=== PATIENT | male | born 1945 | race Caucasian/White ===

== ENCOUNTER 2019-04-30 12:20 | Emergency (ER) | payer OTHER, SELFPAY ==
[2019-04-30] VITALS (60 sets, daily range): BP systolic 138–177; BP diastolic 77–93; PULSE 64–96; RESP 12–28; TEMP 36.6–36.8; O2SAT 94–98
--- NOTE | 2019-04-30 12:41 | DI.RAD_ITS ---
EXAM: XR CHEST 2V PA LATERAL INDICATION: chest pain, exertional. COMPARISON: No exams were available for comparison TECHNIQUE: 2D digital imaging was performed. FINDINGS: The heart size is normal. The aorta is mildly tortuous but appears normal in diameter. Leads overli e the chest. The lungs appear clear. No pneumothorax, infiltrate or effusion is seen. There is no evidence of thoracic compression fractures. IMPRESSION: No acute abnormality.
--- NOTE | 2019-04-30 12:44 | W.ED.GENAD ---
Discharge Plan Disposition Patient Disposition: [facility] Condition: Serious Discharge Details Chief Complaint: Chest Pain Clinical Impression: Angina pectoris, unstable Primary Care Provider: Jose Alfredo Garcia ED Provider: Jolie Fajardo Home Meds and New Rx's Prescriptions: New amoxicillin 250 mg/5 mL suspension for reconstitution 500 mg PO BID 10 Days Qty: 200 RF: 0 Continued atenolol 25 MG tablet 1 tab PO DAILY RF: 0 aspirin [Aspir-81] 81 MG tablet,delayed release (DR/EC) 1 tab PO DAILY RF: 0 simvastatin 40 MG tablet 1 tab PO DAILY RF: 0 cyclobenzaprine 10 MG tablet 5 mg PO BID Qty: 20 RF: 0 hydrocodone-acetaminophen 1 TAB tablet 1 tab PO Q4H Qty: 15 RF: 0 potassium chloride [Klor-Con M20] 20 MEQ tablet,ER particles/crystals 20 meq PO DAILY Qty: 30 RF: 0 Discharge Instructions Instructions: Chest Pain (ED) Additional Instructions: You are leaving AGAINST MEDICAL ADVICE to go private vehicle to the [facility] in [place] where plan is for you to be admitted for your concerning chest pain. Please go directly there. Do not drive. Referrals: Jose Alfredo Garcia [Primary Care Provider] - Discharge Data Discharge Date/Time-TO BE ENTERED AT DEPARTURE: 04/30/19 18:20 Medical Decision Making <MYRA Hsu - Last Filed: 05/01/19 22:43> Is a 73-year-old patient with a history of a previous CO with a stent in place who has a history of high cholesterol and hypertension, former smoker presenting to the emergency room for exertional chest pain. Patient has had multiple episodes of exertional chest pain. Most recently this morning. Patient was shoveling snow and he had onset of substernal chest pain associated with diaphoresis and lightheadedness. Chest pain relieved with rest. Patient spoke with his CT doctor who recommended he come to the emergency room for further evaluation of his heart. Patient reports he is feeling at his baseline at this time. Patient's EKG reveals a heart rate of 75 with a regular rhythm with no new ST segment changes. Mild flattening noted in aVL. This was reviewed with Elisabeth Torre. This was compared to an EKG 2016. No significant change noted. Patient's initial troponin is negative. Patient does have a notable heart score of 6. Pending second troponin. Patient continues to feel well on reevaluation. Patient signed out pending repeat troponin <MYRA Mullen - Last Filed: 04/30/19 18:13> Care transition to myself from Val Massey PA-C with repeat troponin pending. Please review her note for initial presentation and physical exam findings. Repeat troponin is normal. However, patient's heart score is 6 putting him at moderate risk. His history is highly concerning for unstable angina feel that admission is appropriate. I did discuss this with the patient who is in agreement. Spoke with the [facility] who agrees to accept the patient in admission for continued monitoring and with the stress test tomorrow. Discussed this plan with the patient. He is adamant that he would not go down via EMS and prefers to be transferred private vehicle. He would not be the one driving. Patient is aware that this means he is leaving AGAINST MEDICAL ADVICE. He will go to the emergency department where he will be reevaluated. IV has been removed by nursing staff. He is well aware of the risks associated with this and is cognitively able to make this decision. All of his questions and concerns were addressed. Dr. Sousa accepting physician HPI <MYRA Hsu - Last Filed: 05/01/19 22:43> General Date/Time Provider Initiated Documentation: 04/30/19 12:28. HPI Narrative: This a very pleasant 73-year-old gentleman who presents to the emergency room for evaluation of chest pain he experienced this morning. Patient reports he was shoveling snow and he had onset of substernal chest pain without radiation. Patient did report during the episode of chest pain he did have associated diaphoresis and dizziness. Patient reports after experiencing chest pain he rested and chest pain resolved on its own without any additional treatment. Patient does report a history of CO in the past resulting in a single stent in his heart. Patient reports at this time he does take blood pressure medication as well as high cholesterol medication and a daily aspirin which he did take this morning. Patient reports at this time he feels at his baseline with no persistent chest pain. Patient denies nausea or vomiting. No abdominal pain. Has been eating and drink without difficulty. Patient reports he has had multiple episodes of chest pain which are similar to this previously experience chest pain when changing a tire. He spoke with his CT doctor who recommended he come to the emergency room for a checkup of his heart Related Data Home Medications Medication Instructions Recorded Confirmed aspirin [Aspir-81] 1 tab PO DAILY 12/20/14 04/30/19 atenolol 1 tab PO DAILY 12/20/14 04/30/19 cyclobenzaprine 5 mg PO BID #20 tab 12/20/14 04/30/19 hydrocodone-acetaminophen 1 tab PO Q4H #15 tab 12/20/14 04/30/19 simvastatin 1 tab PO DAILY 12/20/14 04/30/19 potassium chloride [Klor-Con M20] 20 meq PO DAILY #30 tabcr 01/28/16 04/30/19 amoxicillin 500 mg PO BID 10 Days #200 ml 04/30/19 Previous Rx's Medication Instructions Recorded cyclobenzaprine 5 mg PO BID #20 tab 12/20/14 hydrocodone-acetaminophen 1 tab PO Q4H #15 tab 12/20/14 potassium chloride [Klor-Con M20] 20 meq PO DAILY #30 tabcr 01/28/16 amoxicillin 500 mg PO BID 10 Days #200 ml 04/30/19 Allergies Allergy/AdvReac Type Severity Reaction Status Date / Time No Known Allergies Allergy Unverified 04/30/19 12:43 General Stated Complaint: Chest Pain MILAN: 2 Review of Systems <MYRA Hsu - Last Filed: 05/01/19 22:43> All systems reviewed & are unremarkable except as noted in HPI and below Constitutional Constitutional: Denies chills, Reports excessive sweating and Denies fever(s) ENT Ears, Nose, Mouth, and Throat: Denies neck pain Cardiovascular Cardiovascular: Denies chest pain at rest, Reports chest pain with activity, Denies syncope, Reports lightheadedness, Denies radiating jaw, neck or arm pain and Reports dyspnea on exertion Respiratory Respiratory: Denies cough, Reports dyspnea on exertion and Denies wheezing Gastrointestinal Gastrointestinal: Denies abdominal pain, Denies nausea and Denies vomiting Musculoskeletal Musculoskeletal: Denies neck pain Neurologic Neurologic: Denies syncope Endocrine Endocrine: Reports excessive sweating Allergic/Immunologic Allergic/Immunologic: Denies wheezing PFSH <MYRA Hsu - Last Filed: 05/01/19 22:43> Medical History High blood pressure (Chronic) High cholesterol (Chronic) Social History Smoking/Tobacco Use Status: Former Tobacco Use Drug use: Never Exam <MYRA Hsu - Last Filed: 05/01/19 22:43> Narrative Exam Narrative: CONST: Healthy appearing patient, in no acute distress. Well hydrated. Alert and alert. NECK: Normal visual inspection. FROM. No lymphadenopathy. Trachea midline. No Midline tenderness. CHEST: Normal insepection of the chest. RESP: Normal respiratory effort. Speaking full sentences. No cough. No wheezing. No retractions. Clear to auscaltation. Breath sound equal and present bilaterally. CARDIO: No JVD. Normal PMI. Regular Rate. Regular Rhythm. Normal peripheral pulses. GI: Normal inspection of abdomen. No distension. Soft. Nontender. Bowel sounds present in all 4 quadrants. No rebound. No gaurding. MUSCULOSKELETAL: Normal Gait. FROM of all extremities. Distal neurovascularly intact. Sensation intact distally. No distal edema SKIN: Normal. Dry. No rashes. NEURO: Alert and awake. Speech clear. PSYCH: Normal affect. Cooperative. Course <MYRA Hsu - Last Filed: 05/01/19 22:43> Vital Signs Vital signs: Vital Signs Temperature 36.6 C 04/30/19 12:24 Pulse 75 04/30/19 12:24 Respiratory Rate 23 04/30/19 12:24 Blood Pressure 170/90 H 04/30/19 12:24 Pulse Oximetry 97 04/30/19 12:24 Temperature 36.6 C 04/30/19 12:24 Temperature Source Skin 04/30/19 12:24 Pulse 74 04/30/19 12:34 Pulse 73 04/30/19 12:35 Respiratory Rate 18 04/30/19 12:40 Respiratory Effort Non-Labored 04/30/19 12:40 Respiratory Depth Normal 04/30/19 12:40 Respiratory Pattern Normal 04/30/19 12:40 Blood Pressure 162/93 H 04/30/19 12:34 Blood Pressure Mean 110 04/30/19 12:34 Blood Pressure Position Sitting 04/30/19 12:24 Pulse Oximetry 96 04/30/19 12:35 Oxygen Delivery Method Room Air 04/30/19 12:24 Oxygen Flow Rate 0 04/30/19 12:24 Sign Out <MYRA Hsu - Last Filed: 05/01/19 22:43> Sign Out Data: Sign Out Comment: Patient signed out pending repeat troponin and likely admission for stress testing giving his elevated heart score of 6 and very concerning exertional chest pain history. Last updated by eJssi Cannon PA at 04/30/19 16:13
[2019-04-30] MEDS: Aspirin 81 MG CHEW 243 MG CH (12:51)
[2019-04-30 13:03] LABS: Abs Immature Grans 0.01 k/cumm (0.0-0.09); Absolute Basophil Count 0.02 k/cumm (0.0-0.2); Absolute Eosinophil Count 0.14 k/cumm (0.0-0.7); Absolute Lymphocyte Count 1.61 k/cumm (1.2-3.4); Absolute Monocyte Count 0.68 k/cumm (0.11-0.7); Absolute Neutrophil Count 3.89 k/cumm (1.2-6.7); Basophils % 0.3; Eosinophils % 2.2; HCT 43.5 % (40.0-50.0); HGB 14.3 g/dL (13.5-17.5); Immature Grans % 0.2; Lymphocytes % 25.4; Mean Corp. HGB Concentration 32.9 g/dL (32.0-36.0); Mean Corpuscular Volume 94.4 fL (80-95); Mean Platelet Volume 9.1 fL (8.0-11.0); Monocytes % 10.7; Neutrophils % 61.2; Platelet Count 159 x1000/uL (130-400); RBC 4.61 m/cumm (4.50-6.00); RBC Distribution Width 13.4 % (11.8-14.1); White Blood Cell Count 6.35 k/cumm (4.4-10.8)
[2019-04-30 13:40] LABS: ALT 32 U/L (16-63); AST 26 U/L (15-37); Albumin 3.5 g/dL (3.4-5.0); Alkaline Phosphatase 67 U/L (46-116); Anion Gap 7.9 mmol/L (3-11); BUN 10 mg/dL (7-18); Bilirubin, Total 0.5 mg/dL (0.2-1.0); CO2 29.1 mmol/L (21.0-32.0); CREATININE 1.08 mg/dL (0.70-1.30); Calcium 9.5 mg/dL (8.5-10.1); Chloride 103 mmol/L (98-107); Glucose 123 mg/dL (74-106); Magnesium 2.2 mg/dL (1.8-2.4); Potassium 4.2 mmol/L (3.5-5.1); Sodium 140 mmol/L (136-145); Total Protein 7.1 g/dL (6.4-8.2)
[2019-04-30 13:52] LABS: Troponin I < 0.05 ng/Ml (<0.06)
[2019-04-30 16:36] LABS: Troponin I < 0.05 ng/Ml (<0.06)
== END 2019-04-30 18:20 | disposition short-term general hospital (02) ==
PROVIDERS: Physician Assistant; Emergency Provider Physician Assistant; PCP Internal Medicine
DX: I20.0 Unstable angina (principal); I25.2 Old myocardial infarction; Z95.5 Presence of coronary angioplasty implant and graft; Z53.29 Procedure and treatment not carried out because of patient's decision for other reasons
CPT/HCPCS: 36415; 80053; 93005; 99285; 71046; 83735; 84484; 85025; 93010

== ENCOUNTER → 2021-09-28 02:59 | Outpatient (CLI) | payer OTHER, SELFPAY ==
--- NOTE | 2021-09-28 08:30 | DI.DEXA_ITS ---
Exam(s) XR DEXA BONE DENSITY W/WO AVA EXAM: XR DEXA BONE DENSITY W/WO AVA CLINICAL HISTORY: PROSTATE CA,C61,ON HORMONE THERAPY, [id number],? OSTEOPENIA,BASELINE TECHNIQUE: COMPARISON: No exams were available for comparison FINDINGS: Lateral Spine Image: Unremarkable. No compression deformities identified. Left hip: Total T-Score: 0.2 Total Z-Score: 1.0 T- and Z-scores: Within normal limits. Lumbar Spine: Total T-Score: 4.4 Total Z-Score: 5.5 T- and Z-scores: Within normal limits. IMPRESSION: No evidence of osteoporosis.
== END ==
PROVIDERS: PCP Internal Medicine; Visit Provider Radiology Radiation Oncology
DX: C61 Malignant neoplasm of prostate (principal); Z79.899 Other long term (current) drug therapy; Z13.820 Encounter for screening for osteoporosis
CPT/HCPCS: 77080

== ENCOUNTER 2021-12-17 02:22 | Outpatient (CLI) | payer MEDICARE, SELFPAY ==
[2021-12-18 11:32] LABS: PSA, Ultrasensitive 0.02 ng/mL (<= 6.5)
[2021-12-23 21:49] LABS: Testosterone, Total 8.1 ng/dL (240-950)
== END 2021-12-17 02:23 | disposition home or self-care (01) ==
LOC: LBO 02:23
PROVIDERS: PCP Internal Medicine; Visit Provider Radiology Radiation Oncology
DX: C61 Malignant neoplasm of prostate (principal)
CPT/HCPCS: 36415; 84153; 84403

== ENCOUNTER 2021-12-27 18:52 | Emergency (ER) | payer OTHER, SELFPAY ==
--- OUTSIDE RECORDS SUMMARY | 2021-12-27 18:57 | XMS_ITS | Encounter Summary ---
:1945 Author Organization [facility] [place] [address] Care Team Providers Name Role Phone Janusz Reddy MD Primary Care Provider [phone] Encounter Details Date Type Department Care Team Description 09/08/2021 Orders Only Radiation Oncology at [facility] neoplasm of [facility] [employer] prostate (Primary Dx) Counts include [address] [facility] [address] [facility] [place] [address] RADIATION ONCOLOGY [phone] [place] [id number] Social History Tobacco Use Types Packs/Day Years Used Date Former Smoker Cigarettes 15 Quit: 05/01/20 02 Smokeless Tobacco: Never Used Alcohol Use Standard Drinks/Week Comments Yes 21 (1 standard drink = 0.6 oz pure alcoh ol) 3-4 beers a day Alcohol Habits Answer Date Recorded How often do you have a drink containing alcohol? Not asked How many drinks containing alcohol do you have on a Not aske d typical day when you are drinking? How often do you have six or more drinks on one Not asked occasion? Comment: 3-4 beers a day 06/19/2021 Food Insecurity Answer Date Recorded Within the past 12 months, you worried that your food Patien t refused 06/19/2021 would run out before you got money to buy more. Within the past 12 months, the food you bought just Never tr ue 06/19/2021 didn't last and you didn't have money to get more. Transportation Needs Answer Date Recorded In the past 12 months, has lack of transportation kept you f rom No 06/19/2021 medical appointments or from getting medications? In the past 12 months, has lack of transportation kept you f rom No 06/19/2021 meetings, work, or getting things needed for daily living? Housing Stability Answer Date Recorded In the last 12 months, was there a time when you were Patien t refused 06/19/2021 not able to pay the mortgage or rent on time? In the last 12 months, how many places have you lived? Not a sked In the last 12 months, was there a time when you did No 06/19/[address] to sleep or slept in a correction (including now)? Sex Assigned at Date Recorded Not on file documented as of this encounter Plan of Treatment Not on filedocumented as of this encounter Visit Diagnoses Diagnosis Malignant neoplasm of prostate - Primary documented in this encounter Care Teams Entry Examiner Relationship Specialty Start Date End Date Janusz Reddy MD PCP - General General Internal Medicine 04/28/[address] [place] [id number] documented as of this encounter
--- OUTSIDE RECORDS SUMMARY | 2021-12-27 18:57 | XMS_ITS | Clinical Summary ---
:1945 Author Organization [facility] [place] [address] Care Team Providers Name Role Phone Janusz Rdedy MD Primary Care Provider Allergies Active Allergy Reactions Severity Noted Date Comments Lactose Nausea And Vomiting 04/18/2012 Medications Medication Sig Dispensed Refills Start Date End Date Status atorvastatin (LIPITOR) 40 mg Take 40 mg 0 Active Tablet by mouth daily. carboxymethylcellulose Apply 1 drop 0 Active (REFRESH PLUS) 0.5 % to eye 4 Dropperette times daily as needed. metoprolol succinate Take 1 14 tablet 0 05/03/2019 Active (TOPROL-XL) 50 mg Tablet tablet by Sustained Release 24 hr mouth 2 times daily. Additional Information Patient not taking. Reported on 12/25/2021 naltrexone (Depade) 50 daily as needed. To 0 021 Active mg Tablet help to abstain from alcohol lisinopriL (Zestril) 10 0.5 tablets 2 times 0 2021 Active mg Tablet daily. hydrOXYzine (Atarax) 25 nightly as needed. 0 022 Active mg Tablet tamsulosin (Flomax) 0.4 Take 1 capsule by 60 capsule 3 022 05/06/2022 Active mg CapsuleIndications: mouth nightly for Malignant neoplasm of 240 days. prostate calcium-vitamin D 500 Take 1 tablet by 0 Active mg-5 mcg (200 unit) mouth 2 times daily Tablet (with meals). Active Problems Problem Noted Date Malignant neoplasm of prostate 06/17/2021 Cancer Staging: Clinical: Stage IIC (cT2 b, cN0, cM0, PSA: 13.2, Grade Group: 4) - Signed by Edgard Moses MD on 06/17/2021 Unstable angina 05/01/2019 Essential hypertension 05/01/2019 CAD (coronary artery disease) 05/01/2019 Encounters Date Type Specialty Care Team Description 12/25/2021 Infusion Hematology and Malignant adela plasm of Oncology prostate 12/25/2021 Office Visit Radiation Oncology Edgard Moses [place] gn[place] neoplasm of prostate 10/19/2021 Notes Only Radiation Oncology Edgard Moses MD 10/15/2021 Office Visit Radiation Oncology Edgard Moses [place] gn[place] neoplasm of prostate 10/08/2021 Office Visit Radiation Oncology Edgard Moses [place] gn[place] neoplasm of prostate 10/01/2021 Infusion Hematology and Malignant adela plasm of Oncology prostate 10/01/2021 Office Visit Radiation Oncology Edgard Moses [place] gn[place] neoplasm of prostate from Last 3 Months Family History Medical History Relation Comments Breast Cancer Daughter recieved txs at [facility] Prostate Cancer Father Relation Status Comments Daughter Alive Father Social History Tobacco Use Types Packs/Day Years [...] place to sleep or slept in a usp (including now)? Sex Assigned at Date Recorded Not on file Last Filed Vital Signs Vital Sign Reading Time Taken Comments Blood Pressure 139/75 12/25/2021 8:28 AM EDT Pulse 71 12/25/2021 8:28 AM EDT Temperature 36.1 ??C (96.9 ??F) 12/25/2021 8:26 AM EDT Respiratory Rate 16 12/25/2021 8:28 AM EDT Oxygen Saturation 99% 12/25/2021 8:28 AM EDT Inhaled Oxygen Concentration - - Weight 94.1 kg (207 lb 6.4 oz) 12/25/2021 8:26 AM EDT Height 177.8 cm (5' 10) 10/01/2021 9:47 AM EDT Body Mass Index 29.76 10/01/2021 9:47 AM EDT Plan of Treatment Health Maintenance Due Date Last Done Comments Covid-19 Vaccine (#1) 1950 Hepatitis C Screening 1964 Tdap adult 1965 Tetanus vaccine 1965 Colonoscopy 1991 Zoster vaccine (1 of 2) 1996 Advance Directive 2001 AAA Screen 2011 Pneumoccocal Vaccine: 65+ (1 - PCV) 2011 Influenza (Flu) vaccine (1 of 1 - Influenza standard 02/04/2022 series) Procedures Procedure Name Priority Date/Time Associated Comments Diagnosis LAB SCAN 12/23/2021 12:00 AM Results for this EDT procedure are i n the results section. DIAGNOSTIC RADIOLOGY 10/02/2021 12:00 AM Results for this SCAN EDT procedure are i n the results section. from Last 3 Months Results SCAN DOC: LAB (12/23/2021 12:00 AM EDT) Narrative This result has an attachment that is no t available. Unknown MEDIA MGR SCAN EXT ORDR/RSLT SCAN DOC: DIAGNOSTIC RADIOLOGY (10/02/2021 12:00 AM EDT) Narrative This result has an attachment that is no t available. Unknown MEDIA MGR SCAN EXT ORDR/RSLT from Last 3 Months Insurance Payer Benefit Plan / Subscriber ID Effective Dates Phone Addre ss Type Group [employer]AC[employer] OPTUM [place] [employer]UM [id number] 2019-Prese [phone] [address] [facility] [address] [place] [address] MEDICARE MEDICARE PART A [id number] 2019-Pres [phone] [id number] [facility] [place] [id number] Advance Directives Latest Code Status on File Code Status Date Activated Date Inactivated Comments Full Code 05/01/2019 10:21 PM 05/03/2019 1:50 PM Does patient have capacity to make decision: Yes Full Code 05/01/2019 10:21 PM 05/01/2019 10:21 PM Does patient have capacity to make decision: Yes Care Teams General Office Clerk Relationship Specialty Start Date End Date Janusz Reddy MD PCP - General General Internal Medicine 04/28/10 [address] [place] [address]
--- OUTSIDE RECORDS SUMMARY | 2021-12-27 18:57 | XMS_ITS | Encounter Summary ---
:1945 Author Organization [facility] [place] [address] Care Team Providers Name Role Phone Janusz Reddy MD Primary Care Provider [phone] Reason for Visit Reason Comments Injections Lupron Treatment/Therapy Plan Authorization (Routine) - Authorized Specialty Diagnoses / Procedures Referred By Contact Refer red To Contact Hematology and Oncology Diagnoses Malignant neoplasm of prostate Edgard Moses MD [facility] Infusion Procedures TC LEUPROLIDE ACETATE 7.5MG, FOR DEPOST SUSPENSION (LUPRON DEPOT) [id number] LUPRON DEPOT [address] [place] [address] [place] [id number] Referral ID Status Reason Start Date Expiration Date Visits V isits Requested Authorized [id number] Authorized 11/24/2021 05/23/2022 99 99 Encounter Details Date Type Department Care Team Description 12/25/2021 [facility] [address] [place] [phone] Social History Tobacco Use Types Packs/Day Years [...] place to sleep or slept in a senior care (including now)? Sex Assigned at Date Recorded Not on file documented as of this encounter Progress Notes Yadira Barrera RN - 12/25/2021 9:00 AM EDT Infusion Note Diagnosis:Prostate Cancer Treatment: Lupron Injection Lupron 22.5 mg injected in right buttocks Patient saw Dr. Moses in clinic prior to his appt for Lupron injection. He understands the side effects of Lupron, has no questions/concerns and is ready for his treatment. Plan: Mr. Alexandra will return to clinic as scheduled. He was reminded to call in the interim withany questions/concerns. documented in this encounter Plan of Treatment Not on filedocumented as of this encounter Visit Diagnoses Diagnosis Malignant neoplasm of prostate documented in this encounter Administered Medications Inactive Administered Medications - up to 3 most recent administrations Medication Order MAR Action Action Date Dose Rate Site leuprolide (Lupron Depot) Given 12/25/2021 9:04 AM 22.5 mg Right Gluteal injection 22.5 mg EDT 22.5 mg, Intramuscular, ONCE, 1 dose, On Tue12/25/21 at 0915, Routine documented in this encounter Care Teams Commercial Credit Officer Relationship Specialty Start Date End Date Janusz Reddy MD PCP - General General Internal Medicine 04/28/[address] [place] [address] documented as of this encounter
--- OUTSIDE RECORDS SUMMARY | 2021-12-27 18:57 | XMS_ITS | Encounter Summary ---
:1945 Author Organization [facility] [place] [address] Care Team Providers Name Role Phone Janusz Reddy MD Primary Care Provider [phone] Encounter Details Date Type Department Care Team Description 09/24/2021 Office Visit [facility] [address] [address] RADIATION ONCOLOGY [phone] [place], [place] [address] Social History Tobacco Use Types Packs/Day Years [...] place to sleep or slept in a group home (including now)? Sex Assigned at Date Recorded Not on file documented as of this encounter Last Filed Vital Signs Vital Sign Reading Time Taken Comments Blood Pressure 114/62 09/24/2021 10:00 AM EDT Pulse 80 09/24/2021 10:00 AM EDT Temperature 36.7 ??C (98.1 ??F) 09/24/2021 10:00 AM EDT Respiratory Rate 18 09/24/2021 10:00 AM EDT Oxygen Saturation 98% 09/24/2021 10:00 AM EDT Inhaled Oxygen Concentration - - Weight 92.7 kg (204 lb 6.4 oz) 09/24/2021 10:00 AM EDT Height - - Body Mass Index 28.91 08/06/2021 12:08 PM EST documented in this encounter Progress Notes Syed Waggoner MD - 09/24/2021 10:00 AM EDT ON TREATMENT VISIT NOTE Laurent Alexandra is a 75 y.o. 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 First Lupron (7.5 mg) was 07/09/21. Most recent lupron (7.5 mg) was 09/03/21. Current Treatment Dose: 2750cGy Anticipated Total Dose: 7000cGy Current number of RT Tx Received: 11 Anticipated total number of RT Treatments: 28 Concomitant Therapy: ADT (completed 2 weeks of bicalutamide and is currently receiving Lupron monthly) Evaluation of Port Verification Films: approved (See details in ARIA) Changes in Medical Condition: He continues on metoprolol and other antihypertensives. Nocturia about 3x per night. No dysuria, no incontinence. Stools are looser. On low fiber diet. Bowel movements are about 2 a day. One loperamide every other day or so. Mild hot flashes about 5-6 over 24 hour period. They do not typically wake him at night. Denies pain of any sort. Medications 09/18/21 1216 Medication Sig Taking? tamsulosin (Flomax) 0.4 mg Capsule Take 1 capsule by mouth nightly for 240 days. lisinopriL (Zestril) 10 mg Tablet 0.5 tablets 2 times daily. hydrOXYzine (Atarax) 25 mg Tablet nightly as needed. naltrexone (Depade) 50 mg Tablet daily as needed. To help to abstain from alcohol metoprolol succinate (TOPROL-XL) 50 mg Tablet Sustained Release 24 hr Take 1 tablet by mouth 2 timesdaily. carboxymethylcellulose (REFRESH PLUS) 0.5 % Dropperette Apply 1 drop to eye 4 times daily as needed. atorvastatin (LIPITOR) 40 mg Tablet Take 40 mg by mouth daily. Physical Examination: There were no vitals filed for this visit. KPS: 80 Response to Treatment: Early proctitis. Recommendation on Continuing Course of Therapy and Plan: Next Lupron on or after 10/01/21. Reviewed bowel recs, including low3-fiber diet, daily metamucil, and daily probiotic. Has been advised to start calcium 600 mg BID with meals along with Vit D 400-800 IUs daily. Is scheduled for DEXA. Continue XRT. Syed Waggoner M.D. (covering for Dr. Moses) documented in this encounter Plan of Treatment Not on filedocumented as of this encounter Visit Diagnoses Diagnosis Malignant neoplasm of prostate documented in this encounter Care Teams Traveling Crane Operator Relationship Specialty Start Date End Date Janusz Reddy MD PCP - General General Internal Medicine 04/28/10 [address] [place] [address] documented as of this encounter
--- OUTSIDE RECORDS SUMMARY | 2021-12-27 18:57 | XMS_ITS | Encounter Summary ---
:1945 Author Organization [facility] [place] [address] Care Team Providers Name Role Phone Janusz Reddy MD Primary Care Provider [phone] Reason for Visit Reason Comments Chemotherapy Lupron 22.5 Treatment/Therapy Plan Authorization (Routine) - Closed Specialty Diagnoses / Procedures Referred By Contact Refer red To Contact Hematology and Oncology Diagnoses Malignant neoplasm of prostate Edgard Moses MD [facility] Hem Onc Infusion Procedures CHEMO [address] [place] [address] [place] [id number] Referral ID Status Reason Start Date Expiration Date Visits Requ ested Visits Authorized [id number] Closed 04/10/2021 10/07/2021 99 99 Encounter Details Date Type Department Care Team Description 10/01/2021 [facility] prostate [address] [place] [phone] Social History Tobacco Use Types [...] place to sleep or slept in a snf (including now)? Sex Assigned at Date Recorded Not on file documented as of this encounter Progress Notes Sola Vernon RN - 10/01/2021 10:00 AM EDT INFUSION THERAPY ADMINISTRATION NOTES TIME TREATMENT STARTED: 1019 TIME TREATMENT ENDED: 1034 DIAGNOSIS: prostate cancer PROTOCOL:na CYCLE #: every 3 months REASON FOR VISIT: lupron SUBJECTIVE Laurent Alexandra offers no complaints. OBJECTIVE lupron 22.5 mg IM left gluteal REACTIONS (DESCRIPTION, TIME, INTERVENTION AND EFFECTIVENESS) none ASSESSMENT Luarent Alexandra was awake, alert and he tolerated treatment well. PLAN Return to clinic per routine. documented in this encounter Plan of Treatment Not on filedocumented as of this encounter Visit Diagnoses Diagnosis Malignant neoplasm of prostate documented in this encounter Administered Medications Inactive Administered Medications - up to 3 most recent administrations Medication Order MAR Action Action Date Dose Rate Site leuprolide (Lupron Depot) Given 10/01/2021 10:27 AM 22.5 mg Left Gluteal injection 22.5 mg EDT 22.5 mg, Intramuscular, ONCE, 1 dose, On Aiyana 10/01/21 at 1030, Routine documented in this encounter Care Teams Driver Starting Gate Relationship Specialty Start Date End Date Janusz Reddy MD PCP - General General Internal Medicine 04/28/[address] [place] [address] documented as of this encounter
--- OUTSIDE RECORDS SUMMARY | 2021-12-27 18:57 | XMS_ITS | Encounter Summary ---
:1945 Author Organization [facility] [place] [address] Care Team Providers Name Role Phone Janusz Reddy MD Primary Care Provider [phone] Encounter Details Date Type Department Care Team Description 09/11/2021 Office Visit Radiation Oncology at Valentin Gee MD Malignant neoplasm of [address] [place], [place] RADIATION ONCOL OGY [address] [place] [address] [phone] Social History Tobacco Use Types Packs/Day Years [...] place to sleep or slept in a jail (including now)? Sex Assigned at Date Recorded Not on file documented as of this encounter Last Filed Vital Signs Vital Sign Reading Time Taken Comments Blood Pressure 141/72 09/11/2021 8:00 AM EDT Pulse 72 09/11/2021 8:00 AM EDT Temperature 36.7 ??C (98.1 ??F) 09/11/2021 8:00 AM EDT Respiratory Rate 16 09/11/2021 8:00 AM EDT Oxygen Saturation 100% 09/11/2021 8:00 AM EDT Inhaled Oxygen Concentration - - Weight 92.5 kg (204 lb) 09/11/2021 8:00 AM EDT Height - - Body Mass Index 28.86 08/06/2021 12:08 PM EST documented in this encounter Progress Notes Emil Gee MD - 09/11/2021 8:30 AM EDT ON TREATMENT VISIT NOTE Laurent Alexandra is a 75 y.o. 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 Current Treatment Dose: 500cGy Anticipated Total Dose: 7000cGy Current number of RT Tx Received: 2 Anticipated total number of RT Treatments: 28 Concomitant Therapy: ADT (completed 2 weeks of bicalutamide and is currently receiving Lupron monthly) Evaluation of Port Verification Films: approved (See details in ARIA) Changes in Medical Condition: Stable nocturia x3 with no changes as he stopped Flomax. He is awaiting the prescription to be filled at the [facility]. No diarrhea. Hot flashes: Stable not requiring any medications. Medications 09/11/21 0846 Medication Sig Taking? lisinopriL (Zestril) 10 mg Tablet 0.5 tablets 2 times daily. Yes hydrOXYzine (Atarax) 25 mg Tablet nightly as needed. Yes naltrexone (Depade) 50 mg Tablet daily as needed. To help to abstain from alcohol Yes metoprolol succinate (TOPROL-XL) 50 mg Tablet Sustained Release 24 hr Take 1 tablet by mouth 2 timesdaily. Yes carboxymethylcellulose (REFRESH PLUS) 0.5 % Dropperette Apply 1 drop to eye 4 times daily as needed.Yes atorvastatin (LIPITOR) 40 mg Tablet Take 40 mg by mouth daily. Yes tamsulosin (Flomax) 0.4 mg Capsule Take 1 capsule by mouth nightly for 240 days. Patient not taking: Reported on 09/11/2021 Physical Examination: Vitals: 09/11/21 0800 BP: 141/72 Pulse: 72 Resp: 16 Temp: 36.7 ??C (98.1 ??F) SpO2: 100% Weight: 92.5 kg (204 lb) KPS: 80 Response to Treatment: Stable Recommendation on Continuing Course of Therapy and Plan: Continue radiation therapy as planned. Resume Flomax once filled. Lupron as per schedule documented in this encounter Plan of Treatment Not on filedocumented as of this encounter Visit Diagnoses Diagnosis Malignant neoplasm of prostate documented in this encounter Care Teams Help Desk Assistant Relationship Specialty Start Date End Date Janusz Reddy MD PCP - General General Internal Medicine 04/28/[address] [place] [address] documented as of this encounter
--- OUTSIDE RECORDS SUMMARY | 2021-12-27 18:57 | XMS_ITS | Encounter Summary ---
:1945 Author Organization [facility] [place] [address] Care Team Providers Name Role Phone Janusz Reddy MD Primary Care Provider [phone] Encounter Details Date Type Department Care Team Description 10/19/2021 Notes Only Radiation Oncology at [facility] Edgard MD [address] [facility] RADIATION ONCOLOGY [place], [place] [address] [place], [place] [phone] (Wo rk) Social History Tobacco Use Types Packs/Day Years Used Date Former Smoker Cigarettes 15 Quit: 05/01/20 Smokeless Tobacco: Never Used Alcohol Use Standard [...] place to sleep or slept in a custodial (including now)? Sex Assigned at Date Recorded Not on file documented as of this encounter Progress Notes Edgard Moses MD - 10/19/2021 9:30 AM EDT Images from the original note were not included. [facility] Medicine Radiation Oncology Radiation Therapy Completion Note Patient ID ?? Name Laurent Alexandra Date of 1945 ? PCP Janusz Reddy MD Referring MD (if different) Bhargavi Figueroa @ [place] ? Diagnosis High-Risk Prostate Cancer (Gl 8, PSA 13, cT2) ? NEOADJUVANT / CONCURRENT THERAPY: LT ADT (planned 18 mos.) ONCBCN ONCOLOGY (AMB) 07/09/2021 08/06/2021 09/03/2021 10/01/2021 leuprolide (Lupron Depot) IM 7.5 mg 7.5 mg 7.5 mg 22.5 mg ?? INTENT OF THERAPY: Definitive (Curative) ?? Radiotherapy Details ?? Treatment Site Prostate / Proximal SV / Pelvis ?? Prescribed Dose 70Gy in 28 fractions / 58.8Gy / 50.4Gy in 28 fractions ? Start Date End Date Elapsed Days 09/10/21 10/19/21 39d ?? Clinical Course Treatment tolerance: With regard to side effects noted during radiotherapy, the patient tolerated treatment extremely well with no significant acute (Grade 3 or above) toxicity or unplanned breaks. Treatment response: The patient's response to treatment was undetermined, as he was largely asymptomatic at the time of presentation. Future assessment will be determined via serial PSA. Follow up plan: Follow-up visit with Radiation Oncology in [facility] is scheduled for 12/25/21; he has received instructions to call this office or seek the help of the local emergency room if any further problems should arise prior to followup. EDGARD MOSES MD 10/22/2021 ??? National [facility] [place] (NCI) [facility] ??? [employer] Commission on Cancer (ACS [place]) Accredited Cancer Program ??? [employer] ([employer]) Accredited Radiation Oncology Program documented in this encounter Plan of Treatment Not on filedocumented as of this encounter Visit Diagnoses Not on filedocumented in this encounter Care Teams Opthalmic Tech Relationship Specialty Start Date End Date Janusz Reddy MD PCP - General General Internal Medicine 04/28/[address] [place] [id number] documented as of this encounter
--- OUTSIDE RECORDS SUMMARY | 2021-12-27 18:57 | XMS_ITS | Encounter Summary ---
:1945 Author Organization [facility] [place] [address] Care Team Providers Name Role Phone Janusz Reddy MD Primary Care Provider [phone] Encounter Details Date Type Department Care Team Description 10/01/2021 Office Visit Radiation Oncology at Edgard Moses M alignant neoplasm of [facility] prostate [address] [place], [place] RADIATION ONCOL OGY [address] [place], [place] [phone] (Wo rk) Social History Tobacco Use Types [...] to sleep or slept in a senior living (including now)? Sex Assigned at Date Recorded Not on file documented as of this encounter Last Filed Vital Signs Vital Sign Reading Time Taken Comments Blood Pressure 113/60 10/01/2021 9:47 AM EDT Pulse 77 10/01/2021 9:47 AM EDT Temperature 36.9 ??C (98.4 ??F) 10/01/2021 9:47 AM EDT Respiratory Rate 18 10/01/2021 9:47 AM EDT Oxygen Saturation 99% 10/01/2021 9:47 AM EDT Inhaled Oxygen Concentration - - Weight 91.6 kg (202 lb) 10/01/2021 9:47 AM EDT Height 177.8 cm (5' 10) 10/01/2021 9:47 AM EDT Body Mass Index 28.98 10/01/2021 9:47 AM EDT documented in this encounter Progress Notes Edgard Moses MD - 10/01/2021 9:45 AM EDT Images from the original note were not included. RADIATION ONCOLOGY - Weekly On Treatment Visit Note 10/01/21 EDGARD MOSES MD Radiation Oncology [facility] [phone] (paging chemical reclamation equipment operator) Pager #[phone] PATIENT IDENTIFICATION Name Laurent Alexandra Date of 1945 PCP Janusz Reddy MD Referring MD (if different) Bhargavi Figueroa @ [place] Diagnosis High-Risk Prostate Cancer (Gl 8, PSA 13, cT2) NEOADJUVANT / CONCURRENT THERAPY: ONCBCN ONCOLOGY (AMB) 07/09/2021 08/06/2021 09/03/2021 leuprolide (Lupron Depot) IM 7.5 mg 7.5 mg 7.5 mg INTENT OF THERAPY: Definitive (Curative) RADIATION TREATMENT DETAILS: Treatment Site Prostate / Proximal SV / Pelvis Prescribed Dose 70Gy in 28 fractions / 58.8Gy / 50.4Gy in 28 fractions Current Dose: 40 Gy in 16 fractions INTERVAL HISTORY General No changes since last seen. GI Stools are loose this week, taking Imodium with relief. Nocturia 3-4 x/nt at baseline. Much worse lately - more like 7-8x/nt. Taking Flomax 0.4mg qhs. Alsonotes dysuria as of this week. Baseline IPSS history is listed below. Pain: Pain score today is 0/10. Prostate Today's Scores 06/19/2021 08/19/2021 Sexual Health Inventory for Men 2 (Severe ED) - International Prostate Symptom Score 18 (Moderate LUTS) 18 (Moderate LUTS) MEDICATIONS Medications 10/01/21 0952 Medication Sig Taking? calcium-vitamin D 500 mg-5 mcg (200 unit) Tablet Take 1 tablet by mouth 2 times daily (with meals). Yes loperamide (IMODIUM A-D) 2 mg Tablet Take by mouth 4 times daily as needed for Diarrhea. Maximum 16 mg in 24 hours Yes tamsulosin (Flomax) 0.4 mg Capsule Take 1 capsule by mouth nightly for 240 days. Yes lisinopriL (Zestril) 10 mg Tablet 0.5 tablets [...] Take 40 mg by mouth daily. Yes IMAGING I have personally reviewed this patient's interval portal imaging to confirm accurate positioning and alignment which matches the patient's original approved treatment planning images. EXAM: BP 113/60 (Patient Position: Sitting) Pulse 77 Temp 36.9 ??C (98.4 ??F) (Temporal) Resp 18 Ht 177.8 cm (5' 10) Wt 91.6 kg (202 lb) SpO2 99% BMI 28.98 kg/m?? Constitutional: he appears well-developed and well-nourished. No distress. Performance Status: KPS Score ECOG Grade Definition 90-100 0 Fully active, able to carry on all pre-disease performance without restriction XX 70-80 1 Restricted in physically strenuous activity but ambulatory and able to carry out work of a light or sedentary nature, e.g., light house work, office work 50-60 2 Ambulatory and capable of all selfcare but unable to carry out any work activities; up and about more than 50% of waking hours 30-40 3 Capable of only limited selfcare; confined to bed or chair more than 50% of waking hours 10-20 4 Completely disabled; cannot carry on any selfcare; totally confined to bed or chair IMPRESSION/PLAN Tolerance to radiotherapy/ADT: Tolerating as anticipated. Continue as planned. Lupron due today - he wants a 3 month shot LUTS: Rec double flomax to 0.8mg qhs, and take Aleve BID qAC Followup: Return to clinic next week for on treatment check. documented in this encounter Plan of Treatment Not on filedocumented as of this encounter Visit Diagnoses Diagnosis Malignant neoplasm of prostate documented in this encounter Care Teams Roentgenology Teacher Relationship Specialty Start Date End Date Janusz Reddy MD PCP - General General Internal Medicine 04/28/[address] [place] [address] documented as of this encounter
--- OUTSIDE RECORDS SUMMARY | 2021-12-27 18:57 | XMS_ITS | Encounter Summary ---
:1945 Author Organization [facility] [place] [address] Care Team Providers Name Role Phone Janusz Reddy MD Primary Care Provider [phone] Encounter Details Date Type Department Care Team Description 10/15/2021 Office Visit Radiation Oncology at Edgard Moses M alignant neoplasm of [facility] prostate [address] [place], [place] RADIATION ONCOL OGY [address] [place], [place] [phone] (Wo rk) Social History Tobacco Use Types [...] Sign Reading Time Taken Comments Blood Pressure 120/64 10/15/2021 9:00 AM EDT Pulse 76 10/15/2021 9:00 AM EDT Temperature 36.7 ??C (98 ??F) 10/15/2021 9:00 AM EDT Respiratory Rate 16 10/15/2021 9:00 AM EDT Oxygen Saturation 98% 10/15/2021 9:00 AM EDT Inhaled Oxygen Concentration - - Weight 92.6 kg (204 lb 3.2 oz) 10/15/2021 9:00 AM EDT Height - - Body Mass Index 29.3 10/01/2021 9:47 AM EDT documented in this encounter Progress Notes Edgard Moses MD - 10/15/2021 9:30 AM EDT Images from the original note were not included. RADIATION ONCOLOGY - Weekly On Treatment Visit Note 10/15/21 EDGARD MOSES MD Radiation Oncology [facility] [phone] (paging tomahawk weapon system operator) Pager #[phone] PATIENT IDENTIFICATION Name Laurent Alexandra Date of 1945 PCP Janusz Reddy MD Referring MD (if different) Bhargavi Figueroa @ [place] Diagnosis High-Risk Prostate Cancer (Gl 8, PSA 13, cT2) NEOADJUVANT / CONCURRENT THERAPY: LT ADT (planned 18 mos.) ONCBCN ONCOLOGY (AMB) 07/09/2021 08/06/2021 09/03/2021 10/01/2021 leuprolide (Lupron Depot) IM 7.5 mg 7.5 mg 7.5 mg 22.5 mg INTENT OF THERAPY: Definitive (Curative) RADIATION TREATMENT DETAILS: Treatment Site Prostate / Proximal SV / Pelvis Prescribed Dose 70Gy in 28 fractions / 58.8Gy / 50.4Gy in 28 fractions Current Dose: 65 Gy in 26 fractions INTERVAL HISTORY General Overall feels fair. GI Diarrhea has resolved. Nocturia 3-4 x/nt at baseline, now going 5x/nt. Taking Flomax 0.4mg qhs. Also notes stable, mild intermittent dysuria rated 3/10. Not taking Aleve. Baseline IPSS history is listed below. Pain: Pain score today is 0/10. Prostate Today's Scores 06/19/2021 08/19/2021 Sexual Health Inventory for Men 2 (Severe ED) - International Prostate Symptom Score 18 (Moderate LUTS) 18 (Moderate LUTS) MEDICATIONS Medications 10/15/21 0954 Medication Sig Taking? calcium-vitamin D 500 mg-5 mcg (200 unit) Tablet Take 1 tablet by mouth 2 times daily (with meals). Yes tamsulosin (Flomax) 0.4 mg Capsule Take 1 capsule by mouth nightly for 240 days. Yes lisinopriL (Zestril) 10 mg Tablet 0.5 tablets 2 times daily. Yes hydrOXYzine (Atarax) 25 mg Tablet nightly as needed. Yes carboxymethylcellulose (REFRESH PLUS) 0.5 % Dropperette Apply 1 drop to eye 4 times daily as needed.Yes atorvastatin (LIPITOR) 40 mg Tablet Take 40 mg by mouth daily. Yes loperamide (IMODIUM A-D) 2 mg Tablet Take by mouth 4 times daily as needed for Diarrhea. Maximum 16 mg in 24 hours naltrexone (Depade) 50 mg Tablet daily as needed. To help to abstain from alcohol metoprolol succinate (TOPROL-XL) 50 mg Tablet Sustained Release 24 hr Take 1 tablet by mouth 2 timesdaily. Patient not taking: Reported on 10/15/2021 IMAGING I have personally reviewed this patient's interval portal imaging to confirm accurate positioning and alignment which matches the patient's original approved treatment planning images. EXAM: BP 120/64 Pulse 76 Temp 36.7 ??C (98 ??F) Resp 16 Wt 92.6 kg (204 lb 3.2 oz) SpO2 98% BMI 29.30 kg/m?? Constitutional: he appears well-developed and well-nourished. [...] radiotherapy/ADT: Tolerating as anticipated. Continue as planned. Completes next week. Next Lupron due in December. LUTS: Rec cont flomax to 0.4mg qhs - he may increase to 0.8 mg qhs as needed over the next 2 weeks for progressive LUTS Followup: Return to clinic with Alissa in December documented in this encounter Plan of Treatment Scheduled Orders Name Type Priority Associated Diagnoses Order S chedule PSA (Ultrasensitive) Lab Routine Malignant neoplasm o f Expected: 12/15/2021 prostate (Approximate), Expires: 06/16/2022 Testosterone, total Lab Routine Malignant neoplasm of Expected: 12/15/2021 prostate (Approximate), Expires: 06/16/2022 documented as of this encounter Visit Diagnoses Diagnosis Malignant neoplasm of prostate documented in this encounter Care Teams Audit Tech Relationship Specialty Start Date End Date Janusz Reddy MD PCP - General General Internal Medicine 04/28/[address] [place] [address] documented as of this encounter
--- OUTSIDE RECORDS SUMMARY | 2021-12-27 18:57 | XMS_ITS | Encounter Summary ---
:1945 Author Organization [facility] [place] [address] Care Team Providers Name Role Phone Janusz Reddy MD Primary Care Provider [phone] Encounter Details Date Type Department Care Team Description 12/25/2021 Office Visit Radiation Oncology at Edgard Moses M alignant neoplasm of [facility] prostate [address] [place], [place] RADIATION ONCOL OGY [address] [place], [place] [phone] (Wo rk) Social History Tobacco Use Types [...] 6.4 oz) 12/25/2021 8:26 AM EDT Height - - Body Mass Index 29.76 10/01/2021 9:47 AM EDT documented in this encounter Progress Notes Edgard Moses MD - 12/25/2021 8:30 AM EDT Images from the original note were not included. RADIATION ONCOLOGY - End of Treatment Visit Note 12/25/21 EDGARD MOSES MD Radiation Oncology [facility] [phone] (paging eyelet punch operator) Pager #[phone] PATIENT IDENTIFICATION Name Laurent Alexandra Date of 1945 PCP Janusz Reddy MD Referring MD (if different) Bhargavi Figueroa @ [place] Diagnosis High-Risk Prostate Cancer (Gl 8, PSA [...] / 58.8Gy / 50.4Gy in 28 fractions Completion Date 10/19/21 INTERVAL HISTORY General Overall feels fair. Notes a right scrotal bulge but no pain. He has h/o hernia s/p repair. GI Diarrhea has resolved. Nocturia 3-4 x/nt at baseline, was 5x/nt at end of RT, now down to 2x/nt. Taking Flomax 0.4mg qhs. Baseline IPSS history is listed below. Pain: Pain score today is 0/10. Prostate Today's Scores 06/19/2021 08/19/2021 Sexual Health Inventory for Men 2 (Severe ED) - International Prostate Symptom Score 18 (Moderate LUTS) 18 (Moderate LUTS) MEDICATIONS Medications 12/25/21 0834 Medication Sig Taking? calcium-vitamin D 500 mg-5 mcg (200 unit) Tablet Take 1 tablet by mouth 2 times daily (with meals). Yes lisinopriL (Zestril) 10 mg Tablet 0.5 tablets 2 times daily. Yes hydrOXYzine (Atarax) 25 mg Tablet nightly as needed. Yes naltrexone (Depade) 50 mg Tablet daily as needed. To help to abstain from alcohol Yes carboxymethylcellulose (REFRESH PLUS) 0.5 % Dropperette Apply 1 drop to eye 4 times daily as needed.Yes atorvastatin (LIPITOR) 40 mg Tablet Take 40 mg by mouth daily. Yes tamsulosin (Flomax) 0.4 mg Capsule Take 1 capsule by mouth nightly for 240 days. metoprolol succinate (TOPROL-XL) 50 mg Tablet Sustained Release 24 hr Take 1 tablet by mouth 2 timesdaily. Patient not taking: No sig reported IMAGING / LABS 12/17/21 Test 8.1 ng/dl (LLN 240) PSA 0.02 ng/ml EXAM: BP 139/75 (Patient Position: Sitting) Pulse 71 Temp 36.1 ??C (96.9 ??F) (Temporal) Resp 16 Wt 94.1 kg (207 lb 6.4 oz) SpO2 99% BMI 29.76 kg/m?? Constitutional: he appears well-developed and well-nourished. No distress. : right inguinal hernia. Nontender, soft. Performance Status: KPS Score ECOG Grade Definition [...] bed or chair IMPRESSION/PLAN Tolerance to radiotherapy/ADT: Tolerated as anticipated. Excellent biochemical response. Lupron due today. Hernia Reviewed s/s of emergency Rec he contact PCP at [place] (Dr Garcia) to arrange for surgery consultation LUTS: Rec cont flomax to 0.4mg qhs PRN Followup: Return to clinic 3 months for Lupron, will check labs prior documented in this encounter Plan of Treatment Scheduled Orders Name Type Priority Associated Diagnoses Order S chedule PSA (Ultrasensitive) Lab Routine Malignant neoplasm o f Expected: 03/27/2022 prostate (Approximate), Expires: 09/26/2022 Testosterone, total Lab Routine Malignant neoplasm of Expected: 03/27/2022 prostate (Approximate), Expires: 09/26/2022 documented as of this encounter Visit Diagnoses Diagnosis Malignant neoplasm of prostate documented in this encounter Care Teams Respite Worker Relationship Specialty Start Date End Date Janusz Reddy MD PCP - General General Internal Medicine 04/28/[address] [place] [address] documented as of this encounter
--- OUTSIDE RECORDS SUMMARY | 2021-12-27 18:57 | XMS_ITS | Encounter Summary ---
:1945 Author Organization [facility] [place] [address] Care Team Providers Name Role Phone Janusz Reddy MD Primary Care Provider [phone] Encounter Details Date Type Department Care Team Description 09/08/2021 [facility] [address] [phone] Social History Tobacco Use Types [...] documented as of this encounter Progress Notes Krysta Benton RN - 09/08/2021 9:39 AM EDT Radiation Oncology Nurse Note [facility]- [place], [place] Patient recently came to clinic for Lupron injection with empty bottle [facility] Fl[facility] He asked for refill. Our nurse practitioner, Rina Suazo agreed to do this. It was sent electronically today and this clinic note was faxed to the [place] pharmacy. Plan: He will start radiation treatments for prostate ca on 09/10/21. documented in this encounter Plan of Treatment Not on filedocumented as of this encounter Visit Diagnoses Not on filedocumented in this encounter Care Teams Cloth Hand Relationship Specialty Start Date End Date Janusz Reddy MD PCP - General General Internal Medicine 04/28/[address] [place] [address] documented as of this encounter
--- OUTSIDE RECORDS SUMMARY | 2021-12-27 18:57 | XMS_ITS | Encounter Summary ---
:1945 Author Organization [facility] [place] [address] Care Team Providers Name Role Phone Janusz Reddy MD Primary Care Provider [phone] Encounter Details Date Type Department Care Team Description 09/18/2021 Office Visit Radiation Oncology at [place], Reyna Jang alignant neoplasm of [address] [address] RADIATION ONCOLOGY [phone] [place] [id number] Social History Tobacco Use Types Packs/Day Years [...] place to sleep or slept in a [facility] (including now)? Sex Assigned at Date Recorded Not on file documented as of this encounter Last Filed Vital Signs Vital Sign Reading Time Taken Comments Blood Pressure 97/50 09/18/2021 11:52 AM EDT Pulse 77 09/18/2021 11:52 AM EDT Temperature 36.4 ??C (97.5 ??F) 09/18/2021 11:00 AM EDT Respiratory Rate 20 09/18/2021 11:00 AM EDT Oxygen Saturation 96% 09/18/2021 11:00 AM EDT Inhaled Oxygen Concentration - - Weight 92 kg (202 lb 12.8 oz) 09/18/2021 11:00 AM EDT Height - - Body Mass Index 28.69 08/06/2021 12:08 PM EST documented in this encounter Patient Instructions Patient InstructionsHarWyatt garcia MD - 09/18/2021 12:38 PM EDT Regarding your bowel movements, in the weeks ahead there may be a tendency for the bowels to loosen. To help prevent this, we suggest the following: (1) Please begin a daily probiotic. These may be found over the counter. We don't recommend any one in particular, though best to use a product from a reputable dispatcher tow truck. (2) Generally, a lower fiber diet helps slow the stools. Please review attached recommendations. (3) Once you are cutting back on fiber in your diet, please begin daily metamucil, one teaspoon, powdered form, in water or juice at breakfast. For your bone health, please begin calcium 600 mg twice daily with meals. Also, please take Vitamin D 400-800 IUs daily. These may be found as a combination tablet, if you wish. Also, we will set up a DEXA scan shortly, to double-check your bone density. Please call with any questions or concerns at any time. documented in this encounter Progress Notes Wyatt Lee MD - 09/18/2021 11:30 AM EDT ON TREATMENT VISIT NOTE Laurent Alexandra is a 75 y.o. 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 First Lupron (7.5 mg) was 07/09/21. Most recent lupron (7.5 mg) was 09/03/21. Current Treatment Dose: 1750cGy Anticipated Total Dose: 7000cGy Current number of RT Tx Received: 7 Anticipated total number of RT Treatments: 28 Concomitant Therapy: ADT (completed 2 weeks of bicalutamide and is currently receiving Lupron monthly) Evaluation of Port Verification Films: approved (See details in ARIA) Changes in Medical Condition: Resumed Flomax last night. Holland slightly light-headed when rising from the treatment table today, but otherwise no troubles with unsteadiness or lightheadedness. He continues on metoprolol and other antihypertensives. Nocturia is worse than last week, about 4-5x per night. Slight burning with urination, which is new,but no blood with urination. Bowel movements are about 3 a day, with one formed, but two watery and loose. No blood. No constipation. Hot flashes about 5-6 over 24 hour period. [...] Take 40 mg by mouth daily. Yes Physical Examination: Vitals: 09/18/21 1100 09/18/21 1152 BP: 98/48 97/50 Patient Position: Sitting Standing Pulse: 73 77 Resp: 20 Temp: 36.4 ??C (97.5 ??F) SpO2: 96% Weight: 92 kg (202 lb 12.8 oz) KPS: 80 Response to Treatment: Early proctitis. Recommendation on Continuing Course of Therapy and Plan: Next Lupron on or after 10/01/21. Reviewed bowel recs, including low3-fiber diet, daily metamucil, and daily probiotic. Advised to start calcium 600 mg BID with meals along with Vit D 400-800 IUs daily. Will check DEXA. Continue XRT. documented in this encounter Plan of Treatment Scheduled Orders Name Type Priority Associated Diagnoses Order S chedule DXA Central Spine, Imaging Routine Malignant neoplasm of Expected: 09/18/2021, Hip, and/or Whole Body prostate Expir es: 03/20/2022 (Generic) documented as of this encounter Visit Diagnoses Diagnosis Malignant neoplasm of prostate documented in this encounter Care Teams Measurement Superintendent Relationship Specialty Start Date End Date Janusz Reddy MD PCP - General General Internal Medicine 04/28/[address] [place] [id number] documented as of this encounter
--- OUTSIDE RECORDS SUMMARY | 2021-12-27 18:57 | XMS_ITS | Encounter Summary ---
:1945 Author Organization [facility] [place] [address] Care Team Providers Name Role Phone Janusz Reddy MD Primary Care Provider [phone] Encounter Details Date Type Department Care Team Description 10/08/2021 Office Visit Radiation Oncology at [facility] M alignant neoplasm of [facility] prostate [address] [place], [place] RADIATION ONCOL OGY [address] [place], [place] [phone] (Wo rk) Social History Tobacco Use Types [...] place to sleep or slept in a [place] [facility] (including now)? Sex Assigned at Date Recorded Not on file documented as of this encounter Last Filed Vital Signs Vital Sign Reading Time Taken Comments Blood Pressure 133/67 10/08/2021 9:00 AM EDT Pulse 73 10/08/2021 9:00 AM EDT Temperature 36.9 ??C (98.4 ??F) 10/08/2021 9:00 AM EDT Respiratory Rate 18 10/08/2021 9:00 AM EDT Oxygen Saturation 100% 10/08/2021 9:00 AM EDT Inhaled Oxygen Concentration - - Weight 94.3 kg (207 lb 12.8 oz) 10/08/2021 9:00 AM EDT Height - - Body Mass Index 29.82 10/01/2021 9:47 AM EDT documented in this encounter Progress Notes Edgard Msoes MD - 10/08/2021 9:45 AM EDT Images from the original note were not included. RADIATION ONCOLOGY - Weekly On Treatment Visit Note 10/08/21 EDGARD MOSES MD Radiation Oncology [facility] [phone] (paging band aid machine operator) Pager #[phone] PATIENT IDENTIFICATION Name Laurent Alexandra Date of 1945 PCP Janusz Reddy MD Referring MD (if different) Bhargavi Figueroa @ [place] Diagnosis High-Risk Prostate Cancer (Gl 8, PSA [...] / 50.4Gy in 28 fractions Current Dose: 52.5 Gy in 21 fractions INTERVAL HISTORY General Overall feels fair. GI Taking 1 Imodium qod which has resolved his diarrhea. Nocturia 3-4 x/nt per baseline. Taking Flomax 0.4mg qhs. Also notes stable, mild intermittent dysuria rated 3/10. Not taking Aleve. Baseline IPSS history is listed below. Pain: Pain score today is 0/10. Prostate Today's Scores 06/19/2021 08/19/2021 Sexual Health Inventory for Men 2 (Severe ED) - International Prostate Symptom Score 18 (Moderate LUTS) 18 (Moderate LUTS) MEDICATIONS Medications 10/08/21 0974 Medication Sig Taking? calcium-vitamin D 500 mg-5 [...] Diarrhea. Maximum 16 mg in 24 hours IMAGING I have personally reviewed this patient's interval portal imaging to confirm accurate positioning and alignment which matches the patient's original approved treatment planning images. EXAM: BP 133/67 Pulse 73 Temp 36.9 ??C (98.4 ??F) Resp 18 Wt 94.3 kg (207 lb 12.8 oz) SpO2 100% BMI 29.82 kg/m?? Constitutional: he appears well-developed and well-nourished. [...] radiotherapy/ADT: Tolerating as anticipated. Continue as planned. Next Lupron due in December. LUTS: Rec cont flomax to 0.4mg qhs Followup: Return to clinic next week for on treatment check. documented in this encounter Plan of Treatment Not on filedocumented as of this encounter Visit Diagnoses Diagnosis Malignant neoplasm of prostate documented in this encounter Care Teams Structural Shop Helper Relationship Specialty Start Date End Date Janusz Reddy MD PCP - General General Internal Medicine 04/28/10 [address] [place] [address] documented as of this encounter
--- OUTSIDE RECORDS SUMMARY | 2021-12-27 18:58 | XMS_ITS | Encounter Summary ---
:1945 Author Organization [facility] [place] [address] Care Team Providers Name Role Phone Janusz Reddy MD Primary Care Provider [phone] Encounter Details Date Type Department Care Team Description 08/19/2021 Procedure visit Radiation Oncology [facility] M alignant neoplasm at [facility] of prostate [address] [place], [place] RADIATION ONCOL OGY [address] [place], [place] [phone] Social History Tobacco Use Types Packs/Day Years [...] place to sleep or slept in a alf (including now)? Sex Assigned at Date Recorded Not on file documented as of this encounter Last Filed Vital Signs Vital Sign Reading Time Taken Comments Blood Pressure 130/60 08/19/2021 10:10 AM EDT Pulse 70 08/19/2021 10:10 AM EDT Temperature 36.5 ??C (97.7 ??F) 08/19/2021 8:14 AM EDT Respiratory Rate 20 08/19/2021 10:10 AM EDT Oxygen Saturation 100% 08/19/2021 10:10 AM EDT Inhaled Oxygen Concentration - - Weight - - Height - - Body Mass Index - - documented in this encounter Patient Instructions Patient InstructionsSchKrysta castellon RN - 08/19/2021 10:27 AM EDT AFTER THE GOLD COIL PROCEDURE: You may resume normal activity ( no bike riding, horse back riding, snowmobiling, or ATV riding for a couple days to avoid discomfort) You may resume sexual activity in 1 week. You may take extra-strength or regular Tylenol for any discomfort. Start dexamethasone as directed. 1 pill twice a day for 3 days, then 1 pill once a day for 3 days. Always take this medication with food. Avoid taking too late in the evening as it may causes insomnia.It may cause temporary elevation of blood sugar for diabetic patients. You abel resume any NSAIDs 48 hours after the procedure. Call us if you notice any unusual swelling ,difficulty with urination, pain or if you have any otherconcerns. Future Appointments: MRI : You will receive separate instructions specifically from the hospital concerning your exact arrival time and what you need to do to prepare for this. Date: 3/22 Your planning session (simulation) will be done at : [facility] [place], [place] [Date: 08/26 ] [Time:arrive at 0930 ] For proper visualization of prostate, it is required that you have a moderately full bladder. This will require you to arrive 30 minutes before scheduled appointment and drink 2 glasses of water upon arrival. There are no restrictions with eating. How to reach us: [facility] [phone] For weekends and after hours: Call [facility] ask for the fashion model radiation oncologist documented in this encounter Progress Notes Krysta Benton RN - 08/19/2021 8:30 AM EDT Radiation Oncology Procedure Nursing Note Procedure: Prostate fiducial implant by Dr Edgard Moses Time of patient arrival to clinic:0800 See flowsheet for all vital signs and medication list updated info. Pre procedure questions: [ yes ] If Applicable: He confirms taking lorazepam 1mg po at (time): 0730 He comes to clinic accompanied by a truck driver flatbed. [ yes ] reviewed allergies. Specifically confirmed that he is not allergic to contrast dye. ( for Space Oar w/contrast) [ yes ] if Applicable: He confirms holding blood thinner as directed. [ yes ] He confirms taking Levaquin( antibiotic) this morning at , Time: 0730 [yes ] He administered fleets enema as directed; last night and this AM, with good results. [ yes ] He confirms eating breakfast or at least a small meal prior to procedure to avoid low blood sugar. Patient states all his questions are answered and he is ready to proceed. Procedure Time out/start time: See Time out flow sheet for details.. Time procedure ended:~09:40 Vitals: 08/19/21 0814 08/19/21 0954 08/19/21 1010 BP: 139/63 118/65 130/60 Patient Position: Sitting Lying Sitting Pulse: 72 73 70 Resp: 16 18 20 Temp: 36.5 ??C (97.7 ??F) SpO2: 100% 98% 100% See flow sheet or click on expand all in this progress note for vitals. After procedure,he was assisted to stretcher and transported to stretcher/emergency equipment bay for further monitoring. Time: 10:00 assisted to recliner. He denied lightheadedness. He asked to go to toilet. He amb to nearest facility with 1 nurse supervision. Gait steady. He states he voided pink urine. Returned to recliner. Vitals stable. Time: 10:15 dressed self with supervision( he had incontinence on oliverio gown) Gait steady. >> See AVS for printed instructions which were reviewed with him. He has the [facility] phone number and verbalized understanding to ask for the fashion model radiation oncologist if he needs to call after clinic hours. [ yes ] If applicable: He was reminded to not drive home due to Lorazepam. Bullet Swaging Machine Operator: Avi fan Time of discharge: 11:00 vital signs stable,and gait steady. Edgard Moses MD - 08/19/2021 8:30 AM EDT Images from the original note were not included. Identification and Indications: Laurent Alexandra is a 76 y.o. gentleman with high-risk prostate cancer who presents today for the procedures listed below: Procedures and Rationale: 1. Gold coil fiducial marker placement in prostate for daily image guided localization. 2. SpaceOAR hydrogel injection between rectal wall and prostate gland to reduce rectal irradiation during radiation therapy. SpaceOAR is an absorbable polyethylene glycol (PEG) hydrogel (SpaceOAR) thatwas placed into perirectal fat space, thereby pushing the rectum away from the prostate. Physician(s): Edgard Moses MD, MS Anesthesia: Local lidocaine (2%) Description of Procedure: Laurent Alexandra was placed in the lithotomy position with EMLA cream applied to the perineal skin.After a time-our was performed, a transrectal ultrasound probe was then placed within the rectum andstabilized using the placement positioning system. The perineum was prepped and draped. Lidocaine was then used to anesthetize SQ tissues and a needle was placed trans- perineally into the right lobe of the prostate under ultrasound guidance with the graticule serving for stabilization andposition verification. The ultrasound was used to monitor the advancement of the needle, and lidocaine was locally applied as the needle was advanced towards the apex of the prostate. Once it was properly positioned, two 5mm gold coils ([employer]) were separately placed within the right lobe, and the needle was removed. This procedure was repeated within the left prostate. Prior to SpaceOARneedle insertion, an axial measurement of the space between the prostate (mid gland) and rectum was noted. The perirectal fat was infiltrated by either normal prostate tissue or tumor as seen on corporate sales representative axial imaging below. Posterior pressure was applied to the probe, although the loss of fat signal in this region did not change. Therefore, the remainder of the SpaceOAR implantation process was aborted, consistent with upholstery tech guidelines. Complications: none Estimated Blood Loss: minimal Disposition: Laurent Alexandra tolerated the treatment well. He will return shortly for MRI imaging and for CT-based simulation and treatment planning, with radiation therapy to proceed thereafter. documented in this encounter Plan of Treatment Not on filedocumented as of this encounter Visit Diagnoses Diagnosis Malignant neoplasm of prostate documented in this encounter Care Teams Manager Urgent Care Relationship Specialty Start Date End Date Janusz Reddy MD PCP - General General Internal Medicine 04/28/[address] [place] [id number] documented as of this encounter
--- OUTSIDE RECORDS SUMMARY | 2021-12-27 18:58 | XMS_ITS | Encounter Summary ---
:1945 Author Organization [facility] [place] [address] Care Team Providers Name Role Phone Janusz Reddy MD Primary Care Provider Reason for Referral Consultation (Routine) - Closed Specialty Diagnoses / Procedures Referred By Contact Refer red To Contact Radiation Oncology Diagnoses Malignant neoplasm of prostate Edgard Moses MD [facility] Rad Onc Office Procedures Simulation for Radiation Therapy Planning [address] [place] [address] [place] [id number] Referral ID Status Reason Start Date Expiration Date Visits V isits Requested Authorized [id number] Closed Consult, 04/10/2021 12/16/2021 29 29 Test & Treat iagnostic Test (Routine) - Closed Specialty Diagnoses / Procedures Referred By Contact Refer red To Contact Radiology Diagnoses Malignant neoplasm of prostate Edgard Moses MD [facility] Rad Mri Procedures MRI Pelvis wo (Prostate) [address] [place] [address] [place] [address] [place], [place] [address] Referral ID Status Reason Start Date Expiration Date Visits V isits Requested Authorized [id number] Closed Specialty 04/10/2021 10/07/2021 1 1 Service Requested Reason for Visit Consultation (Routine) - Closed Specialty Diagnoses / Procedures Referred By Contact Refer red To Contact Radiation Oncology Diagnoses PROSTATE CA Bhargavi Figueroa PA Kapadia, Nirav S, MD Procedures PROSTATE CA [address] NILDA ANDINO, [place] [address] [place] [address] Phone: Fax: Referral ID Status Reason Start Date Expiration Date Visits V isits Requested Authorized [id number] Closed Consult, Test 04/10/2021 10/07/2021 99 99 & Treat PCP Updated and/or Approved Encounter Details Date Type Department Care Team Description 06/19/2021 Office Visit Radiation Oncology at Edgard Moses M [facility] [address] [place], [place] RADIATION ONCOL OGY [address] [place], [place] [phone] (Wo rk) Social History Tobacco Use Types [...] Sign Reading Time Taken Comments Blood Pressure 116/59 06/19/2021 8:00 AM EST Pulse 66 06/19/2021 8:00 AM EST Temperature 36.6 ??C (97.8 ??F) 06/19/2021 8:00 AM EST Respiratory Rate 20 06/19/2021 8:00 AM EST Oxygen Saturation 99% 06/19/2021 8:00 AM EST Inhaled Oxygen Concentration - - Weight 86.8 kg (191 lb 6.4 oz) 06/19/2021 8:00 AM EST Height - - Body Mass Index 27.46 05/01/2019 9:24 PM EST documented in this encounter Patient Instructions Patient InstructionsEdgard Moses MD - 06/19/2021 9:00 AM EST Dear Bhargavi Lopez at [facility] asked for me to see you to discuss how radiation therapy can be used to treat your prostate cancer and this note is to recap our discussion regarding use of radiation treatments. As your radiation oncologist, I work closely with your other healthcare providers and most importantly, with you to make sure that the treatments we discuss and offer keep your personal preferences and goals in mind. We discussed the following next steps as part of your cancer evaluation and/or treatment: 1. The aggressiveness of your prostate cancer: You technically have favorable high risk prostate cancer, which is a risk given to your cancer of coming back after treatment. This is based on three things 1. Your PSA (the blood test) was 13. PSA values below 10 are considered low risk and 10-20 are considered medium risk and above 20 are considered high risk. 2. Your highest Fulton score was 8 (this is how aggressive your prostate cancer looks under the microscope). Mohamud scores for cancer range from 6-10, and 6 is considered lowest risk, while scores of8-10 are considered higher risk. 3. How aggressive your prostate cancer felt on the prostate exam (through the rectum) and how aggressive it appeared on the MRI, which showed a nodule on the left side of the prostate. The decision to treat prostate cancer is based on both the risk that the cancer can kill you and your general overall health. I agree with Bhargavi's recommendation that this should be treated since we would otherwise expect you to live a normal length of life. 2. Radiation Treatment Options: Radiation for your prostate cancer can be done in 5.5 weeks with external beam radiation alone. You are not a candidate for seed implant radiation based on the location of the tumor at the edge of your prostate gland. Another option is 5 treatments of radiation alone (called SBRT) however this is a relatively newer form of treatment and while safe, we have less understanding of how effective it is over time. 3. Fiducial marker and SpaceOAR gel implants: If you decide to choose external beam radiation, the first step will be for you to return to our clinic so that we can place small gold markers (called fiducials) into the prostate, which help us visualize the prostate on a daily basis prior to treating you with radiation. These small gold seeds are about the size of a grain of rice, and we will place oneinto each side of the prostate. At the same time I will also implant a gel called SpaceOAR, which involves an injection of the gel into the space between the prostate and rectum, to decrease the amount of radiation that goes to the rectum. Some early data suggests it may be helpful in reducing radiation injury to the rectum. These procedures will be performed here in our clinic, and our nursing team will provide you instructions with how to prepare yourself. It takes approximately 2 hours from when you arrive to when you leave the building. 4. Radiation Therapy and Planning: Radiation therapy involves using high energy radiation which kills cancer but also normal healthy tissues. In order to make sure the radiation goes to the cancerous tissues and to also avoid radiating the normal tissues, we design radiation beams beams into special shapes which come from various different directions. Because no two people and no two cancers are completely identical, the radiation plan we create for you will be unique to you and your body. In order to figure out how many beams to use, how much radiation to give, which angles they should come from, and how they should be shaped, we have asked you to undergo 2 mapping scans: one is done here in our department known as a CT simulation, or CT sim, for short. This is essentially a CAT-scan similar to scans which you may have received before, but slightly different in a few ways: First, it allows usto place you in the exact same position which you should expect to be placed during each of your radiation treatment sessions. Second, it lets us better understand where the radiation targets and the normal tissues that we want to avoid exist, in relation to each other and the radiation beams. The second scan is a prostate MRI which will show us the position of the markers and improve our ability to see your prostate. Following these scans, we then perform additional calculations and measurements to create the absolute best plan possible for you. Depending on the complexity of the plan, these processes can take fromjust few hours to several days, and for that we ask for your patience. If you have any questions about the planning process or your custom radiation plan, I would be more than happy to review the plan with you during your first week of treatment. I anticipate you would receive 28 treatments total, daily Tuesday-Tuesday. Your start date and time would be provided once the simulation scan is completed. During your radiation treatments, you can expect to see me once per week so that I can examine you to make sure you are tolerating radiation treatments and so that we can monitor your response to treatment. 5. SIDE EFFECTS - Short Term: We discussed some common temporary side effects that you may experience during radiation. Common side effects may include irritative symptoms of the bladder or prostate, which can result in more frequent urination or defecation. Other common side effects mahy include weake david urinary stream or burning with urination. If you experience any of these, please let us know so that we can help to treat them. These typically resolve within 4-6 weeks of completion radiation. 6. SIDE EFFECTS - Mcfp: These can include be permanent damage of the radiated tissues, including the rectum/bowel, bladder, prostate and surrounding tissues. Potential serious injury is rare, but can include poor wound healing, bleeding, or destruction of healthy tissue that may require surgery to repair and may result in a colostomy (bag for defecation) or urostomy (bag for urination). There may be a slow, mcfp decrease in your sexual function as well, which is partly due to the aging process but also partly due to radiation side effects. This is typically responsive to medications like Viagra. Finally, there is a risk that radiation to your prostate increases the chance of getting another cancer caused by radiation, possibly of the prostate, bladder, rectum or surrounding tissues. This risk is overall quite low (approximately 1% above your normal risk for each 10 years you are alive), but is something to be aware of. 7. Hormone therapy: For high risk prostate cancers such as yours, I recommend a course of anti-testosterone therapy for at least 6 months and if you can tolerate, 18 months (typically starting 2 monthsbefore radiation, contiuing for 2 months during radiation and ongoing after radiation is completed).This is usually given as a shot that lasts for 3 months at a time. The reason we recommend this is that the male hormone testosterone is used by prostate cancer as a fuel. By decreasing the body's production of testosterone, we can 'starve' the prostate cancer. The main side effects of hormone therapyinclude hot flashes, night sweats, weight gain, depressed mood, loss of sexual interest and impotence. There is also a very low risk of heart attack among men who have recently had a heart attack. These side effects usually reverse within 3-6 months of stopping the hormone therapy when testosterone recovers, although it can take up to a full year. During your radiation treatments we would also give you a pill to take once a day called Casodex (bicaluatamide) that blocks the effect of testosterone inthe body. You should start taking this on the same day as your first injection of anti-testosterone shot (today, if you like.) Please do not hesitate to call me at [phone] with any other questions or concerns you have. If I am not here, one of our radiation oncology nurses can assist you or help you get in touch with me. A Radiation Oncology doctor is also media monitor after our normal hours and on weekends for urgent questions or concerns related to radiation treatments that can not wait until normal business hours. To reach the on-call doctor after-hours, just call and have the word processing operator page the Radiation Oncologist media monitor. And, as always, if you experience any life-threatening emergencies which any include the following, you need to seek emergency care immediately by calling 911: 1. Sudden and unexpected breathing difficulty without any exertion 2. Sudden onset of chest pain 3. Sudden onset of severe pain or uncontrolled pain 4. Sudden onset of severe weakness and/or unable to walk 5. Sudden new onset of a seizure 6. Fall resulting in injury 7. Uncontrollable bleeding Edgard Gibbons MD, MS Radiation Oncology [facility] documented in this encounter Progress Notes Edgard Moses MD - 06/19/2021 9:00 AM EST Images from the original note were not included. Radiation Oncology Prostate Cancer Consult Note Edgard Moses MD, MS [facility] [phone] PATIENT IDENTIFICATION: PATIENT NAME: Laurent Alexandra DATE OF : 1945 REFERRING PROVIDER: Janusz Reddy MD [address] [place] [address] REASON FOR CONSULTATION : Cancer Staging Malignant neoplasm of prostate Staging form: Prostate, AJCC 8th Edition - Clinical: Stage IIC (cT2b, cN0, cM0, PSA: 13.2, Grade Group: 4) - Signed by Edgard Moses MD on 06/17/2021 HISTORY OF PRESENT ILLNESS: Laurent Alexandra is a 75 y.o. male recently diagnosed with a favorable high- risk prostate cancer. Presenting Symptoms / Duration: ePSA Prior consultations / recommendations: 04/09/21 Bhargavi Figueroa - [facility] - Gl8 T2b prostate cancer. Daughter/pt both thought he would be candidate for RALP. CC to urology and rad/onc placed. Bone scan ordered. (Urology consult is pending.) PSA History: Pathology Results / Location: 03/26/21 - TRUS bx - Gl 4+4 x 4 cores (all on left including 2 of 2 MRI guided samples) Pertinent Imaging Studies: 01/21/21 - mpMRI - 58cc gland size PIRADS 4 post/medial left mid PZ - 38% risk of microECE - no SVI - no LAD Arrows are my own: 03/26/21 - TRUS - 53cc gland size 05/08/21 - Bone scan - No metatases Laurent is here today to discuss radiation therapy for treatment of his recently diagnosed prostate cancer. Today he states that he had a recent surgery at the [facility]. From the sound of it, he had an operation toreduce a hydrocele. REVIEW OF SYSTEMS: REVIEW OF SYSTEMS 06/19/2021 Eyes None of the above Respiratory Don't know Neurological None of the above Hematologic / Lymphatic Easy bruising or bleeding Most recent colonoscopy was 2019. A comprehensive 14 point review of systems was conducted with this patient and is otherwise negativeexcept as documented above. Baseline HILL and IPSS are as below: Prostate Scores and Responses 06/19/2021 Confidence, level - past 6 months Low Penetration - past 6 months No sexual activity Penetration, maintain - past 6 months Did not attempt intercourse Erection, maintain - past 6 months Did not attempt intercourse Sexual satisfaction - past 6 months Did not attempt intercourse Sexual Health in Men 2 (SEVERE ED) Incomplete emptying Less than half the time Frequency About half the time Intermittency About half the time Urgency Less than half the time Weak Stream About half the time Straining Less than half the time Nocturia 3 times Quality of life Mostly dissatisfied Total IPSS Score 18 (MODERATE LUTS) EPIC-PC Responses 06/19/2021 Urinary Incontinence Symptom Score 0 Urinary Irritation/Obstructive Symptom Score 0 Bowel Symptom Score 0 Vitality/Hormonal Symptom Score 0 Overall Prostate Cancer QOL Score 0 Urinary function problem Moderate problem Ability to reach orgasm Fair Quality of your erections Not firm enough for any sexual activity Problem with sexual function or lack of it Moderate problem PAST MEDICAL HISTORY Past Medical History: Diagnosis Date ??? CAD (coronary artery disease) ??? Hypertension Past Surgical History: Procedure Laterality Date ??? COLONOSCOPY 2018 at [facility]. had Polyps removed ??? PROSTATE BIOPSY ??? TESTICLE SURGERY Right 06/15/2021 right side was very swollen. had surgery at [facility] CONTRAINDICATIONS TO RADIATION THERAPY: None ?? Prior radiation therapy: No ?? Active Lupus: No ?? Systemic Scleroderma: No MEDICATIONS / ALLERGIES: Medications 06/19/21 0852 Medication Sig Taking? tamsulosin (Flomax) 0.4 mg Capsule 0.4 capsules every morning. Yes lisinopril (PRINIVIL;ZESTRIL) 5 mg Tablet Take 1 tablet by mouth daily. Yes metoprolol succinate (TOPROL-XL) 50 mg Tablet Sustained Release 24 hr Take 1 tablet by mouth 2 timesdaily. Yes carboxymethylcellulose (REFRESH PLUS) 0.5 % Dropperette Apply 1 drop to eye 4 times daily as needed.Yes atorvastatin (LIPITOR) 40 mg Tablet Take 40 mg by mouth daily. Yes naltrexone (Depade) 50 mg Tablet daily. To help to abstain from alcohol Allergies Allergen Reactions ??? Lactose Nausea And Vomiting SOCIAL HISTORY: Cameron: [facility] Living Situation: , lives alone Transit time to [facility]: 10 mins Employment history: Retired from [employer] Smoking: Remote Alcohol 3 beers / day Illicits: Denies FAMILY HISTORY: Family History Problem Relation Age of Onset ??? Prostate Cancer Father ??? Breast Cancer Daughter recieved txs at [facility] PHYSICAL EXAM BP 116/59 Pulse 66 Temp 36.6 ??C (97.8 ??F) Resp 20 Wt 86.8 kg (191 lb 6.4 oz) SpO2 99% BMI 27.46 kg/m?? General: alert, well appearing, and in no distress sitting in exam room alone LAURA: deferred TODAY'S PERFORMANCE STATUS: KPS Score ECOG Grade Definition 90-100 0 Fully active, able to carry on all pre-disease performance without restriction X 70-80 1 Restricted in physically strenuous activity but ambulatory and able to carry out work of alight or sedentary nature, e.g., light house work, [...] selfcare; totally confined to bed or chair ASSESSMENT / PLAN: Laurent Alexandra is a 75 y.o. 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 Today we reviewed the risks, benefits, rationale, implications and alternatives of the various management options. He has a pending surgical consultation at [facility] so we focused our discussion on radiation therapy. Briefly, though, we reviewed his three major options, which include radical prostatectomy, radiation therapy, and active surveillance with delayed curative intent. Active surveillance was not reviewed in detail, given Gl 8 histology. With regard to his radiation options, we reviewed the following: SBRT to the prostate Moderately hypofractionated RT to the prostate +/- pelvis Standard fractionated RT to the prostate + pelvis We reviewed that in general treatment efficacy is similar between radiation therapy and surgery, buthave varying logistic concerns and side effects. With regard to brachytherapy, we discussed the benefit in terms of added PSA control that can be achieved with a brachytherapy boost, but that it comes with added morbidity with - as yet - uncertain benefits in terms of disease-specific survival endpoints. Given his age, baseline LUTS and risk of MARK, brachytherapy was not recommended or discussed in detail. SBRT was reviewed but not recommended as first line therapy given relative lack of oil heaterman experience especially for high risk disease. In the short term, I reviewed the common irritative bowel and bladder side effects associated with all forms of radiotherapy. In the mcfp, I explained there is an approximately 2% chance of serious bladder or rectal toxicity as well as a very low risk of inducing a secondary malignancy. I also reviewed that with radiation there are few reliable salvage curative options. Logistics of external beam treatment were also reviewed, including the role of fiducial marker placement with or without spaceOAR hydrogel placement, simulation, and treatment. I also reviewed the role of at least short-term ADT (6 if not 18 months) and side effects associatedwith this treatment. He understands there is a survival benefit when ADT is added to radiotherapy, and that side effects can include diminished libido, hot flashes, weight gain, mood swings, depressionand/or osteoporosis. Clinical trials were also reviewed briefly. He is not a candidate for any currently open trials at [facility]. On balance, Laurent wishes to proceed with ADT + hypofractionated RT. I offered to wait until a surgical consultation can be scheduled, but he is not inclined towards surgery given his age. He is willing to meet with a surgeon although given delays in scheduling would just as soon prefer to start RT. To that end, informed consent for fiducial marker placement, spaceOAR hydrogel insertion, and radiotherapy were obtained today in clinic. [facility] and when he has the 2 week supply, he will call us to schedule his first Lupron 7.5mg depot injection. All of his questions were answered to his satisfaction, and we have provided him with our contact information should any further questions or concerns arise. SUMMARY OF PLAN / RECOMMENDATION: 1. Intent of therapy: Curative 2. Clinical Trial Availability: No 3. Informed consent obtained for radiotherapy to the prostate, anticipate 28 fractions to be delivered in [facility] 4. RV for standalone Lupron once he receives casodex supply Time Attestation: I certify spending at least 60 minutes in providing care to this patient today, 06/19/21 as reflected by the following activities: - review of his medical record in the chart, including interpretation of imaging, laboratory and pathologic studies referenced above - discussion of the above with the patient as part of shared medical decision making - documenting the outcome of today's visit as above EDGARD MOSES MD, MS Krysta Benton RN - 06/19/2021 9:00 AM EST RADIATION ONCOLOGY NURSING INITIAL NURSING ASSESSMENT IDENTIFICATION: Laurent Alexandra is a 75 y.o. year-old male with prostate ca REVIEW OF SYSTEMS: Review of Systems - Oncology REVIEW OF SYSTEMS 06/19/2021 Eyes None of the above Respiratory Don't know Neurological None of the above Hematologic / Lymphatic Easy bruising or bleeding take daily aspirin causes that: >.brusing. Denies any respiratory concerns. Prostate IPSS and HILL(Pt Entered): Today's answers and scores Prostate Scores and Responses 06/19/2021 Confidence, level - past 6 months Low Penetration - past 6 months No sexual activity Penetration, maintain - past 6 months Did not attempt intercourse Erection, maintain - past 6 months Did not attempt intercourse Sexual satisfaction - past 6 months Did not attempt intercourse Sexual Health in Men 2 (SEVERE ED) Incomplete emptying Less than half the time Frequency About half the time Intermittency About half the time Urgency Less than half the time Weak Stream About half the time Straining Less than half the time Nocturia 3 times Quality of life Mostly dissatisfied Total IPSS Score 18 (MODERATE LUTS) IN THE PAST 12 MONTHS HAVE YOU: Fallen more than one time? No Injured yourself as result of the fall? No Experienced difficulty with walking/problems with balance? No Do you use any assistive devices? No Any history of collagen vascular diseases:No Any Implanted Devices/Hardware: No If yes please put alert in ARIA patient summary Prior Radiotherapy: No Prior Chemotherapy: No Prior Hormone Therapy: No Pt states he received COVID vaccine and Booster Other: Patient denies history of Scleroderma and Lupus LEARNING ASSESSMENT REVIEWED: Yes ADVANCED DIRECTIVE: Not discussed today. PAIN ASSESSMENT: [6] out of 10 *eD-H Adult PCS Flow Sheet if 4 or above SOCIAL ASSESSMENT: See EDH social assessment information entered. Support Systems: lives alone, but grown daughter and son live in the area. 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 RADIATION SPECIFIC TEACHING:Will provide the following information on simulation day [facility] and You Site specific teaching : Other: PLAN: Per Dr Moses documented in this encounter Plan of Treatment Scheduled Orders Name Type Priority Associated Diagnoses Order S chedule Simulation for Procedures Routine Malignant neoplasm of Orde red: 06/19/2021 Radiation Therapy prostate Planning documented as of this encounter Results MRI Pelvis wo (Prostate) (08/25/2021 10:00 AM EDT) Anatomical Region Laterality Modality Pelvis Magnetic Resonance Specimen (Source) Anatomical Location Collection Method / Collectio n Time Received Time / Laterality Volume Impressions 08/25/2021 10:36 AM EDT Posttreatment changes, as above. Thank you for letting us participate in the care of this patient. ??If you are a health care provider and have any questi ons regarding this report, please contact the number below. ??For patients who have questions please contact the health behavioral health care coordinator that requested your imaging first. ? Electronically signed by: Konstantin luna MD[facility] ([phone]), at 08/25/2021 10:36 AM Narrative 08/25/2021 10:36 AM EDT EXAMINATION: MRI PELVIS WO (PROSTATE) CLINICAL HISTORY: prostate cancer s/p AD T, fiducial marker and hydrogel placement. MRI for radiation planning, p lease use volumetric study sequence if possible (e.g. ALBARRAN or the like) TECHNIQUE: MRI of the prostate without contrast. COMPARISON: January 21, 2021 FINDINGS: The prostate gland measures 3.3 x 6 x 5 cm for calculated volume of 51 cc. Interval placement of fiducial markers i n the prostate. No SpaceOAR gel identified. No pelvic lymphadenopathy or osseous metastases detected. Procedure Note Konstantin Trevino MD - 08/25/2021For matting of this note might be different from the original. EXAMINATION: MRI PELVIS WO (PROSTATE) CLINICAL HISTORY: prostate cancer s/p AD T, fiducial marker and hydrogel placement. MRI for radiation planning, p lease use volumetric study sequence if possible (e.g. ALBARRAN or the like) TECHNIQUE: MRI of the prostate without contrast. COMPARISON: January 21, 2021 FINDINGS: The prostate gland measures 3.3 x 6 x 5 cm for calculated volume of 51 cc. Interval placement of fiducial markers i n the prostate. No SpaceOAR gel identified. No pelvic lymphadenopathy or osseous metastases detected. IMPRESSION Posttreatment changes, as above. Thank you for letting us participate in the care of this patient. If you are a health care provider and have any questi ons regarding this report, please contact the number below. For patients w ho have questions please contact the health behavioral health care coordinator that requested your imaging first. Electronically signed by: Konstantin luna MD, [facility] ([phone]), at 08/25/2021 10:36 AM Edgard Moses MD IMG MRI ORDERABLES documented in this encounter Visit Diagnoses Diagnosis Malignant neoplasm of prostate Malignant neoplasm of prostate documented in this encounter Care Teams Assistant Family Teacher Relationship Specialty Start Date End Date Janusz Reddy MD PCP - General General Internal Medicine 04/28/[address] [place] [address] documented as of this encounter
--- OUTSIDE RECORDS SUMMARY | 2021-12-27 18:58 | XMS_ITS | Encounter Summary ---
:1945 Author Organization [facility] [place] [address] Care Team Providers Name Role Phone Janusz Reddy MD Primary Care Provider [phone] Encounter Details Date Type Department Care Team Description 08/20/2021 [facility] [address] [phone] Social History Tobacco Use [...] place to sleep or slept in a long term (including now)? Sex Assigned at Date Recorded Not on file documented as of this encounter Miscellaneous Notes Telephone Encounter - Krysta Benton RN - 08/20/2021 9:20 AM EDT Radiation Oncology Nurse Telephone Note [facility]- [place], [place] Radiation Oncology Post-Procedure Phone Note Name: Laurent Daniel#: [id number] : 1945 Date/Time of Call: 08/20/21 Procedure: Placement of Gold Coil Fiducials ( no spaceOar Sandoval) Date of Procedure: 08/19/21 Spoke on the phone to: Patient If not patient, whom? x Message left on answering machine Call attempted - unable to contact patient General condition as stated by the patient or designee: Excellent Good Fair Poor Other x ??? The patient's pain is controlled:Patient Denies pain YES NO x Comments/intervention: ??? Patient denies tenderness / swelling in perineum/scrotum: YES NO x Comments/intervention: ??? Patient denies changes in urinary symptoms: YES NO x Comments/intervention: ??? Patient has questions re medications: YES NO x Comments/interventions: ??? Patient knows how to contact us in case of emergency: YES NO x Comments/interventions: Section Radiation Oncology [facility] documented in this encounter Plan of Treatment Not on filedocumented as of this encounter Visit Diagnoses Not on filedocumented in this encounter Care Teams Head Start Teacher Relationship Specialty Start Date End Date Janusz Reddy MD PCP - General General Internal Medicine 04/28/[address] [place] [id number] documented as of this encounter
--- OUTSIDE RECORDS SUMMARY | 2021-12-27 18:58 | XMS_ITS | Encounter Summary ---
:1945 Author Organization [facility] [place] [address] Care Team Providers Name Role Phone Janusz Reddy MD Primary Care Provider [phone] Reason for Visit Consultation (Routine) - Closed Specialty Diagnoses / Procedures Referred By Contact Refer red To Contact Radiation Oncology Diagnoses Malignant neoplasm of prostate Edgard Moses MD [facility] Procedures Simulation for Radiation Therapy Planning [address] [place] [address] [place] [id number] Referral ID Status Reason Start Date Expiration Date Visits V isits Requested Authorized [id number] Closed Consult, 04/10/2021 12/16/2021 29 29 Test & Treat Encounter Details Date Type Department Care Team Description 08/26/2021 Ancillary Appointment Rad[facility] Oncology at [facility] [address] [place] [address] RADIATION ONCOL OGY [id number] [place], [place] [phone] [id number] (Wo rk) Social History Tobacco Use Types [...] place to sleep or slept in a care home (including now)? Sex Assigned at Date Recorded Not on file documented as of this encounter Patient Instructions Patient InstructionsKrysta Benton RN - 08/25/2021 12:01 PM EDT General instructions for Radiation therapy Radiation Oncology Team Radiation Oncologist -The doctor who will direct all aspects of your radiation treatments Nurse Practitioner - They assist your doctor in treating your side effects and with follow up appointments. Registered Nurse - They assist you in learning about you radiation treatments, , and things you can do to help manage the side effects. Rrt - They take the doctors radiation prescription and customize it into doses (or days of treatments) specific for you. Physicist - They make sure all the machines are operating correctly and double check calculations for your treatment. Radiation Technologists - They operate the machines which deliver your radiation. You see them dailyand they schedule your treatments. Simulation CT/ Planning Session Your first step after deciding to start radiation treatments is done on a special CAT scanner in theradiation department. The images obtained are used to plan your treatments. This may be scheduled the same day you meet your doctor or in a separate visit. This usually takes between 30 minutes to one hour. You may need an IV for contrast. If so our nurse will let you know that day along with any other special instructions. During this visit we may jasmin Your skin with a tiny ???tattoos?? , take pictures or make special molds or masks to help us place you in the exact treatment position every day. After this session it takes up to two weeks for your plan to be developed and checked by your doctor, the dosimetrists and the physicist. Skin Care - Your nurse will provide you with the necessary creams and supplies as you need them during your treatments. Please make sure you keep the treatment area clean and dry. Be sure to notice if your clothing rubs or digs into the treatment area and try to wear clothes which are less abrasive, like cotton or loose fitting. Do not use harsh soaps, ointments, deodorants or tapes in the treatment area unless directed by your nurse or doctor. Keep the treatment area out of the sun during treatments. General precautions DO NOT USE heating pads, hot water bottles, hot poultices, heat lamps, heat in any form, or ice packs to the area of your body being treated. It is common to start feeling fatigue after a few weeks of being treated. You can help minimize thisby getting regular exercise or walking and getting plenty of rest. In general a well balanced diet is recommended. The three knife trimmer and nurse will inform you of any special diet requirements. Avoid shaving the treatment area with a razor. If you must shave use an electric razor. >>>>Please remember: Do not urinate before your radiation treatment. Try to have a comfortably full bladder if possible. This will help reduce side effects on the longrun. If you have any questions or concerns about these directions,please inform your nurse. >>> >Diarrhea management for patients receiving pelvic radiation: For watery stools: Follow a low roughage, low fiber diet.Also avoid any foods/beverages with high acid content. For example:Tomatoes, citrus and vinegar. Drink plenty of water;8-10 glasses/day Take 1 imodium tablet after each loose watery stool. Do not take more than 8 tabs per day. Notify physician if diarrhea is not relieved after 8 tabs. You will have a weekly on-treatment visit every with Dr Moses after your treatment. Nursing is available daily if needed. Contact numbers Section of Radiation Oncology Our normal business hours are: Tuesday - Tuesday 8 AM to 5 PM [facility] phone# [phone] [facility] If you have questions about your radiation appointments please ask to speak to one of our singeing torch operator staff. If you have questions for a nurse/doctor about radiation treatments, radiation side effects or you are not feeling well it is best to call early in the day. This allows a nurse to return your call by 5PM the same day. If you call after 4 PM, a nurse will return your call by 5 PM the following day unless it is emergent. If you experience any of the following you need to seek emergency care immediately by calling 911 1. Sudden and unexpected breathing difficulty without any exertion 2. Sudden onset of chest pain 3. Sudden onset of severe pain or uncontrolled pain 4. Sudden onset of severe weakness and/or unable to ambulate 5. Sudden new onset of a seizure 6. Fall resulting in injury A Radiation Oncology doctor is transfusion nurse after our normal hours and on weekends. To call for urgent medical issues from radiation treatments that can not wait until normal business hours, please call for either location and have the lathe machine operator page the Radiation Oncologist transfusion nurse. documented in this encounter Progress Notes Katarina Schneider RN - 08/26/2021 10:00 AM EDT Radiation Oncology Simulation Note Laurent Alexandra is here for radiation planning , undergoing a simulation to the pelvis prostate for prostate cancer treatment . Usual radiation oncology routines and purpose of on treatment visits were explained. Anticipatory Guidance: Please see AVS. Barriers to Treatment/ Compliance issues identified: None identified Patient confirms they can have no difficulties lying flat. pre- medication plan made: None needed Referrals: DENTAL PROSTHETIST per routine Edgard Moses MD - 08/26/2021 10:00 AM EDT Simulation Note for External Beam Radiation Treatment Planning [facility] Fernando Alexandra is a 76 y.o. year old male with high risk prostate cancer who was simulated for definitive radiotherapy to the pelvis and prostate today. No changes were made from the plan as documented in the original simulation order and instructions. After confirming informed consent, a retrograde urethrogram was performed using a small amount of contrast dye, and then a 2.5mm slice thickness CT scan of the patient's pelvis was obtained. This scan was performed to delineate both target volumes and organs/structures at risk. These images will be used to create a customized treatment plan employing multileaf collimators and beams-eye view to treat the target to prescription dose while maximally sparing organs at risk, with the overall goal of maximizing the likelihood of a favorable disease response while minimizing the likelihood of any short term side effects or paste plant supervisor complications of therapy. I anticipate his prescription dose will be 70 Gy to the prostate, delivered in daily 2.5 Gy fractions over the course of 5.5 weeks. Anticipate therapy to begin within the next 10 days. Furthermore, I anticipate this patient will require IMRT or VMAT treatment planning and delivery as the critical treatment volume of interest (in this case, pelvic lymphatics, seminal vesicles, and prostate) is/are irregular and in close proximity to sensitive structures which must be protected (including his femurs, bladder, rectum, small bowel, and penile bulb). The patient tolerated this procedure well, and was provided instructions with regard to upcoming appointments. documented in this encounter Plan of Treatment Scheduled Orders Name Type Priority Associated Diagnoses Order S chedule Simulation for Procedures Routine Malignant neoplasm of Orde red: 06/19/2021 Radiation Therapy prostate Planning documented as of this encounter Visit Diagnoses Not on filedocumented in this encounter Care Teams Mobility Scooter Repairer Relationship Specialty Start Date End Date Janusz Reddy MD PCP - General General Internal Medicine 04/28/[address] [place] [id number] documented as of this encounter
--- OUTSIDE RECORDS SUMMARY | 2021-12-27 18:58 | XMS_ITS | Encounter Summary ---
:1945 Author Organization [facility] [place] [address] Care Team Providers Name Role Phone Janusz Reddy MD Primary Care Provider [phone] Encounter Details Date Type Department Care Team Description 07/07/2021 Telephone Radiation Oncology at [facility], Katarina Ruffin RN [address] [phone] Social History Tobacco Use [...] place to sleep or slept in a skilled nursing (including now)? Sex Assigned at Date Recorded Not on file documented as of this encounter Miscellaneous Notes Telephone Encounter - Katarina Schneider RN - 07/07/2021 9:25 AM EST Background: Updated Dr. Moses that patient has received casodex and inquired as to when he should start taking. Dr. Moses advised that patient can start taking today. Telephone call to patient with information above. He states good understanding and does plan to start today. Confirmed with patient his infusion appointment for 07/09/21 at 11:30 for lupron. He is agreeable to this appointment. Telephone Encounter - Katarina Schneider RN - 07/07/2021 9:23 AM EST ----- Message from Marietta Leiva sent at 07/06/2021 1:27 PM EST ----- Regarding: Casodex Brandy Ma called to let us know that he received his casodex supply in the mail today. He is wondering whenhe should start taking it. I have him on for Lupron this at 1130 but I believe he is supposed to have taken it for a few days. Can you please give him a call with instructions on when to starttaking it? Best number to call is [phone]. Also, please let me know if his Lupron injection for 07/09 needs to be adjusted. Thank you, Marietta documented in this encounter Plan of Treatment Not on filedocumented as of this encounter Visit Diagnoses Not on filedocumented in this encounter Care Teams Residential Treatment Counselor Relationship Specialty Start Date End Date Janusz Reddy MD PCP - General General Internal Medicine 04/28/[address] [place] [address] documented as of this encounter
--- OUTSIDE RECORDS SUMMARY | 2021-12-27 18:58 | XMS_ITS | Encounter Summary ---
:1945 Author Organization [facility] [place] [address] Care Team Providers Name Role Phone Janusz Reddy MD Primary Care Provider [phone] Reason for Visit Auth/Cert Specialty Diagnoses / Procedures Referred By Contact Refer red To Contact Diagnoses Unstable angina Angina Procedures ER IPI Admit Referral ID Status Reason Start Date Expiration Date Visits Requ ested Visits Authorized [id number] 1 1 Encounter Details Date Type Department Care Team Description 05/01/2019 - Hospital Encounter Intermediate Cardiac Blessing Kwon MD [facility] [place] [address] Unstable angina 05/03/2019 Care Unit Bong Rg MD [facility] [place] [address] [place] [id number] Social History Tobacco Use Types Packs/Day Years Used Date Former Smoker Cigarettes 15 Quit: 05/01/20 02 Smokeless Tobacco: Never Used Alcohol Use Standard Drinks/Week Comments Yes 0 (1 standard drink = 0.6 oz pure 3 glas ses of whiskey and gingerale alcohol) daily (21 glasses / week) Alcohol Habits Answer Date Recorded How often do you have a drink Not asked containing alcohol? How many drinks containing alcohol Not asked do you have on a typical day when you are drinking? How often do you have six or more Not asked drinks on one occasion? Comment: 3 glasses of whiskey and gingerale 05/01 daily (21 glasses / week) Food Insecurity Answer Date Recorded Within the [...] Sign Reading Time Taken Comments Blood Pressure 127/73 05/03/2019 7:30 AM EST Pulse 69 05/03/2019 7:30 AM EST Temperature 36.4 ??C (97.5 ??F) 05/03/2019 7:30 AM EST Respiratory Rate 16 05/03/2019 7:30 AM EST Oxygen Saturation 99% 05/03/2019 7:30 AM EST Inhaled Oxygen Concentration - - Weight 91.7 kg (202 lb 2.6 oz) 05/03/2019 4:47 AM EST Height 177.8 cm (5' 10) 05/01/2019 9:24 PM EST Body Mass Index 29.01 05/01/2019 9:24 PM EST documented in this encounter Discharge Summaries Lynda Alejo APRN - 05/03/2019 9:16 AM EST Discharge Summary Patient Name: Laurent Alexandra Patient Age: 73 y.o. Language: Prydeinig Race: White Ethnicity: Not nor Admit date: 05/01/2019 Discharge date and time: 05/03/2019 9:49 AM Attending Physician: Bong Mishra MD Discharge Physician: Bong Mishra MD Follow-up Recommendations for Providers: 1. Non obstructive CAD seen on cardiac cath 2. Changed metoprolol xl to 50 mg twice daily 3. Access site is right radial artery 4. Lisinopril 5 mg Inpatient Provider Contact Information: Dr. Bong Rae, STILL OPERATOR HELPERHenry Alejo, STILL OPERATOR HELPER [phone] Discharge Diagnoses (Hospital Problems) and Secondary Diagnoses (Chronic Problems): Active Hospital Problems Diagnosis ??? Unstable angina ??? Essential hypertension ??? CAD (coronary artery disease) Resolved Hospital Problems No resolved problems to display. There are no active non-hospital problems to display for this patient. Operations/Major Procedures: Operations: Procedure(s): CARDIAC CATHETERIZATION 05/02/19 Hemodynamics: ?Left Heart Pressures ?Resting: ?Syst Diast ?EDP ?a ?v ?m ?Ao 117 ?65 ?88 ?LV 117 ?22 ? Coronary Angiography: ?Dominance: Right ?Left Main ?The left main was normal, free of disease. ?Left Anterior Descending ?There was mild diffuse (<=25% stenosis) disease of the entire vessel ?segment of the left anterior descending artery (LAD). ?Left Circumflex ?There was a 30% single discrete stenosis of the ostial segment of ?the left circumflex artery (LCX). ??The LCX was large. ?There was mild diffuse (<=25% stenosis) disease of the proximal ?segment of the first obtuse marginal branch (OM1) of the LCX. ??The ?previously placed stent is patent. ?Right Coronary Artery ?There was mild diffuse (<=25% stenosis) disease of the entire vessel ?segment of the right coronary artery (RCA). ?Ramus ?There was mild diffuse (<=25% stenosis) disease of the entire vessel ?segment of the ramus. ??The ostial segment of the ramus had a single ?discrete 30% stenosis. ? Vascular Access: ?Vascular Access Management: ?Mechanical Compression of the right radial artery access site was ?performed. ? Conclusions: ?* Nonobstructive coronary artery disease ?* Elevated left ventricular end diastolic pressure ?* Patent 17 year old stent in proximal OM1. TTE 05/02/19 SUMMARY: ?? 1. The left ventricular chamber size is normal. Basal septal hypertrophy is observed. There is no evidence of LVOT obstruction. There are left ventricular segmental wall motion abnormalities present, as shown in the diagram below. There is normal global left ventricular systolic function. The quantitative left ventricular ejection fraction by biplane Lance's method is 65%. 2. Right ventricular chamber size, wall thickness, and systolic function are within normal limits. 3. There is no hemodynamically significant valve disease. 4. There is mild dilatation of the aortic root (3.9 cm), There is mild dilatation of the ascending aorta (3.7 cm). 5. See remainder of report for additional findings. ?? History of Presentation: Laurent Alexandra is a 73 y.o. male w/ hx of OM CAD s/p stent in 2001, HTN, and HLD who was [facility]from [facility] due to abnormal stress test. ?? The patient was seen by his primary care physician yesterday for routine visit and he described a month of new exertional chest pain that occurred when he shoveled snow. He describes the pain as discomfort/pressure-like in the middle of the chest with no radiation. He reports associated diaphoresis. He denies any other associated symptoms. He denies any prior similar episodes. States that the pain occurs infrequently with strenuous activity. ?? The patient was sent to [facility] ED for further testing. Per chart review, the PCP noted concerning findings and an EKG done in the outpatient setting which was not sent with the patient's chart. Patient then left AMA and presented to the [facility]. Troponin was noted to be negative x3. EKG stable. ?? An exercise echo stress test was done. It was terminated after 6 minutes due to fatigue. During stress, the patient developed multiple PVCs and then couplets and in the recovery. He developed an episode of monomorphic ventricular tachycardia rate 140 bpm lasting at least 15 seconds and terminated spont aneously. The patient did not have any symptoms in the process. The patient was then transferred here for cardiac cath. ?? Home dose atenolol was DC'd and metoprolol tartrate was started at 12.5 mg every 6 hours. ?? Of note, patient is a daily alcohol drinker. He drinks 3 glasses of whiskey gab yogi daily for many years. He denies any history of alcohol withdrawals. He is a former smoker, quit 20 years ago. ?? On our encounter, the patient was noted to be chest pain-free and NAD. Hospital Course: Chest Pain, known ASCVD, monomorphic VT seen on stress echo at [facility] Given the patient's risk factors and VT seen on stress test, it was decided to proceed with coronaryangiography. The patient went to the cardiac flue dust laborer for a diagnostic cath which showed non obstructive ASCVD with patent bare metal stent from 2001. Access site was via right radial artery and this was clean, dry and intact on day of discharge. Given monomorphic VT seen during stress test at [facility], the patient's beta leo was changed from atenolol to metoprolol xl with this dose titrated up to 50 mg twice daily. He will continue on aspirin and his prior dose of lipitor. Hyperlipidemia Lipid profile showed total cholesterol 97 with LDL 32. Patient has been on atorvastatin 40 mg daily. Hypertension The patient's blood pressure in the 24 hours prior to discharge has been BP: (106-139)/(70-85) . Thepatient continues on lisinopril and the new metoprolol xl dose of 50 mg twice daily. Alcohol use disorder The patient typically has 3 glasses of whiskey/gab yogi daily. He denies difficulty with withdrawal with stopping in the past. No signs of withdrawal during hospitalization. Smoking cessation was advised & discussed.--Quit in 2001 The patient tolerated supervised ambulation in the hallway and up/downstairs with no anginal symptoms. The patient was discharged home in stable condition. Functional and Cognitive Status: Alert and oriented x 3, ambulatory-independent Important Studies and Lab Data: Labs: Lab Results Component Value Date WBC 5.5 05/03/2019 HGB 13.5 (L) 05/03/2019 HCT 41.6 05/03/2019 PLATELET 142 (L) 05/03/2019 No results for input(s): INR in the last 168 hours. Lab Results Component Value Date NA 140 05/03/2019 K 4.4 05/03/2019 CL 104 05/03/2019 CO2 24 05/03/2019 BUN 12 05/03/2019 CREATININE 0.96 05/03/2019 Recent Labs 05/01/19 2245 TSH 1.99 Recent Labs 05/02/19 0410 HA1C 5.9* Recent Labs 05/01/19 2245 TROPONINT <0.01 Lab Results Component Value Date CHLPL 97 05/02/2019 HDL 41 05/02/2019 CHOLHDL 2.4 05/02/2019 TRIG 121 05/02/2019 LDLCHOL 32 05/02/2019 Pending Studies and Lab Data: None Discharge Conditions/Prognosis: Ambulatory without anginal symptoms Discharge to: Home Updated Allergies/ADRs: No Known Allergies Immunizations Given this Hospitalization: There is no immunization history on file for this patient. Discharge Medications: Your Medications New Medications Dose Details lisinopril 5 mg Tab Commonly known as: PRINIVIL;ZESTRIL Take 1 tablet by mouth daily. 5 mg Quantity: 7 tablet Refills: 0 metoprolol succinate 50 mg Tablet sr Commonly known as: TOPROL-XL Take 1 tablet by mouth 2 times daily. 50 mg Quantity: 14 tablet Refills: 0 Continued medications, unchanged Dose Details aspirin 81 mg Chew Take 81 mg by mouth daily. 81 mg Refills: 0 atorvastatin 40 mg Tab Commonly known as: LIPITOR Take 40 mg by mouth daily. 40 mg Refills: 0 carboxymethylcellulose 0.5 % Dpet Commonly known as: REFRESH PLUS Apply 1 drop to eye 4 times daily. 1 drop Refills: 0 STOPPED Medications atenolol 25 mg Tab Commonly known as: TENORMIN Smoking Status at Discharge: Social History Tobacco Use Smoking Status Former Smoker ??? Years: 15.00 ??? Types: Cigarettes ??? Last attempt to quit: 05/01/2002 ??? Years since quittin.0 Smokeless Tobacco Never Used Instructions Given to Patient at Discharge: There are no outpatient Patient Instructions on file for this admission. General Instructions Call your doctor if: Chest pain, shortness of breath, pain or swelling in legs occurs. If you have non-emergent questions between now and the time of your follow up appointments: During 8am-5pm Tuesday through Tuesday call [phone] to speak with a nurse in the cardiology clinic All other times call [phone] and ask to speak to the publishing editor clinical application consultant. Driving: No driving for 48 hours after catheterization. Follow up Appointments: PCP Janusz Reddy MD [phone] Please call tomorrow to make a follow up appointment with your PCP within 7-10 days of discharge. Cardiology You will be contacted by the [facility] cardiology clinic for follow up appointment details. Discharge References/Attachments Ha Alejo APRN Cardiovascular Medicine 05/03/2019 Associated attestation - Bong Mishra MD - 05/03/2019 12:13 PM EST Dear Colleagues, I was the attending at the time of discharge. Please call or email me if you have questions. Bong Mishra MD, DEQUAN Cardiovascular Medicine [phone], option 5 documented in this encounter Discharge Instructions Discharge InstructionsLynda Alejo APRN - 05/03/2019 9:15 AM EST Call your doctor if: Chest pain, shortness of breath, pain or swelling in legs occurs. If you have non-emergent questions between now and the time of your follow up appointments: During 8am-5pm Tuesday through Tuesday call [phone] to speak with a nurse in the cardiology clinic All other times call [phone] and ask to speak to the publishing editor clinical application consultant. Driving: No driving for 48 hours after catheterization. Follow up Appointments: PCP Janusz Reddy MD [phone] Please call tomorrow to make a follow up appointment with your PCP within 7-10 days of discharge. Cardiology You will be contacted by the [facility] cardiology clinic for follow up appointment details. documented in this encounter Medications at Time of Discharge Medication Sig Dispensed Refills Start Date End Date metoprolol succinate Take 1 tablet 14 tablet 0 05/03/2019 (TOPROL-XL) 50 mg Tablet by mouth 2 Sustained Release 24 hr times daily. carboxymethylcellulose (REFRESH Apply 1 drop 0 PLUS) 0.5 % Dropperette to eye 4 times daily as needed. atorvastatin (LIPITOR) 40 mg Take 40 mg by 0 Tablet mouth daily. lisinopril (PRINIVIL;ZESTRIL) 5 Take 1 tablet 7 tablet 0 1 07/03/2018 08/19/2021 mg Tablet by mouth daily. aspirin 81 mg Tablet, Chewable Take 81 mg by 0 06/19/2021 mouth daily. documented as of this encounter Progress Notes Abby Schneider RN - 05/03/2019 11:45 AM EST Pt d/c home with selfcare. AVS reviewed with pt. All questions and concerns answered. IV and telemetry d/c. Please left with friend via private vehicle. All belongings sent with pt. Lynda Alejo APRN - 05/03/2019 9:00 AM EST Inpatient Cardiology Progress Note Patient Name: Laurent Alexandra Service: SURVEY FIELD TECHNICIAN / PA Responsible Attending: Bong Mishra MD Reason for continued hospitalization: Evaluation and management of positive stress test, VT seen on stress echo at [facility] Medication adjustment Discharge home today Active Problems: Active Hospital Problems Diagnosis ??? Unstable angina ??? Essential hypertension ??? CAD (coronary artery disease) Resolved Hospital Problems No resolved problems to display. Interval History: Patient without chest pain or shortness of breath. Reviewed the findings of his cardiac catheterization, and he verbalizes good understanding. Reviewed medication adjustments and planfor discharge home today. He is agreeable to this. Telemetry review shows sinus rhythm with occasional PACs, no VT. Review of Systems: Review of Systems Respiratory: Negative for shortness of breath. Cardiovascular: Negative for chest pain. All other systems reviewed and are negative. Telemetry: HR: 60s sinus rhythm with rare-occasional PACs Meds: Scheduled Meds: ??? sodium chloride 0.9 % (flush) 5 mL Intravenous Q12H ??? aspirin 81 mg Oral Daily ??? atorvastatin 40 mg Oral QPM ??? metoprolol succinate 50 mg Oral BID ??? sodium chloride 0.9 % (flush) 5 mL Intravenous BID ??? sodium chloride 0.9 % (flush) 5 mL Intravenous BID ??? melatonin 3 mg Oral Nightly ??? lisinopril 5 mg Oral Daily Continuous Infusions: PRN Meds:sodium chloride 0.9 % (flush), lidocaine, sodium chloride 0.9 % (flush), lidocaine, nitroGLYcerin, sodium chloride 0.9 % (flush), acetaminophen Physical Exam: Vital Signs: Last value Range last 24 hrs Temperature Temp: 36.4 ??C (97.5 ??F) Temp: [36.3 ??C (97.3 ??F)-36.8 ??C (98.2 ??F)] Heart Rate Heart Rate: 69 Heart Rate: [61-71] Blood Pressure BP: 127/73 BP: (106-139)/(70-85) Respiratory Rate Resp: 16 Resp: [11-21] SpO2 SpO2: 99 % SpO2: [89 %-99 %] Physical Exam Constitutional: He is oriented to person, place, and time. He appears well- developed and well-nourished. No distress. HENT: Head: Normocephalic and atraumatic. Eyes: Right eye exhibits no discharge. Left eye exhibits no discharge. Neck: Normal range of motion. Neck supple. Cardiovascular: Normal rate, regular rhythm, normal heart sounds and intact distal pulses. Exam reveals no gallop and no friction rub. No murmur heard. Pulmonary/Chest: Effort normal and breath sounds normal. No respiratory distress. He has no wheezes.He has no rales. Abdominal: Soft. Bowel sounds are normal. He exhibits no distension. There is no tenderness. There is no rebound. Musculoskeletal: Normal range of motion. He exhibits no edema. Neurological: He is alert and oriented to person, place, and time. Skin: Skin is warm and dry. No rash noted. He is not diaphoretic. No erythema. Right wrist is clean, dry and intact. No hematoma or ooze. Radial pulse is present. Intact color, sensation and motion. Capillary refill is under 2 seconds. Psychiatric: He has a normal mood and affect. His behavior is normal. Nursing note and vitals reviewed. Lab Comments: Recent Labs 05/03/195 05/01/19 2245 WBC 5.5 6.0 HGB 13.5* 13.3* HCT 41.6 40.7 PLATELET 142* 141* No results for input(s): INR in the last 168 hours. Recent Labs 05/03/195 05/01/19 2245 NA 140 138 K 4.4 4.1 CL 104 101 CO2 24 26 BUN 12 15 CREATININE 0.96 0.95 Recent Labs 05/01/19 2245 AST 19 ALT 20 ALKPHOS 58 BILITOT 0.4 BILIDIR 0.1 Recent Labs 05/03/19 0445 05/01/19 2245 CALCIUM 8.9 9.1 9.1 MAGNESIUM -- 0.90 PHOS -- 3.8 Recent Labs 05/01/19 2245 TROPONINT <0.01 Pertinent Radiographic/Diagnostic Results: ECHO: 05/02/19 SUMMARY: ?? 1. The left ventricular chamber size is normal. Basal septal hypertrophy is observed. There is no evidence of LVOT obstruction. There are left ventricular segmental wall motion abnormalities present, as shown in the diagram below. There is normal global left ventricular systolic function. The quantitative left ventricular ejection fraction by biplane Lance's method is 65%. 2. Right ventricular chamber size, wall thickness, and systolic function are within normal limits. 3. There is no hemodynamically significant valve disease. 4. There is mild dilatation of the aortic root (3.9 cm), There is mild dilatation of the ascending aorta (3.7 cm). 5. See remainder of report for additional findings. ?? Cardiac cath 05/02/19: Hemodynamics: Left Heart Pressures Resting: Syst Diast EDP a v m Ao 117 65 88 LV 117 22 Coronary Angiography: Dominance: Right Left Main The left main was normal, free of disease. Left Anterior Descending There was mild diffuse (<=25% stenosis) disease of the entire vessel segment of the left anterior descending artery (LAD). Left Circumflex There was a 30% single discrete stenosis of the ostial segment of the left circumflex artery (LCX). The LCX was large. There was mild diffuse (<=25% stenosis) disease of the proximal segment of the first obtuse marginal branch (OM1) of the LCX. The previously placed stent is patent. Right Coronary Artery There was mild diffuse (<=25% stenosis) disease of the entire vessel segment of the right coronary artery (RCA). Ramus There was mild diffuse (<=25% stenosis) disease of the entire vessel segment of the ramus. The ostial segment of the ramus had a single discrete 30% stenosis. Vascular Access: Vascular Access Management: Mechanical Compression of the right radial artery access site was performed. Conclusions: * Nonobstructive coronary artery disease * Elevated left ventricular end diastolic pressure * Patent 17 year old stent in proximal OM1. Assessment: Laurent Alexandra is a 73 y.o. male with a history of ASCVD status post stenting in 2001, hypertension, hyperlipidemia who was transferred [facility] after abnormal stress test with an episode of monomorphic VT noted for approximately 15 seconds. He is s/p cardiac catheterization and was found to have nonobstructive CAD. His beta leo dose was increased and he has had no further runs of VT. Plan for discharge home today. Plan: Known ASCVD, status post positive stress test Nonobstructive CAD on cath Continue aspirin, statin, lisinopril, metoprolol Hypertension Continue lisinopril and metoprolol (was previously on atenolol) BP: (106-139)/(70-85) Hyperlipidemia Atorvastatin 40 mg daily TC 97, HDL 41, LDL 32, triglycerides 121 Alcohol use disorder Patient usually has 3 glasses of whiskey/gab yogi daily with his last drink being 3 days ago Continue alcohol assessment scale - no signs of withdrawal DVT prophylaxis: early ambulation CODE STATUS: FULL CODE Discussed with MD Lynda Holman APRN Cardiovascular Medicine 05/03/2019 Associated attestation - Bong Mishra MD - 05/03/2019 12:14 PM EST Cardiology Staff Laurent Alexandra is a 73 y.o. male whom I saw today with Ms. Alejo. I have personally interviewed and examined the patient and reviewed appropriate data, including labs, ECGs, and other diagnostic studies. I agree with the principal findings documented above, with additions and exceptions as below. The assessment and plan were formulated in discussion with me. Assessment: #Noncardiac chest pain #ASCVD, 1-vessel, status post OM PCI in 2001, patent stent In brief, this patient presented with exertional chest pain while shoveling snow. Stress echo showedresting lateral regionals without new WMAs but with ~15 seconds on MM NSVT. Invasive coronary angiography shows patient stent, no other obstructive disease. K and Mg normal. Plan: -Aspirin and statin -Maximize BB, 50 mg Toprol XL bid. -Discharge to home today. -Recommend longitudinal cardiology follow up (patient told me he has not seen a mutton puncher since PCI in 2001). Bong Mishra MD, DEQUAN Cardiovascular Medicine Bong Mishra MD - 05/02/2019 9:46 AM EST Images from the original note were not included. Inpatient Cardiology Progress Note Patient Name: Laurent Alexandra Service: SURVEY FIELD TECHNICIAN / PA Responsible Attending: Bong Mishra MD Reason for continued hospitalization: Evaluation and management of positive stress test, VT seen on stress echo at [facility] Awaiting cardiac catherization Active Problems: Active Hospital Problems Diagnosis ??? Unstable angina ??? Essential hypertension ??? CAD (coronary artery disease) Resolved Hospital Problems No resolved problems to display. Interval History: Patient without chest pain or shortness of breath. States his symptoms did not recur while on the treadmill. He has to shovel approximately 15 minutes before he was feeling his chest discomfort. Aware of the plan for cardiac cath today with likely discharge home tomorrow with either medical management or status post stent. Review of Systems: Review of Systems Respiratory: Negative for shortness of breath. Cardiovascular: Negative for chest pain. All other systems reviewed and are negative. Telemetry: HR: 60-90 sinus rhythm with rare PVCs Meds: Scheduled Meds: ??? aspirin 81 mg Oral Daily ??? atorvastatin 40 mg Oral QPM ??? metoprolol tartrate 25 mg Oral Q6H WAYNE ??? sodium chloride 0.9 % (flush) 5 mL Intravenous BID ??? sodium chloride 0.9 % (flush) 5 mL Intravenous BID ??? melatonin 3 mg Oral Nightly ??? lisinopril 5 mg Oral Daily Continuous Infusions: PRN Meds:sodium chloride 0.9 % (flush), lidocaine, nitroGLYcerin, sodium chloride 0.9 % (flush), acetaminophen Physical Exam: Vital Signs: Last value Range last 24 hrs Temperature Temp: 36.7 ??C (98.1 ??F) Temp: [36.7 ??C (98.1 ??F)-36.8 ??C (98.2 ??F)] Heart Rate Heart Rate: 69 Heart Rate: [69-94] Blood Pressure BP: 146/86 BP: (115-147)/(71-87) Respiratory Rate Resp: 18 Resp: [17-18] SpO2 SpO2: 94 % SpO2: [93 %-95 %] Physical Exam Constitutional: He is oriented to person, place, and time. He appears well- developed and well-nourished. No distress. HENT: Head: Normocephalic and atraumatic. Eyes: Right eye exhibits no discharge. Left eye exhibits no discharge. Neck: Normal range of motion. Neck supple. Cardiovascular: Normal rate, regular rhythm, normal heart sounds and intact distal pulses. Exam reveals no gallop and no friction rub. No murmur heard. Pulmonary/Chest: Effort normal and breath sounds normal. No respiratory distress. He has no wheezes.He has no rales. Abdominal: Soft. Bowel sounds are normal. He exhibits no distension. There is no tenderness. There is no rebound. Musculoskeletal: Normal range of motion. He exhibits no edema. Neurological: He is alert and oriented to person, place, and time. Skin: Skin is warm and dry. No rash noted. He is not diaphoretic. No erythema. Psychiatric: He has a normal mood and affect. His behavior is normal. Nursing note and vitals reviewed. Lab Comments: Recent Labs 05/01/195 WBC 6.0 HGB 13.3* HCT 40.7 PLATELET 141* No results for input(s): INR in the last 168 hours. Recent Labs 05/01/19 2245 NA 138 K 4.1 CL 101 CO2 26 BUN 15 CREATININE 0.95 Recent Labs 05/01/19 2245 AST 19 ALT 20 ALKPHOS 58 BILITOT 0.4 BILIDIR 0.1 Recent Labs 05/01/19 2245 CALCIUM 9.1 9.1 MAGNESIUM 0.90 PHOS 3.8 Recent Labs 05/01/19 2245 TROPONINT <0.01 Pertinent Radiographic/Diagnostic Results: ECHO: 05/02/19 SUMMARY: ?? 1. The left ventricular chamber size is normal. Basal septal hypertrophy is observed. There is no evidence of LVOT obstruction. There are left ventricular segmental wall motion abnormalities present, as shown in the diagram below. There is normal global left ventricular systolic function. The quantitative left ventricular ejection fraction by biplane Lance's method is 65%. 2. Right ventricular chamber size, wall thickness, and systolic function are within normal limits. 3. There is no hemodynamically significant valve disease. 4. There is mild dilatation of the aortic root (3.9 cm), There is mild dilatation of the ascending aorta (3.7 cm). 5. See remainder of report for additional findings. ?? Assessment: Laurent Alexandra is a 73 y.o. male with a history of ASCVD status post stenting in 2001, hypertension, hyperlipidemia who [place] abnormal [place] test with an episode of monomorphic VT noted for approximately 15 seconds. Plan for cardiac catheterization today. Plan: Known ASCVD, status post positive stress test Continue aspirin, statin, lisinopril, metoprolol Plan for cardiac catheterization today Hypertension Continue lisinopril and will increase metoprolol to 25 mg every 6 hours BP: (115-147)/(71-87) Hyperlipidemia Atorvastatin 40 mg daily TC 97, HDL 41, LDL 32, triglycerides 121 Alcohol use disorder Patient usually has 3 glasses of whiskey/gab yogi daily with his last drink being 3 days ago Continue alcohol assessment scale Discussed with MD Melinda Holman, STILL OPERATOR HELPER 05/02/2019 Cardiology Staff Addendum Laurent Alexandra is a 73 y.o. male whom I saw today with Ms. Rae. I have personally interviewedand examined the patient and reviewed appropriate data, including labs, ECGs, and other diagnostic studies. I agree with the principal findings documented above, with additions and exceptions as below.The assessment and plan were formulated in discussion with me. Assessment: #Noncardiac chest pain #ASCVD, 1-vessel, status post OM PCI in 2001, patent stent In brief, this patient presented with exertional chest pain while shoveling snow. Stress echo showedresting lateral regionals without new WMAs but with ~15 seconds on MM NSVT. Invasive coronary angiography shows patient stent, no other obstructive disease. K and Mg normal. Plan: -Aspirin and statin -Maximize BB, 50 mg Toprol XL bid. -Discharge to home tomorrow after overnight tele monitoring. -Recommend longitudinal cardiology follow up (patient told me he has not seen a mutton puncher since PCI in 2001). Bong Mishra MD, DEQUAN Cardiovascular Medicine documented in this encounter H&P Notes Robert Davis MD - 05/01/2019 10:24 PM EST Images from the original note were not included. Cardiology History and Physical Patient Name: Laurent Alexandra Date of : 1945 Age: 73 y.o. Hospital Admit Date: 05/01/2019 Inpatient Attending: Blessing Kwon MD PCP: Unknown Presenting Diagnosis/Chief Complaint: exertional chest pain/ Abnormal stress test Active Problem List: Active Hospital Problems Diagnosis ??? Unstable angina ??? Essential hypertension ??? CAD (coronary artery disease) Resolved Hospital Problems No resolved problems to display. History of Present Illness: HPI Laurent Alexandra is a 73 y.o. male w/ hx of OM CAD s/p stent in 2001, HTN, and HLD who [facility] test. The patient was seen by his primary care physician yesterday for routine visit and he described a month of new exertional chest pain that occurred when he shoveled snow. He describes the pain as discomfort/pressure-like in the middle of the chest with no radiation. He reports associated diaphoresis. He denies any other associated symptoms. He denies any prior similar episodes. States that the pain occurs infrequently with strenuous activity. The patient was sent to [facility] ED for further testing. Per chart review, the PCP noted concerning findings and an EKG done in the outpatient setting which was not sent with the patient's chart. Patient then left AMA and presented to the [facility]. Troponin was noted to be negative x3. EKG stable. An exercise echo stress test was done. It was terminated after 6 minutes due to fatigue. During stress, the patient developed multiple PVCs and then couplets and in the recovery. He developed an episode of monomorphic ventricular tachycardia rate 140 bpm lasting at least 15 seconds and terminated spont aneously. The patient did not have any symptoms in the process. The patient was then transferred here for cardiac cath. Home dose atenolol was DC'd and metoprolol tartrate was started at 12.5 mg every 6 hours. Of note, patient is a daily alcohol drinker. He drinks 3 glasses of whiskey gab yogi daily for many years. He denies any history of alcohol withdrawals. He is a former smoker, quit 20 years ago. On our encounter, the patient was noted to be chest pain-free and NAD. Previous Diagnostics: Stress Echo 05/01/19: Interpretation summary: 1. Abnormal exercise stress echo with resting wall motion abnormality in the inferior and lateral segments. The patient developed increasing ectopy during the exercise portion of the study and an episode of ventricular tachycardia in recovery. 2. The patient exercised 6 minutes 48 seconds on a Nathanael protocol, achieving workload of 7.2 METS. Exercise capacity is below average for age and gender. Exercise was stopped due to dyspnea.. With exercise there were no new EKG findings, or wall motion abnormality suggestive of ischemia-however ventricular tachycardia was seen in recovery. Past Medical History: Past Medical History: Diagnosis Date ??? CAD (coronary artery disease) ??? Hypertension Surgical History/Problems: History reviewed. No pertinent surgical history. Significant Family History: History reviewed. No pertinent family history. Social History: Social History Socioeconomic History ??? Marital status: Not on file Spouse name: Not on file ??? Number of children: Not on file ??? Years of education: Not on file ??? Highest education level: Not on file Occupational History ??? Not on file Social Needs ??? Financial resource strain: Not on file ??? Food insecurity: Worry: Not on file Inability: Not on file ??? Transportation needs: Medical: Not on file Non-medical: Not on file Tobacco Use ??? Smoking status: Former Smoker Years: 15.00 Types: Cigarettes Last attempt to quit: 05/01/2002 Years since quittin.0 ??? Smokeless tobacco: Never Used Substance and Sexual Activity ??? Alcohol use: Yes Comment: 3 glasses of whiskey and gingerale daily (21 glasses / week) ??? Drug use: Never ??? Sexual activity: Not on file Lifestyle ??? Physical activity: Days per week: Not on file Minutes per session: Not on file ??? Stress: Not on file Relationships ??? Social connections: Talks on phone: Not on file Gets together: Not on file Attends rastafari service: Not on file Active member of club or organization: Not on file Attends meetings of clubs or organizations: Not on file Relationship status: Not on file ??? Intimate partner violence: Fear of current or ex partner: Not on file Emotionally abused: Not on file Physically abused: Not on file Forced sexual activity: Not on file Other Topics Concern ??? Not on file Social History Narrative ??? Not on file REVIEW OF SYSTEMS: General ROS: No fatigue or weakness. Psychological: no anxiety / Depression Ophthalmic: No blurred vision or watery or red eyes. ENT: Negative for ear discharge or running nose or cold or throat swelling. Allergy: negative for itchy/watery eyes Heme: Negative for bleeding, bruising, fatigue, jaundice, night sweats Endocrine: negative for polydipsia/polyuria/ heat intolerance Respiratory: As in HPI CVS: As in HPI GI: No abd pain, change in bowel habits, or black or bloody stools Genitourinary: No dysuria, trouble voiding, or hematuria MSK: negative for joint pain, joint stiffness or joint swelling Neurological: No TIA or stroke symptoms PHYSICAL EXAM: Last set of vital signs: BP 145/87 (BP Location (NBP): Right arm, Patient Position: Sitting) Pulse73 Temp 36.7 ??C (98.1 ??F) (Oral) Resp 18 Ht 177.8 cm (5' 10) Wt 93.1 kg (205 lb 4 oz) SpO2 93% BMI 29.45 kg/m?? Gen/Constitutional: Comfortable and NAD HEENT: TAMAR, EOMI, No conjunctival pallor or scleral icterus. Cardiac/CVS: RRR. NL s1, s2. No s3 or s4. No MRG. No JVD Pulm/Chest: CTAB Abd/GI: Soft. No distention or tenderness. Musculoskeletal: no peripheral edema . Pulses palpable B/L, no calf tenderness, swelling, or erythema. Neuro/MOBILE LOUNGE DRIVER OR OPERATOR: AAO x 3, No gross motor deficits. No sensory loss. No gait ataxia. Skin/Integumentary: No rash Diagnostics: EKG: A&P: Laurent Alexandra is a 73 y.o. male w/ hx of OM CAD s/p stent in 2001, HTN, and [facility]. The test was terminated at 6:48 min due to dyspnea. During stress, the patient developed multiple PVCs and then couplets and in the recovery. He developed an episode of monomorphic ventricular tachycardia rate 140 bpm lasting at least 15 seconds and terminated spontaneously. #New Anginal symptoms; NSVT on stress test #CAD s/p OM stent in 2001 No symptoms at present Admit to cardiology, telemetry monitoring Repeat EKG and send troponin Troponin negative and OSH C/w metoprolol tartrate 25 mg every 12 hours Cardiac cath in a.m. C/w ASA 81 mg daily Send labs including CBC, BMP, proBNP, TSH, A1c, lipid panel C/w atorvastatin 80 mg daily Echo in a.m. #HTN Poorly controlled, the patient reports having whitecoat hypertension at baseline Metoprolol tartrate 25 mg every 12 hours Add lisinopril 5 mg PO daily Monitor vs #HLD Lipid panel in a.m. Atorvastatin 80 mg daily #Alcohol use disorder 3 glasses of whiskey gab yogi daily, last drink 2 days ago No history of alcohol withdrawals We will monitor closely for alcohol withdrawal with [facility] follow protocol in the event HM Full code DVT prophylaxis: Heparin 5000 units subcu every 8 hours Heart healthy diet, n.p.o. at midnight Robert Davis MD Provider #: [id number] 05/01/2019 documented in this encounter Miscellaneous Notes Plan of Care - Tatyana Rocha RN - 05/03/2019 4:53 AM EST Problem: Patient Care Overview Goal: Plan of Care Review OUTCOME EVALUATION NOTE: OUTCOME SUMMARY: Tolerated procedure, s/p cardiac cath. Denies complaints. No intervention done. Right radial access site stable. Pt independent in room. Call light in reach. PLAN MOVING FORWARD: Med management Home soon INDIVIDUALIZED FALL PREVENTION INTERVENTIONS: Patient-specific fall risk factors per assessment: [current deficits]: Tubings, wires Assistance [level of assistance required for transfers and ambulation]: independent Supervision [direct monitoring required during toileting and ADLs]: independent Surveillance [continuous indirect monitoring]: Hourly rounding, telemetry Patient-specific fall prevention interventions for sensory deficits provided, if applicable: [X] N/A CPG GOAL OUTCOME EVALUATION: Plan of Care - Kassi Meyers RN - 05/02/2019 4:56 PM EST Problem: Cardiac: ACS (Acute Coronary Syndrome) (Adult) Goal: Signs and Symptoms of Listed Potential Problems Will be Absent, Minimized or Managed (Cardiac:ACS) Signs and symptoms of listed potential problems will be absent, minimized or managed by discharge/transition of care (reference Cardiac: ACS (Acute Coronary Syndrome) (Adult) CPG). 05/02/19 1640 Cardiac: ACS (Acute Coronary Syndrome) Problems Assessed (Acute Coronary Syndrome (ACS)) all Problems Present (Acute Coronary Syndrome (ACS)) dysrhythmia/arrhythmia Problem: Patient Care Overview Goal: Plan of Care Review Outcome: Ongoing (Interventions Implemented as Appropriate) 05/02/19 1640 Plan of Care Review Progress progress towards functional goals is fair OUTCOME EVALUATION NOTE: OUTCOME SUMMARY:Mr Fletcher To the flue dust laborer today with Finding of Clean coronaries PLAN MOVING FORWARD: adjust medication : Manage and monitor till tomorrow Then Reassess Outcome INDIVIDUALIZED FALL PREVENTION INTERVENTIONS: Patient-specific fall risk factors per assessment: [current deficits]: Generalized weakness Assistance [level of assistance required for transfers and ambulation]: Up with a stand by assist Supervision [direct monitoring required during toileting and ADLs]: Pt Placed Near the nursing work station For close observation Surveillance [continuous indirect monitoring]: Tele And hourly Rounding Patient-specific fall prevention interventions for sensory deficits provided, if applicable: [X] No CPG GOAL OUTCOME EVALUATION: cont'd monitoring Goal: Infection Control Outcome: Ongoing (Interventions Implemented as Appropriate) 05/02/19 1640 Coping Strategies Supportive Measures problem solving facilitated;self-responsibility promoted;verbalization of feelings encouraged Safety Interventions Isolation Precautions standard precautions maintained Infection Prevention rest/sleep promoted Goal: Discharge Needs Assessment Outcome: Ongoing (Interventions Implemented as Appropriate) 05/02/19 1640 Discharge Needs Assessment Concerns To Be Addressed no discharge needs identified Readmission Within The Last 30 Days no previous admission in last 30 days Provider Choice List(s) Given no Equipment Needed After Discharge none Current Health Anticipated Changes Related to Illness none Activity/Self Care Review of Systems Equipment Currently Used at Home none Living Environment Transportation Available family or friend will provide Goal: Interdisciplinary Rounds/Family Conf Outcome: Ongoing (Interventions Implemented as Appropriate) 05/02/19 1640 Interdisciplinary Rounds/Family Conf Participants family;patient;physician;nursing;advanced practice nurse Brief Op Note - Elijah Parker MD - 05/02/2019 11:41 AM EST Preliminary Cardiac Catheterization Procedure Note: Patient Name: Laurent Alexandra : [id number] MR#: [id number] Case Date: 05/02/2019 Branch Service Leader: Surgeon(s) and Role: * Elijah Parker MD - Primary * Anil Shook MD - Fellow Preoperative diagnosis: ASCVD Postoperative diagnosis: same Procedure(s) performed: Coronary angiography, left heart cath Access: 6 SL R radial => TR band A time-out was conducted prior to the start of the procedure to verify the correct patient and procedure, procedure location, and all relevant critical information. Preliminary findings: R dominant coronary circulation, mild diffuse disease all vessels. 30% ostial stenosis in moderate size ramus. Patent 18 year old OM 1 stent. LVEDP 22. The patient tolerated the procedures smoothly and was transferred from the cardiac catheterization lab to the next level of care in stable condition. No evident early complications. Full report to follow. ELIJAH PARKER MD Initial Assessments - Meli Schumacher RN - 05/02/2019 6:56 AM EST Office of Care Management Initial Assessment Meli Schumacher RN reviewed record and discussed patient with Care Team. Source of Information: Chart review, patient, nursing and provider teams. Introduced self/reviewed role; services accepted. Reason for Hospitalization: ??? Unstable angina ? Essential hypertension ? CAD (coronary artery disease) See H&P Past Medical History: Diagnosis Date ??? CAD (coronary artery disease) ??? Hypertension Hospitalizations Within the Past 30 Days: none Anticipated Length Of Stay (If known): 1-2 days Current Decision-Making Capacity: self Advance Care Planning: none - has a copy at home to fill out; Encouraged that he follows up with PCP. If AD's have not been completed Jose Alfredo Alexandra (Child) would be surrogate decision maker per [place] surrogate decision making law. Any patient receiving care at [facility] must abide by [place] law. The hierarchy for surrogate decision making is: (a) Patient???s spouse, or civil union partner or common law spouse unless there is a divorce proceeding, separation agreement, or restraining order limiting that person???s relationship with the patient. (b) Any adult son or daughter of the patient. (c) Either parent of the patient. (d) Any adult brother or sister of the patient. (e) Any adult grandchild of the patient. (f) Any grandparent of the patient. (g) Any adult aunt, uncle, niece, or nephew of the patient. (h) A close friend of the patient. (i) The agent with financial power of head orthopedic team physician or a conservator appointed in accordance with RSA 464-A. (j) The guardian of the patient???s estate. Current Coping/Education/Information Needs: awaiting cardiology testing Current Functional Ability: Independent Functional Status Prior to Admission: Independent; no DME Home Environment: Will stay with his S[employer] - 1 level home and no [facility] Social & Family Supports/Community Resources: S[facility] and [facility] History: denies Substance Use/Abuse: denies Other Pertinent/Service Specific Information: none Health/Prescription Coverage: Primary Insurance: Anywhere.FM Secondary Insurance: Medicare A/B [facility] Primary Care Provider: Dr. Jose Moe [facility] Patient/Caregiver Goals of Treatment: Home without services Potential Needs for Transition of Care: Transportation: [facility] Anticipated Barriers to Discharge/Special Considerations: none Assessment/Plan: 73 y/o male; [place], Essential HTN, CAD [facility] with [facility] [place] [facility] and NSVT on stress test; pending cath this morning; no home care services anticipated; Transport: [facility]. A member of the Care Management team will continue to monitor progress, follow for continuity of care and assist with transition of care planningGus Schumacher RN (Jonas) Pager [phone] Plan of Care - Robert Davis MD - 05/02/2019 1:01 AM EST Images from the original note were not included. Cardiac cath Pre Procedure Note The indications, expected benefits and potential risks of heart catheterization were reviewed in detail with the patient. The potential for , heart attack, stroke, kidney failure, hemorrhage, allergic reaction, vascular complications and infection were reviewed in detail. The possibility of stenting and other percutaneous intervention with associated risk was reviewed. The possible need for emergent coronary artery bypass surgery was reviewed. After a discussion about the above, and having answered all questions posed, the patient was provided with a consent which was reviewed and signed. ASA: II Mallampati: III Sedation Plan: Moderate Conscious Sedation Assessment and Plan: Proceed with cardiac cath today, see progress note from today for further details. Robert Davis MD 05/02/2019 Pager [phone] documented in this encounter Plan of Treatment Not on filedocumented as of this encounter Procedures Procedure Name Priority Date/Time Associated Comments Diagnosis EKG 12-LEAD Routine 05/03/2019 9:06 Unstable angina Results f or this AM EST procedure are i n the results section. BMP W/FASTING GLUCOSE Timed 05/03/2019 4:45 Res ults for this AM EST procedure are i n the results section. HEMOGRAM Timed 05/03/2019 4:45 Results for this AM EST procedure are i n the results section. DIFFERENTIAL, AUTOMATED Timed 05/03/2019 4:45 R esults for this AM EST procedure are i n the results section. HC VENIPUNCTURE Timed 05/03/2019 4:45 AM EST CARDIAC CATHETERIZATION Routine 05/02/2019 11:24 Results for this AM EST procedure are i n the results section. ECHOCARDIOGRAM COMPLETE Routine 05/02/2019 7:58 Unstable angin a Results for this AM EST procedure are i n the results section. HC HEMOGLOBIN A1C Routine 05/02/2019 4:10 Results for this AM EST procedure are i n the results section. HC VENIPUNCTURE Routine 05/02/2019 4:10 Results f or this AM EST procedure are i n the results section. HEMOGRAM Routine 05/01/2019 10:45 Results for this PM EST procedure are i n the results section. DIFFERENTIAL, AUTOMATED Routine 05/01/2019 10:45 Results for this PM EST procedure are i n the results section. HC CBC,PLT & AUTO DIFF Routine 05/01/2019 10:45 PM EST HC TROPONIN T STAT 05/01/2019 10:45 Results fo r this PM EST procedure are i n the results section. HC THYROID STIMULATING Routine 05/01/2019 10:45 R esults for this HORMONE, SERUM PM EST procedure are in the results section. HC PHOSPHORUS, SERUM Routine 05/01/2019 10:45 Res ults for this PM EST procedure are i n the results section. HC PROBNP Routine 05/01/2019 10:45 Results for this PM EST procedure are i n the results section. HC MAGNESIUM, SERUM Routine 05/01/2019 10:45 Resu lts for this PM EST procedure are i n the results section. HC CALCIUM, SERUM Routine 05/01/2019 10:45 Result s for this PM EST procedure are i n the results section. HEPATIC FUNCTION PANEL Routine 05/01/2019 10:45 R esults for this PM EST procedure are i n the results section. BASIC METABOLIC PANEL Routine 05/01/2019 10:45 Re sults for this (NON-FASTING) PM EST procedure are in the results section. EKG 12-LEAD Routine 05/01/2019 10:31 Unstable angina Results for this PM EST procedure are i n the results section. documented in this encounter Results EKG 12 Lead (05/03/2019 9:06 AM EST) Component Value Ref Range Test Analysis Performed Pathologis t Method Time At Signature Ventricular rate 69 BPM MUSE SYSTEM Atrial Rate 69 BPM MUSE SYSTEM P-R Interval 184 ms MUSE SYSTEM QRS Duration 88 ms MUSE SYSTEM Q-T Interval 404 ms MUSE SYSTEM QTC Calculated 432 ms MUSE SYSTEM (Bezet) Calculated P Darwin 33 degrees MUSE SYSTEM Calculated R Darwin -37 degrees MUSE SYSTEM Calculated T Darwin 27 degrees MUSE SYSTEM INTERPRETATION Normal sinus rhythm MUSE SYSTEM Left axis deviation Possible Inferior infarct , age undetermined Abnormal ECG When compared with ECG of 01-MAY-2019 22:31, Borderline criteria for Inferior infarct are now Present Confirmed by ELVIS, ??BLESSING PERES ([id number]) on 05/03/2019 5:02:1 9 PM Specimen Anatomical Collection Method Collection Time Receive d Time (Source) Location / / Volume Laterality 05/03/2019 9:06 AM 9 5:02 EST PM EST Melinda Rae STILL OPERATOR HELPER ECG ORDERABLES Performing Organization Address City/State/ZIP Code Phon e Number MUSE SYSTEM Differential, Automated (05/03/2019 4:45 AM EST) P athologist Signature Neutrophils % 56.9 % [facility] Neutr Abs (ANC) 3.11 1.70 - [facility] 6.10 [facility] x10(3)/[facility] LABORATORY Lymphocytes % 28.0 % [facility] Lymphocytes Abs 1.5 0.9 - 3.2 [facility] x10(3)/[facility] LABORATORY Monocytes % 10.4 % [facility] Monocyte Abs 0.6 0.3 - 0.9 [facility] x10(3)/[facility] LABORATORY Eosinophils % 3.8 % [facility] Eosinophils Abs 0.2 0.0 - 0.4 [facility] x10(3)/[facility] LABORATORY Basophils % 0.5 % [facility] Basophils Abs 0.0 0.0 - 0.1 [facility] x10(3)/[facility] LABORATORY Immature Gran % 0.40 % [facility] Comment: Immature granulocytes(IG's)percentage an d absolute count will include metamyelocytes, myelocytes, and promyelo cytes. Blood smears from CBCs yielding IG's will be scanned manually for concor dance. If this scan disagrees with the automated IG or if promyelocytes are not ed, a manual differential will be performed. [place] Gran Abs 0.02 0.00 - 0.04 x10(3)/[facility] Specimen Anatomical Collection Method Collection Time Receive d Time (Source) Location / / Volume Laterality Blood specimen 05/03/2019 4:45 AM 019 4:49 (specimen) EST AM EST Resulting Agency Comment Spec In Lab Melinda Rae STILL OPERATOR HELPER HEMATOLOGY ORDERABLES Performing Organization Address City/State/[place] [address] (ABNORMAL) Hemogram (05/03/2019 4:45 AM EST) Analysis Performed At Patho logist Time Signature WBC 5.5 4.0 - 9.5 [facility] x10(3)/[facility] LABORATORY RBC 4.37 (L) 4.58 - [facility] 5.54 [facility] x10(6)/[facility] LABORATORY Hemoglobin 13.5 (L) 13.7 - JARAD ANIKA 16.5 gm/dL [facility] LABORATORY Hematocrit 41.6 40.5 - JARAD DONALDSON 48.5 % [facility] LABORATORY MCV 95.2 (H) 82.9 - [facility] 93.1 [facility] LABORATORY MCH 30.9 27.5 - JARAD ANIKA 32.1 pg [facility] LABORATORY MCHC 32.5 32.0 - JARAD LEMUSANIKA 35.7 gm/dL [facility] LABORATORY Platelets 142 (L) 145 - 357 [facility] x10(3)/[facility] LABORATORY RDWSD 45.4 (H) 36.0 - [facility] RDWCV 13.1 11.4 - [facility] 13.8 % [facility] LABORATORY MPV 9.2 7.6 - 12.9 [facility] LABORATORY nRBC % Auto 0.0 % [facility] LABORATORY nRBC Abs Auto 0.000 0.000 - [facility] 0.000 [facility] x10(3)/[facility] LABORATORY Specimen Anatomical Collection Method Collection Time Receive d Time (Source) Location / / Volume Laterality Blood specimen 05/03/2019 4:45 AM 019 4:49 (specimen) EST AM EST Resulting Agency Comment Spec In Lab Melinda Rae APRN HEMATOLOGY ORDERABLES Performing Organization Address City/State/[place] [address] (ABNORMAL) BMP w/fasting Glucose (05/03/2019 4:45 AM EST) P athologist Signature Glucose 116 (H) 65 - 99 [facility] Fasting mg/dL [facility] Comment: ?Fasting* Glucose Interpretive C riteria Normal ?65-99 mg/dL Impaired Fasting glucose ?100-125 mg/dL Consistent with Diabetes Mellitus ? >or= 126 mg/dL *Fasting is defined as no caloric intake for at least 8 hours In the absence of unequivocal hypergly cemia a plasma glucose value of >or= 126 mg/dL should be repeated on a subseq uent day. Diagnosis and Classification of Diabetes Mellitus, Position Statement from the [place] [employer]. ??Diabete s Care, Volume 33, Supplement 1, Jun 2009 BUN 12 10 - 20 mg/dL [facility] LABORATORY Creatinine 0.96 0.80 - 1.50 mg/dL [facility] LABORATORY Sodium 140 135 - 145 mmol/L [facility] LABORATORY Potassium 4.4 3.5 - 5.0 mmol/L [facility] LABORATORY Comment: Please note: ??Patients with WBC >100,00 0 may have falsely elevated Potassium levels. ??For accurate Potassium quantif ication in these patients send serum separator tube (gold top) for subsequent determinations. ??Contact the Clinical Chemistry Laboratory if there are any qu estions. Chloride 104 98 - 107 mmol/L [facility] LABORATORY CO2 24 22 - 31 mmol/L [facility] LABORATORY Anion Gap 12 5 - 15 mmol/L [facility] LABORATORY Calcium 8.9 8.5 - 10.5 mg/dL [facility] LABORATORY Estimated GFR 79 >=60 mL/min/1.73 m?? [facility] LABORATORY Comment: The eGFR was calculated using the CKD-EP I equation. As with all creatinine based estimates of kidney function, eGFR values calculated with the CKD-EPI equation are not accurate in patients wi th acute kidney failure, extremes of body mass or the acutely ill. [email or web address] eGFR 91 >=60 mL/min/1.73 m?? [facility] LABORATORY Comment: The eGFR was calculated using the CKD-EP I equation. As with all creatinine based estimates of kidney function, eGFR values calculated with the CKD-EPI equation are not accurate in patients wi th acute kidney failure, extremes of body mass or the acutely ill. [email or web address] Specimen Anatomical Collection Method Collection Time Receive d Time (Source) Location / / Volume Laterality Blood specimen 05/03/2019 4:45 AM 019 4:49 (specimen) EST AM EST Resulting Agency Comment Spec In Lab Melinda Rae STILL OPERATOR HELPER CHEMISTRY ORDERABLES Performing Organization Address City/State/[place] [address] CARDIAC CATHETERIZATION (05/02/2019 11:24 AM EST) Specimen (Source) Anatomical Location Collection Method / Collectio n Time Received Time / Laterality Volume Narrative CARDIOMAC SYSTEM - 05/02/2019 11:[address] ?[facility] ? Cardiac Cathete rization/Intervention Report ? Patient Name: Laurent Alexandra ? Procedure Date: 05/02/2019 ? A #: [id number] ? Primary Physician: Elijah Parker ? Case #: [id number] ? File Name: [id number] ? Catheterization Order Number: [id number] ? [facility] ? Final Report [place], [place] ? Patient Name: ? Laurent Rich ult ?ID#: ?[id number] ? : ?1945 ? Procedure Date: ? November 27, 20 19 ?Case #: ? [id number] ? Room: ? 5 ? Case Physician: ? Reyna Bee ? Start: ?10:46 ?Fellow: ? Eunadithyag Cho i, M.D. ? Admission: ??05/01/2019 ? Referring Physician: ??Janusz Reddy M.D. ? Procedures: ?* Coronary Angiography ?* Left Heart Catheterization ? History ?Laurent Alexandra is a 73 year old man. The patient's smoking status is ?Former. The patient has hyperch olesterolemia managed with lipid therapy. ?He has a prior history of coron mercy artery disease. The patient is status ?post a remote myocardial infarc tion. He had a remote coronary ?intervention procedure. Prior t o the initiation of this procedure, the ?patient was designated as ASA C lass III. The [facility] clinical frailty scale ?is 4: Vulnerable. ? Diagnostic Tests: ?Prior Coronary Angiography: ? Prior coronary angiograp hy was performed on 12/18/2001 and showed ? obstructive CAD. LV ejec tion fraction within 6 months is 65%. ?Electrocardiography: ? EKG was assessed by ECG. EKG was Abnormal. EKG showed exercise ? Induced ventricular tach ycardia and other abnormality. ?Stress or Imaging Studies: ? An echo stress test was performed on 05/01/2019 and was ? Indeterminant. ?Medications Prior to Procedure: ? ASA, Beta Leo and St atin. ? Indications for Diagnostic Cath: ?The priority of the diagnostic procedure was Urgent. 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 Chest pain symptom assessment ?was: Typical Angina. ? Technique: ?A 6Fr sheath was inserted in th e right radial artery utilizing the ?Seldinger technique. The left c oronary artery was injected utilizing a ?6Fr JL 4 catheter. A 6Fr JR 4 c atheter was used to inject the right ?coronary artery. Left ventricul ar pressure was performed with a 6Fr JR 4 ?catheter. 5,000 units of hepari n were administered. A total of 100cc of ?Omnipaque were opened, 85cc of Omnipaque were administered and 15cc of ?Omnipaque were wasted. Radiatio n: Fluoro time was 5.1 minutes, dose area ?product was 50,890 mGYcm2 and a ir kerma was 1,372 mGY. See the case log ?for additional details. ?The patient received the follow ing medications prior to and during the ?procedure: ? Unfractionated Heparin. ? Hemodynamics: ?Left Heart Pressures ? Resting: ? Syst D iast ? EDP ?a ?v ? m ?Ao 117 ?? 65 ?88 ?LV 117 ? 22 ? Coronary Angiography: ?Dominance: Right ?Left Main ? The left main was normal , free of disease. ?Left Anterior Descending ? There was mild diffuse ( <=25% stenosis) disease of the entire vessel ? segment of the left ante rior descending artery (LAD). ?Left Circumflex ? There was a 30% single d iscrete stenosis of the ostial segment of ? the left circumflex antwon ry (LCX). ??The LCX was large. ? There was mild diffuse ( <=25% stenosis) disease of the proximal ? segment of the first obt use marginal branch (OM1) of the LCX. ??The ? previously placed stent is patent. ?Right Coronary Artery ? There was mild diffuse ( <=25% stenosis) disease of the entire vessel ? segment of the right cor onary artery (RCA). ?Ramus ? There was mild diffuse ( <=25% stenosis) disease of the entire vessel ? segment of the ramus. ?? The ostial segment of the ramus had a single ? discrete 30% stenosis. ? Vascular Access: ?Vascular Access Management: ? Mechanical Compression o f the right radial artery access site was ? performed. ? Conclusions: ?* Nonobstructive coronary arter y disease ?* Elevated left ventricular end diastolic pressure ?* Patent 17 year old stent in p roximal OM1. ? Complications/Events: ?The patient had no complication s during these procedures. ?The attending physician was jonel valentin for the entire procedure. ?Dr. Elijah Parker M.D. was present during the moderate sedation ?intraservice time as documented by the sedation nurse. ??Case time = 00:34. ?Dr. Elijah Parker M.D. performed t he coronary angiography and left heart ?catheterization. ? Elijah Parker M.D. ? Electronically Signed by: Elijah Parker M.D. ? Report Finalized: 05/02/2019 ??11:52 ? Report Last Ammended: 05/17/2019 ??10:43 ? Procedure Note Elijah Parker MD - 05/17/2019 [facility] Cardiac Catheterization/Intervention Re port Patient Name: Laurent Alexandra Procedure Date: 05/02/2019 A #: [id number] Primary Physician: Elijah Parker Case #: [id number] File Name: [id number] Catheterization Order Number: [id number] [facility] Final Report [place], [place] Patient Name: Laurent Alexandra ID#: [id number] : 1945 Procedure Date: May 02, 2019 Case # : [id number] Room: 5 Case Physician: Elijah Parker M.D. Start : 10:46 Fellow: Anil Shook M.D. Admission: 1 07/01/2018 Referring Physician: Janusz Reddy M.D. Procedures: * Coronary Angiography * Left Heart Catheterization History Laurent Alexandra is a 73 year old man. The patient's smoking status is Former. The patient has hypercholestero lemia managed with lipid therapy. He has a prior history of coronary antwon ry disease. The patient is status post a remote myocardial infarction. He had a remote coronary intervention procedure. Prior to the in itiation of this procedure, the patient was designated as ASA Class III . The [facility] clinical frailty scale is 4: Vulnerable. Diagnostic Tests: Prior Coronary Angiography: Prior coronary angiography was performe d on 12/18/2001 and showed obstructive CAD. LV ejection fraction w ithin 6 months is 65%. Electrocardiography: EKG was assessed by ECG. EKG was Abnorm al. EKG showed exercise Induced ventricular tachycardia and oth er abnormality. Stress or Imaging Studies: An echo stress test was performed on and was Indeterminant. Medications Prior to Procedure: ASA, Beta Leo and Statin. Indications for Diagnostic Cath: The priority of the diagnostic procedur e was Urgent. 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 Chest pain symptom assessment was: Typical Angina. Technique: A 6Fr sheath was inserted in the right radial artery utilizing the Seldinger technique. The left coronary artery was injected utilizing a 6Fr JL 4 catheter. A 6Fr JR 4 catheter was used to inject the right coronary artery. Left ventricular press ure was performed with a 6Fr JR 4 catheter. 5,000 units of heparin were a dministered. A total of 100cc of Omnipaque were opened, 85cc of Omnipaqu e were administered and 15cc of Omnipaque were wasted. Radiation: Fluor o time was 5.1 minutes, dose area product was 50,890 mGYcm2 and air kerma was 1,372 mGY. See the case log for additional details. The patient received the following medi cations prior to and during the procedure: Unfractionated Heparin. Hemodynamics: Left Heart Pressures Resting: Syst Diast EDP a v m Ao 117 65 88 LV 117 22 Coronary Angiography: Dominance: Right Left Main The left main was normal, free of disea se. Left Anterior Descending There was mild diffuse (<=25% stenosis) disease of the entire vessel segment of the left anterior descending artery (LAD). Left Circumflex There was a 30% single discrete stenosi s of the ostial segment of the left circumflex artery (LCX). The L CX was large. There was mild diffuse (<=25% stenosis) disease of the proximal segment of the first obtuse marginal br anch (OM1) of the LCX. The previously placed stent is patent. Right Coronary Artery There was mild diffuse (<=25% stenosis) disease of the entire vessel segment of the right coronary artery (R CA). Ramus There was mild diffuse (<=25% stenosis) disease of the entire vessel segment of the ramus. The ostial segmen t of the ramus had a single discrete 30% stenosis. Vascular Access: Vascular Access Management: Mechanical Compression of the right rad ial artery access site was performed. Conclusions: * Nonobstructive coronary artery diseas e * Elevated left ventricular end diastol ic pressure * Patent 17 year old stent in proximal OM1. Complications/Events: The patient had no complications during these procedures. The attending physician was present for the entire procedure. Dr. Elijah Parker M.D. was present duri ng the moderate sedation intraservice time as documented by the sedation nurse. Case time = 00:34. Dr. Elijah Parker M.D. performed the co ronary angiography and left heart catheterization. Elijah Parker M.D. Electronically Signed by: Elijah Parker M.D. Report Finalized: 05/02/2019 11:52 Report Last Ammended: 05/17/2019 10:43 Elijah Parker MD CARDIAC CATH ORDERABLES Performing Organization Address City/State/ZIP Code Phon e Number CARDIOMAC SYSTEM ECHOCARDIOGRAM COMPLETE (05/02/2019 7:58 AM EST) P athologist Signature EF 65 HEARTLAB SYSTEM Specimen (Source) Anatomical Location Collection Method / Collectio n Time Received Time / Laterality Volume 05/02/2019 Narrative HEARTLAB SYSTEM - 05/02/2019 8:21 AM EST Procedure: ?Transthoracic Echocardiogram Patient: ?ROSEANNE BRUCE ? (Age): 1945(73y) Med Rec#: ? [id number] ?Sex: ?M ? Site Loc: ? [facility] ?Ht / Wt: ??177(cm)/93(kg) Pt. Loc: ?Adult Floor ? BSA: ?2.1 Study Date: ?? 05/02/2019 ?Pt. Type: Inpatient Tape: ? Referring: ROBERT DAVIS Reading: Ramy Taylor ([id number]) Lockmaker: Ilia Pickard TRACE Diagnosis: *Unstable angina (I20.0) BP: ? 115/71 SUMMARY: 1. The left ventricular chamber size is normal. Basal septal hypertrophy is observed. There is no evidence of LVO T obstruction. There are left ventricular segmental wall motion abnorm alities present, as shown in the diagram below. There is normal global le ft ventricular systolic function. The quantitative left ventricu lar ejection fraction by biplane Lance's method is 65%. 2. Right ventricular chamber size, wall thickness, and systolic function are within normal limits. 3. There is no hemodynamically significa nt valve disease. 4. There is mild dilatation of the aorti c root (3.9 cm), There is mild dilatation of the ascending aorta (3.7 c m). 5. See remainder of report for additiona l findings. Findings ? : Study Quality: ? Adequate Left Ventricle: ? The left ventricul ar chamber size is normal. ?Basal septal hypertrophy is observ ed. ?There is no evidence of LVOT obstr uction. ?No ventricular septal defect is vi sualized. ?There is normal global left ventri cular systolic function. ?The quantitative left ventricular ejection fraction by biplane Lance's method is 65%. ?There are left ventricular segment al wall motion abnormalities present, as shown in the diagram below. ?The left ventricular diastolic rao ling pattern is consistent with impaired LV relaxation. ?Doppler assessment is consistent w ith normal left sided filling pressure. ?The ??basal inferolateral, mid ant erolateral, and ??mid inferolateral wall segments are hypokinetic (score 2). ?Overall wallmotion score index is ??1.19 Left Atrium: ? The left atrium is no rmal in size. ?No atrial septal defect is visuali zed. Right Ventricle: ? Right ventricular chamber size, wall thickness, and systolic function are within normal limi ts. ?Pulmonary artery hypertension coul d not be assessed due to inadequate tricuspid regurgitation jet. ?The estimated right atrial pressur e is 3 mmHg. Right Atrium: ? The right atrium edwin ears normal. Aortic Valve: ? The aortic valve is tricuspid. ?The aortic valve leaflets are mild ly thickened. ?Systolic excursion of the aortic v alve is normal. ?There is no evidence of aortic demetrio ve stenosis. ?There is no evidence of aortic reg urgitation. Mitral Valve: ? The mitral valve edwin ears normal in structure and function. ?There is trace mitral regurgitatio n present. Tricuspid Valve: ? The tricuspid demetrio ve appears normal in structure and function. ?There is trace tricuspid regurgita tion present. Pulmonic Valve: ? The pulmonic valve is not well visualized. Pericardium: ? The pericardium appea rs normal and there is no evidence of a pericardial effusion. Aorta: ? There is mild dilatation of the aortic root. 3.9 cm ?There is mild dilatation of the as cending aorta. 3.7 cm Pulmonary Artery: ? The main pulmona ry artery appears normal. Venous: ? The inferior vena cava edwin ears normal in size. ?There is a greater than 50% respir atory change in the inferior vena cava dimension. Misc: ? Two-dimensional echo, spectr al Doppler and color Doppler performed. Chambers 2D ?Value ?Units (Range) ? IVSd (2D) ? 1.4 ?cm ? LVPWd (2D) ?1 ?cm ? IVS:LVPW ratio (2D) 1.4 ?ratio ? RWT (2D) ?0.5 ?ratio ? RWT PW (2D) ? 0.5 ?ratio ? LVIDd (2D) ?4.4 ?cm ? LVIDs (2D) ?3.6 ?cm ? LVIDd (2D) index ?2.1 ?cm/m2 ? LVIDs (2D) index ?1.7 ?cm/m2 ? LV FS (2D) ?18 ? % ? EF Teichholz (2D) ?? 37 ? % ? Ao root diameter (2D3.9 ?cm (2.1 - 3.6) ? Ascending Ao ?3.7 ?cm (2 - 3.5) ? Volumes/Mass ?Value ?Units (Range) ? LA Area 4 CH ?14 ? cm2 (<21) ? LA ESV BP (A/L) inde22.1 ? ml/m2 ? RA AREA 4CH ? 14.9 ? cm2 ? LV ESV SP 4CH (MOD) 29.1 ? ml ? LV ESV SP 2CH (MOD) 35.6 ? ml ? LV EDV BP ? 95 ? ml ? LV ESV BP ? 33.4 ? ml ? LV EDV BP index ? 45.2 ? ml/m2 ? LV ESV BP index ? 15.9 ? ml/m2 ? BP EF (MOD) ? 65 ? % ? LV mass (2D) ?190.8 ?g ? LV mass (2D) index ??90.9 ? g/m2 ? Diastolic/Systolic Function ?Value ?Units (Range) ? MV E-wave Vmax ?0.7 ?m/sec ? MV deceleration [id number] ? msec ? MV A-wave Vmax ?0.9 ?m/sec ? MV E:A ratio ?0.8 ?ratio ? LV septal e' Vmax ?? 0.1 ?m/sec ? LV lateral e' Vmax ??0.1 ?m/sec ? LV average e' Vmax ??0.1 ?m/sec ? LV E:e' septal ratio9.8 ?ratio ? LV E:e' lateral rati8.5 ?ratio ? LV average E:e' rati8.5 ?ratio ? Tricuspid Valve ?Value ?Units (Range) ? RAP ? 3 ?mmHg ? Wall Motion: Segment Name ?Rest ? Base-Anteroseptal ?? Normal ? Base-Anterior ? Normal ? Base-Anterolateral ??Normal ? Base-Posterolateral Hypokinetic ? Base-Inferior ? Normal ? Base-Inferoseptal ?? Normal ? Mid-Anteroseptal ?Normal ? Mid-Anterior ?Normal ? Mid-Anterolateral ?? Hypokinetic ? Mid-Posterolateral ??Hypokinetic ? Mid-Inferior ?Normal ? Mid-Inferoseptal ?Normal ? [place]-Septal ? Normal ? [place]-Anterior ? Normal ? [place]-Lateral ?Normal ? [place]-Inferior ? Normal ? [place]-Tip ?Normal ? This report has been electronically sign ed by: _ Ramy Taylor MD ? 05/02/2019 08 :20:24 Images reviewed and interpretation alex [facility] Cardiac Ultrasound Laboratory Procedure Note Ramy Taylor MD - 05/02/2019Formatt ing of this note might be different from the original. Procedure: Transthoracic Echocardiogram Patient: ROSEANNE FARR(Age): (73y) Med Rec#: [id number] Sex: M Site Loc: [facility] [place] Ht / Wt: 177(cm)/93(kg) Pt. Loc: Adult Floor BSA: 2.1 Study Date: 05/02/2019 Pt. Type: Inpatie nt Tape: Referring: ROBERT DAVIS Reading: Ramy Taylor ([id number]) Lockmaker: Ilia Pickard RDCS Diagnosis: *Unstable angina (I20.0) BP: 115/71 SUMMARY: 1. The left ventricular chamber size is normal. Basal septal hypertrophy is observed. There is no evidence of LVO T obstruction. There are left ventricular segmental wall motion abnorm alities present, as shown in the diagram below. There is normal global le ft ventricular systolic function. The quantitative left ventricu lar ejection fraction by biplane Lance's method is 65%. 2. Right ventricular chamber size, wall thickness, and systolic function are within normal limits. 3. There is no hemodynamically significa nt valve disease. 4. There is mild dilatation of the aorti c root (3.9 cm), There is mild dilatation of the ascending aorta (3.7 c m). 5. See remainder of report for additiona l findings. Findings : Study Quality: Adequate Left Ventricle: The left ventricular jomar mber size is normal. Basal septal hypertrophy is observed. There is no evidence of LVOT obstructio n. No ventricular septal defect is visuali zed. There is normal global left ventricular systolic function. The quantitative left ventricular eject ion fraction by biplane Lance's method is 65%. There are left ventricular segmental wa ll motion abnormalities present, as shown in the diagram below. The left ventricular diastolic filling pattern is consistent with impaired LV relaxation. Doppler assessment is consistent with n ormal left sided filling pressure. The basal inferolateral, mid anterolate ral, and mid inferolateral wall segments are hypokinetic (score 2). Overall wallmotion score index is 1.19 Left Atrium: The left atrium is normal i n size. No atrial septal defect is visualized. Right Ventricle: Right ventricular chamb er size, wall thickness, and systolic function are within normal limi ts. Pulmonary artery hypertension could not be assessed due to inadequate tricuspid regurgitation jet. The estimated right atrial pressure is 3 mmHg. Right Atrium: The right atrium appears n ormal. Aortic Valve: The aortic valve is tricus pid. The aortic valve leaflets are mildly th ickened. Systolic excursion of the aortic valve is normal. There is no evidence of aortic valve st enosis. There is no evidence of aortic regurgit ation. Mitral Valve: The mitral valve appears n ormal in structure and function. There is trace mitral regurgitation pre sent. Tricuspid Valve: The tricuspid valve edwin ears normal in structure and function. There is trace tricuspid regurgitation present. Pulmonic Valve: The pulmonic valve is no t well visualized. Pericardium: The pericardium appears nor mal and there is no evidence of a pericardial effusion. Aorta: There is mild dilatation of the a ortic root. 3.9 cm There is mild dilatation of the ascendi ng aorta. 3.7 cm Pulmonary Artery: The main pulmonary art gómez appears normal. Venous: The inferior vena cava appears n ormal in size. There is a greater than 50% respiratory change in the inferior vena cava dimension. Misc: Two-dimensional echo, spectral Dop pler and color Doppler performed. Chambers 2D Value Units (Range) IVSd (2D) 1.4 cm LVPWd (2D) 1 cm IVS:LVPW ratio (2D) 1.4 ratio RWT (2D) 0.5 ratio RWT PW (2D) 0.5 ratio LVIDd (2D) 4.4 cm LVIDs (2D) 3.6 cm LVIDd (2D) index 2.1 cm/m2 LVIDs (2D) index 1.7 cm/m2 LV FS (2D) 18 % EF Teichholz (2D) 37 % Ao root diameter (2D3.9 cm (2.1 - 3.6) Ascending Ao 3.7 cm (2 - 3.5) Volumes/Mass Value Units (Range) LA Area 4 CH 14 cm2 (<21) LA ESV BP (A/L) inde22.1 ml/m2 RA AREA 4CH 14.9 cm2 LV ESV SP 4CH (MOD) 29.1 ml LV ESV SP 2CH (MOD) 35.6 ml LV EDV BP 95 ml LV ESV BP 33.4 ml LV EDV BP index 45.2 ml/m2 LV ESV BP index 15.9 ml/m2 BP EF (MOD) 65 % LV mass (2D) 190.8 g LV mass (2D) index 90.9 g/m2 Diastolic/Systolic Function Value Units (Range) MV E-wave Vmax 0.7 m/sec MV deceleration [id number] msec MV A-wave Vmax 0.9 m/sec MV E:A ratio 0.8 ratio LV septal e' Vmax 0.1 m/sec LV lateral e' Vmax 0.1 m/sec LV average e' Vmax 0.1 m/sec LV E:e' septal ratio9.8 ratio LV E:e' lateral rati8.5 ratio LV average E:e' rati8.5 ratio Tricuspid Valve Value Units (Range) RAP 3 mmHg Wall Motion: Segment Name Rest Base-Anteroseptal Normal Base-Anterior Normal Base-Anterolateral Normal Base-Posterolateral Hypokinetic Base-Inferior Normal Base-Inferoseptal Normal Mid-Anteroseptal Normal Mid-Anterior Normal Mid-Anterolateral Hypokinetic Mid-Posterolateral Hypokinetic Mid-Inferior Normal Mid-Inferoseptal Normal [place]Septal Normal [place]Anterior Normal [place]Lateral Normal [place]Inferior Normal [place]Tip Normal This report has been electronically sign ed by: _ Ramy Taylor MD 05/02/2019 08:20:24 Images reviewed and interpretation verif ied [facility] Cardiac Ultrasound Laboratory Robert Davis MD ECHO ORDERABLES Performing Organization Address City/State/ZIP Code Phon e Number [facility] (ABNORMAL) Hemoglobin A1c (05/02/2019 4:10 AM EST) Analysis Performed At Patho logist Time Signature Hemoglobin A1C 5.9 (H) 4.3 - 5.6 [facility] Comment: Reference Range: 4.3 - 5.6% 5.7 - 6.4% - Increased Risk of Developin g Diabetes Mellitus >= 6.5% - Consistent with diagnosis of D iabetes Mellitus In the absence of hyperglycemia (i.e. pl asma glucose > 200 mg/dL) or classic symptoms of hyperglycemia a repeat measu rement of HbA1c should be performed on a separate sample to confirm the diagnos is. Diagnosis and Classification of Diabetes Mellitus, Diabetes Care 2013; 36: Suppl. 1, S67-74 Est Avg Gluc See note mg/dL JARAD DONALDSON [facility] Comment: Estimated Average Glucose not appropriat e for patients over 70 years of age. eAG equivalents for HbA1c percentages: HbA1c(%) ?eAG(mg/dL) 6.0 ?126 6.5 ?140 7.0 ?154 7.5 ?169 8.0 ?183 8.5 ?197 9.0 ?212 9.5 ?226 10.0 ? 240 Limitations: The eAG calculation has not been validated on women, individuals below 18 years old and above 70 years old, and individuals with hemoglobinopathies. Additional resources are available on [facility] ADA website. Pepito ABAD, Sami J, Babatunde R, et al. ??Tr anslating the A1C assay into estimated average glucose values. ??Diabetes Care 2008:31(8):2323-2167. Specimen Anatomical Collection Method Collection Time Receive d Time (Source) Location / / Volume Laterality Blood specimen 05/02/2019 4:10 AM 019 4:18 (specimen) EST AM EST Resulting Agency Comment Spec In Lab Robert Davis MD CHEMISTRY ORDERABLES Performing Organization Address City/State/Z[place] [address] Lipid Panel (Reflex Direct LDL) (05/02/2019 4:10 AM EST) athologist Signature Chol, Total 97 mg/dL [facility] Comment: Lower Risk: <200 mg/dL Average Risk: 200-239 mg/dL Higher Risk: >ja=872 mg/dL Triglycerides 121 mg/dL [facility] Comment: Average Risk/Lower Risk: <150 mg/dL Borderline High Risk: 150-199 mg/dL High Risk: 200-499 mg/dL Very High Risk: >lm=178 mg/dL HDL 41 mg/dL [facility] Comment: Males: ?? Higher Risk: <40 mg/dL Females: ?? HIgher Risk: <50 mg/dL LDL Cholesterol 32 mg/dL [facility] Comment: Lowest Risk: <100 mg/dL Lower Risk: 100-129 mg/dL Borderline High Risk: 130-159 mg/dL High Risk: 160-189 mg/dL Very High Risk: >zw=197 mg/dL Chol/HDL Ratio 2.4 ratio [facility] Lipid Interpretation See Note [facility] Comment: Lipid management should be guided by a p atient? s ASCVD risk, goals and preferences. ACC/AHA Guidelines recommend high intens ity statin if clinical ASCVD or LDL greater than or equal to 190 mg/dL. [email or web address] Adults aged 40-75 with LDL 70-189 mg/dL should have their 10 year ASCVD risk estimated with the ACC/AHA ASCVD risk es timator http://tools.acc.org/MKORR-Zvez-Zxswsqbr r/ Statin should be discussed if risk great er than or equal to 7.5% in non-diabetics. With diabetes, moderate i ntensity statin is recommended if risk less than 7.5%, high intensity if risk g reater than or equal to 7.5%. Annual lipid monitoring on statins is no t necessary. Evaluate secondary causes of Triglycerid es greater than 500 mg/dL or LDL greater than 190 mg/dL: See table 6 of A CC/AHA Guideline. Lifestyle modification is a critical com ponent of ASCVD risk reduction. Specimen Anatomical Collection Method Collection Time Receive d Time (Source) Location / / Volume Laterality Blood specimen 05/02/2019 4:10 AM 019 4:18 (specimen) EST AM EST Resulting Agency Comment Spec In Lab Robert Davis MD CHEMISTRY ORDERABLES Performing Organization Address City/State/Z[place] [address] Differential, Automated (05/01/2019 10:45 PM EST) athologist Signature Neutrophils % 54.0 % [facility] Neutr Abs (ANC) 3.26 1.70 - [facility] 6.10 [facility] x10(3)/[facility] LABORATORY Lymphocytes % 31.2 % [facility] Lymphocytes Abs 1.9 0.9 - 3.2 [facility] x10(3)/[facility] LABORATORY Monocytes % 11.3 % [facility] Monocyte Abs 0.7 0.3 - 0.9 [facility] x10(3)/[facility] LABORATORY Eosinophils % 2.5 % [facility] Eosinophils Abs 0.2 0.0 - 0.4 [facility] x10(3)/[facility] LABORATORY Basophils % 0.7 % [facility] Basophils Abs 0.0 0.0 - 0.1 [facility] x10(3)/[facility] LABORATORY Immature Gran % 0.30 % [facility] Comment: Immature granulocytes(IG's)percentage an d absolute count will include metamyelocytes, myelocytes, and promyelo cytes. Blood smears from CBCs yielding IG's will be scanned manually for concor dance. If this scan disagrees with the automated IG or if promyelocytes are not ed, a manual differential will be performed. [place] Gran Abs 0.02 0.00 - 0.04 x10(3)/[facility] LABORATORY Specimen Anatomical Collection Method Collection Time Receive d Time (Source) Location / / Volume Laterality Blood specimen 05/01/2019 10:45 9 (specimen) PM EST 10:52 PM EST Resulting Agency Comment Spec In Lab Robert Davis MD HEMATOLOGY ORDERABLES Performing Organization Address City/State/[place] [address] (ABNORMAL) Hemogram (05/01/2019 10:45 PM EST) Analysis Performed At Patho logist Time Signature WBC 6.0 4.0 - 9.5 [facility] LABORATORY RBC 4.28 (L) 4.58 - JARAD ANIKA 5.54 [facility] x10(6)/[facility] LABORATORY Hemoglobin 13.3 (L) 13.7 - [facility] 16.[facility] gm/dL [facility] Hematocrit 40.7 40.5 - [facility] 48.5 % [facility] MCV 95.1 (H) 82.9 - [facility] 93.1 [facility] LABORATORY MCH 31.1 27.5 - JARAD ANIKA 32.1 pg [facility] LABORATORY MCHC 32.7 32.0 - JARAD ANIKA 35.7 gm/dL [facility] Platelets 141 (L) 145 - 357 [facility] x10(3)/[facility] LABORATORY RDWSD 45.5 (H) 36.0 - [facility] ANIKA 45.0 [facility] LABORATORY RDWCV 13.1 11.4 - [facility] ANIKA 13.8 % [facility] LABORATORY MPV 9.3 7.6 - 12.9 [facility] LABORATORY nRBC % Auto 0.0 % [facility] nRBC Abs Auto 0.000 0.000 - JARAD ANIKA 0.000 [facility] x10(3)/[facility] LABORATORY Specimen Anatomical Collection Method Collection Time Receive d Time (Source) Location / / Volume Laterality Blood specimen 05/01/2019 10:45 9 (specimen) PM EST 10:52 PM EST Resulting Agency Comment Spec In Lab Robert Davis MD HEMATOLOGY ORDERABLES Performing Organization Address City/State/[place] [address] Troponin (05/01/2019 10:45 PM EST) athologist Signature Troponin-T <0.01 0.00 - 0.00 [facility] ANIKA ng/mL [facility] Comment: The 99th percentile for Troponin T is le ss than 0.01 ng/mL, any detectable cTnT concentration using this assay should be considered elevated. According to the third universal definit ion of myocardial infarction the following criteria with a clinical prese ntation consistent with acute myocardial ischemia meets the diagnosis for a myocardial infarction (NV). Detection of a rise and/or fall of cTnT, with at least one value greater than the 99th percentile (> or = 0.01) and wi th at least one of the following ?? Symptoms of ischemia ?? New or presumed new significant ST-se gment-T wave (ST-T) changes or new left bundle branch block (LBBB) ?? Development of pathologic Q waves in the ECG ?? Imaging evidence of new loss of viabl e myocardium or new regional wall motion abnormality ?? Identification of an intracoronary th rombus by angiography or autopsy Samples for cTnT testing should be obtai david serially upon first assessment and again 3 to 6 hours later. If the clinica l suspicion is high and previous samples have been negative an additional sample may be indicated. Reference: [place] Definition of Myocardial Infarction. Journal of the [place] [employer] 2012;60:1581-98 Specimen Anatomical Collection Method Collection Time Receive d Time (Source) Location / / Volume Laterality Blood specimen 05/01/2019 10:45 9 (specimen) PM EST 10:52 PM EST Resulting Agency Comment Spec In Lab Robert Davis MD CHEMISTRY ORDERABLES Performing Organization Address City/State/ZIP [place] [address] [facility] [address] Hepatic Function Panel (05/01/2019 10:45 PM EST) athologist Signature Total Protein 6.4 6.1 - 8.0 [facility] ANIKA gm/dL [facility] Albumin 3.7 3.2 - 5.2 [facility] gm/dL [facility]ORY AST 19 0 - 39 JARAD ANIKA unit/L [facility] LAB[facility]ORY ALT 20 0 - 55 [facility] unit/L [facility]ORY Alk Phos 58 40 - 130 JRAAD ANIKA unit/L [facility] Total 0.4 0.2 - 1.3 JARAD DONALDSON Bilirubin mg/dL [facility] Bili, Direct 0.1 0.0 - 0.3 JARAD ANIKA mg/dL [facility] Specimen Anatomical Collection Method Collection Time Receive d Time (Source) Location / / Volume Laterality Blood specimen 05/01/2019 10:45 9 (specimen) PM EST 10:52 PM EST Resulting Agency Comment Spec In Lab Robert Davis MD CHEMISTRY ORDERABLES Performing Organization Address City/[facility]/ZIP Code Phon e Number [address] (ABNORMAL) pro-Brain Natriuretic Peptide (05/01/2019 10:45 PM EST) P athologist Signature ProBNP 189 (H) <=125 pg/mL [facility] Specimen Anatomical Collection Method Collection Time Receive d Time (Source) Location / / Volume Laterality Blood specimen 05/01/2019 10:45 9 (specimen) PM EST 10:52 PM EST Resulting Agency Comment Spec In Lab Robert Davis MD CHEMISTRY ORDERABLES Performing Organization Address City/[facility]/[place] [address] TSH (05/01/2019 10:45 PM EST) P athologist Signature TSH 1.99 0.27 - 4.20 JARAD DONALDSON mcIU/mL [facility]ORY Specimen Anatomical Collection Method Collection Time Receive d Time (Source) Location / / Volume Laterality Blood specimen 05/01/2019 10:45 9 (specimen) PM EST 10:52 PM EST Resulting Agency Comment Spec In Lab Robert Davis MD CHEMISTRY ORDERABLES Performing Organization Address City/[facility]/ZIP Code Phon e Number [address] Phosphorus (05/01/2019 10:45 PM EST) P athologist Signature Phosphorus 3.8 2.5 - 4.5 JARAD LEMUSANIKA mg/dL [facility] Specimen Anatomical Collection Method Collection Time Receive d Time (Source) Location / / Volume Laterality Blood specimen 05/01/2019 10:45 9 (specimen) PM EST 10:52 PM EST Resulting Agency Comment Spec In Lab Robert Davis MD CHEMISTRY ORDERABLES Performing Organization Address City/[facility]/ZIP Code Phon e Number [address] Magnesium (05/01/2019 10:45 PM EST) P athologist Signature Magnesium 0.90 0.69 - 1.07 [facility] mmol/L [facility]ORY Specimen Anatomical Collection Method Collection Time Receive d Time (Source) Location / / Volume Laterality Blood specimen 05/01/2019 10:45 9 (specimen) PM EST 10:52 PM EST Resulting Agency Comment Spec In Lab Robert Davis MD CHEMISTRY ORDERABLES Performing Organization Address City/[facility]/ZIP Code Phon e Number [address] Calcium (05/01/2019 10:45 PM EST) P athologist Signature Calcium 9.1 8.5 - 10.5 [facility] mg/dL [facility] Specimen Anatomical Collection Method Collection Time Receive d Time (Source) Location / / Volume Laterality Blood specimen 05/01/2019 10:45 9 (specimen) PM EST 10:52 PM EST Resulting Agency Comment Spec In Lab Robert Davis MD CHEMISTRY ORDERABLES Performing Organization Address City/[facility]/[place] [address] Basic Metabolic Panel (non-fasting) (05/01/2019 10:45 PM EST) P athologist Signature Glucose Lvl 100 65 - 199 [facility] mg/dL [facility] Comment: Diabetes: >=200 mg/dL plus symp toms BUN 15 10 - 20 mg/dL [facility] Creatinine 0.95 0.80 - 1.50 mg/dL [facility] Sodium 138 135 - 145 mmol/L [facility] Potassium 4.1 3.5 - 5.0 mmol/L [facility] Comment: Please note: ??Patients with WBC >100,00 0 may have falsely elevated Potassium levels. ??For accurate Potassium quantif ication in these patients send serum separator tube (gold top) for subsequent determinations. ??Contact the Clinical Chemistry Laboratory if there are any qu estions. Chloride 101 98 - 107 mmol/L [facility] CO2 26 22 - 31 mmol/L [facility] Anion Gap 11 5 - 15 mmol/L [facility] Calcium 9.1 8.5 - 10.5 mg/dL [facility] Estimated GFR 80 >=60 mL/min/1.73 m?? [facility] Comment: The eGFR was calculated using the CKD-EP I equation. As with all creatinine based estimates of kidney function, eGFR values calculated with the CKD-EPI equation are not accurate in patients wi th acute kidney failure, extremes of body mass or the acutely ill. [email or web address] eGFR 92 >=60 mL/min/1.73 m?? [facility] Comment: The eGFR was calculated using the CKD-EP I equation. As with all creatinine based estimates of kidney function, eGFR values calculated with the CKD-EPI equation are not accurate in patients wi th acute kidney failure, extremes of body mass or the acutely ill. [email or web address] Specimen Anatomical Collection Method Collection Time Receive d Time (Source) Location / / Volume Laterality Blood specimen 05/01/2019 10:45 9 (specimen) PM EST 10:52 PM EST Resulting Agency Comment Spec In Lab Robert Davis MD CHEMISTRY ORDERABLES Performing Organization Address City/State/Z[place] [address] EKG 12 Lead (05/01/2019 10:31 PM EST) Component Value Ref Range Test Analysis Performed Pathologis t Method Time At Signature Ventricular rate 70 BPM MUSE SYSTEM Atrial Rate 70 BPM MUSE SYSTEM P-R Interval 212 ms MUSE SYSTEM QRS Duration 86 ms MUSE SYSTEM Q-T Interval 394 ms MUSE SYSTEM QTC Calculated 425 ms MUSE SYSTEM (Bezet) Calculated P Darwin 45 degrees MUSE SYSTEM Calculated R Darwin -26 degrees MUSE SYSTEM Calculated T Darwin 60 degrees MUSE SYSTEM INTERPRETATION Sinus rhythm with 1st degree A-V block MUSE SYSTEM Otherwise normal ECG When compared with ECG of 19-DEC-2001 09:31, [place] interval has increased Criteria for Inferior infarct are no longer Present Nonspecific T wave abnormality no longer evident in Inferior leads Confirmed by MD Bryan, Jeff ([id number]) on 05/02/2019 8:31:2 6 AM Specimen Anatomical Collection Method Collection Time Receive d Time (Source) Location / / Volume Laterality 05/01/2019 10:31 05/02/2019 8:31 PM EST AM EST Robert Davis MD ECG ORDERABLES Performing Organization Address City/State/ZIP Code Phon e Number MUSE SYSTEM documented in this encounter Visit Diagnoses Diagnosis Unstable angina Intermediate coronary syndrome Essential hypertension Unspecified essential hypertension CAD (coronary artery disease) Coronary atherosclerosis of unspecified type of vessel, [place] or graft documented in this encounter Administered Medications Inactive Administered Medications - up to 3 most recent administrations Medication Order MAR Action Action Date Dose Rate Site aspirin EC tablet 81 mg Given 05/03/2019 8:06 AM EST 81 mg 81 mg, Oral, DAILY, First dose on Tue05/02/19 at 0900, Until Discontinued, Routine Given 05/02/2019 8:51 AM EST 81 mg atorvastatin (LIPITOR) tablet 40 mg Given 05/02/2019 5:19 PM EST 40 mg 40 mg, Oral, EVERY EVENING, First dose on Tue05/02/19 at 1700, Until Discontinued, Routine heparin (Porcine) subcutaneous injection Given 019 6:44 AM EST 5,000 Units 5,000 Units 5,000 Units, Subcutaneous, EVERY 8 HOURS SCHEDULED, First dose on Tue05/01/19 at 2245, Until Discontinued, Routine Given 05/01/2019 11:18 PM EST 5,000 Units lidocaine (XYLOCAINE) 10 mg/mL (1 %) inj ection 3 mg 3 mg (0.3 mL), Subcutaneous, ONCE PRN, 1 dose, Starting on Tue05/02/19 at 1253, Until Aiyana 05/03/19 at 1345, with discomfort with PIV i nsertion, Cath (Day of Procedure), Routine lisinopril (PRINIVIL;ZESTRIL) tablet 5 m g Given 05/02/2019 9:11 PM EST 5 mg 5 mg, Oral, DAILY, First dose on Tue05/01/19 at 2330, Until Discontinued, Routine Given 05/01/2019 11:17 PM EST 5 mg melatonin tablet 3 mg Given 05/02/2019 9:11 PM EST 3 mg 3 mg, Oral, NIGHTLY, First dose on Tue05/01/19 at 2315, Until Discontinued, Routine Given 05/01/2019 11:16 PM EST 3 mg metoprolol succinate (TOPROL-XL) XL tablet 50 Given 8:06 AM EST 50 mg mg 50 mg, Oral, 2 TIMES DAILY, First dose on Tue05/02/19 at 1800, Until Discontinued, DO NOT CRUSH OR OPEN Hold for SBP under 90 or HR under 50., Routine Given 05/02/2019 5:19 PM EST 50 mg metoprolol tartrate (LOPRESSOR) tablet 2 5 mg Given 05/01/2019 11:17 PM EST 25 mg 25 mg, Oral, EVERY 12 HOURS SCHEDULED (2 times per day), First dose on Tue05/01/19 at 2300, Until Discontinued, Routine metoprolol tartrate (LOPRESSOR) tablet 2 5 mg Given 05/02/2019 12:46 PM EST 25 mg 25 mg, Oral, EVERY 6 HOURS SCHEDULED, First dose (after last modification) on Tue05/02/19 at 1200, Until Discontinued, Hold for SBP under 90 or HR under 50., Routine sodium chloride 0.9 % (flush) flush 5 mL Given 05/02/2019 9:13 PM EST 5 mLs 5 mL, Intravenous, 2 TIMES DAILY, First dose on Tue05/01/19 at 2245, Until Discontinued, Routine Given 05/02/2019 9:00 AM EST 5 mLs Given 05/01/2019 10:45 PM EST 5 mLs sodium chloride 0.9 % (flush) flush 5 mL Given 05/03/2019 8:06 AM EST 5 mLs 5 mL, Intravenous, 2 TIMES DAILY, First dose on Tue05/01/19 at 2245, Until Discontinued, Routine Given 05/02/2019 9:00 AM EST 5 mLs Given 05/01/2019 10:45 PM EST 5 mLs sodium chloride 0.9 % (flush) flush 5 mL Given 05/03/2019 1:15 AM EST 5 mLs 5 mL, Intravenous, EVERY 12 HOURS, First dose on Tue05/02/19 at 1315, Until Discontinued, Cath (Day of Procedure), Routine sodium chloride 0.9 % (flush) flush 5-20 mL 5-20 mL, Intravenous, EVERY 1 MIN PRN, S tarting on Tue05/02/19 at 1253, Until Aiyana 05/03/19 at 1345, flush, Flush pertains to all indwelling lines. Flush per protocol found in the job aid using the link prov ided on this medication record., Cath (Day of Procedure), Routine documented in this encounter Active and Recently Administered Medications Times are shown in EST. Scheduled Medication Order 05/01/2019 05/02/2019 05/03/2019 aspirin EC tablet 81 mg 0851 (Given - Pr ovider: Kassi Meyers, LOR)0953 (AUG Hold - Provider: Admin Adt - Reason: Transfer to a Procedural area)1205 (AUG Unhold - Provider: Admin Adt) 0806 (Given - Provider: Abby Schneider RN) 81 mg, Oral, DAILY, First dose on Tue at 0900, Until Discontinued, Routine atorvastatin (LIPITOR) tablet 40 mg 0953 (AUG Hold - Provider: Admin Adt - Reason: Transfer to a Procedural area)1205 (AUG Unhold - Provider: Admin Adt)1719 (Given - Provider: Kassi Meyers, LOR) 40 mg, Oral, EVERY EVENING, First dose o n Tue05/02/19 at 1700, Until Discontinued, Routine heparin (Porcine) subcutaneous injection 5,000 Units ( CANCELED) 2318 (Given - Provider: Renae Diaz, LOR) 0644 (Given - Provider: Renae Diaz, RN) 5,000 Units, Subcutaneous, EVERY 8 HOURS SCHEDULED, First dose on Tue05/01/19 at 2245, Until Discontinued, Routine lisinopril (PRINIVIL;ZESTRIL) tablet 5 mg 2317 (Given - Provider: Renae Diaz, RN) 0953 (AUG Hold - Provider: Admin Adt - R arvin: Transfer to a Procedural area)1205 (AUG Unhold - Provider: Admin Adt)2111 (Given - Provider: Tatyana Rocha RN) 5 mg, Oral, DAILY, First dose on Tue at 2330, Until Discontinued, Routine melatonin tablet 3 mg 231 (Given - Provider: Renae Diaz RN) 0953 (AUG Hold - Provider: Admin Adt - Reason: Transfer to a Procedural area)1205 (AUG Unhold - Provider: Admin Adt)2110 (Given - Provider: Tatyana Rocha RN) 3 mg, Oral, NIGHTLY, First dose on Tue07/01/18 at 2315, Until Discontinued, Routine metoprolol succinate (TOPROL-XL) XL tablet 50 mg 1718 (Given - Provider: Kassi Meyers RN) 0806 (Given - Provider: Abby Schneider, LOR) 50 mg, Oral, 2 TIMES DAILY, First dose o n Tue05/02/19 at 1800, Until Discontinued, DO NOT CRUSH OR OPEN Hold for SBP under 90 or HR under 50., Routine metoprolol tartrate (LOPRESSOR) tablet 25 mg (CANCELED ) 2316 (Given - Provider: Renae Diaz RN) 25 mg, Oral, EVERY 12 HOURS SCHEDULED (2 times per day), First dose on Tue05/01/19 at 2300, Until Discontinued, Routine metoprolol tartrate (LOPRESSOR) tablet 25 mg (CANCELED) 0953 (AUG Hold - Provider: Admin Adt - Reason: Transfer to a Procedural area)1200 (Automatically Held - Provider: Admin Adt)1205 (AUG Unhold - Provider: Admin Adt)1246 (Given - Provider: Kassi Meyers RN) 25 mg, Oral, EVERY 6 HOURS SCHEDULED, Fi rst dose on Tue05/02/19 at 1200, Until Discontinued, Hold for SBP under 90 or HR under 50., Routine sodium chloride 0.9 % (flush) flush 5 mL 5 (Given - Provider: Renae Diaz RN) 0900 (Given - Provider: Kassi Meyers RN )0953 (AUG Hold - Provider: Admin Adt - Reason: Transfer to a Procedural area)1205 (AUG Unhold - Provider: Admin Adt)2112 (Given - Provider: Tatyana Rocha RN) 0900 (Not Given - Provider: Abby Schneider RN - Reason: See comment - Comment: PT ONLY HAS 1 iv) 5 mL, Intravenous, 2 TIMES DAILY, First dose on Tue05/01/19 at 2245, Until Discontinued, Routine sodium chloride 0.9 % (flush) flush 5 mL 2245 (Given - Provider: Renae Diaz, RN) 0900 (Given - Provider: Kassi Meyers, RN )0953 (AUG Hold - Provider: Admin Adt - Reason: Transfer to a Procedural area)1205 (AUG Unhold - Provider: Admin Adt)2100 (Not Given - Provider: Tatyana Rocha, LOR - Reason: Contraindicated) 0806 (Given - Provider: Abby Schneider RN) 5 mL, Intravenous, 2 TIMES DAILY, First dose on Tue05/01/19 at 2245, Until Discontinued, Routine sodium chloride 0.9 % (flush) flush 5 mL 1315 (Not Given - Provider: Kassi Meyers RN - Reason: Transfer to a Procedural area) 0115 (Given - Provider: Tatyana Rocha, LOR) 5 mL, Intravenous, EVERY 12 HOURS, First dose on Tue05/02/19 at 1315, Until Discontinued, Cath (Day of Procedure), Routine PRN Medication Order 05/01/2019 05/02/2019 05/03/2019 acetaminophen (TYLENOL) tablet 650 mg 09 53 ([facility] Hold - Provider: Admin Adt - Reason: Transfer to a Procedural area)1205 ([facility] Unhold - Provider: Admin Adt) 650 mg, Oral, EVERY 4 HOURS PRN, Startin g Tue05/01/19 at 2222, Until Aiyana 05/03/19 at 1345, Pain, Headaches, Maximum dose of acetaminophen is 4000 mg from all sources in 24 hours., Routine fentaNYL 50 mcg/mL multi-dose injection (CANCELED) 1013 (Given - Provider: Luis Alberto Lee, LOR) ONCE PRN, Starting Tue05/02/19 at 1013, Until Tue05/02/19 at 1205, Intra- Operative (Intra-Procedure), Routine heparin (porcine) injection (CANCELED) 1 058 (Given - Provider: Luis Alberto Lee, LOR) ONCE PRN, Starting Tue05/02/19 at 1058, Until Tue05/02/19 at 1205, Cath (Intra-Procedure), Routine iohexol (OMNIPAQUE) 350 mg/mL solution (CANCELED) 1125 (Given - Provider: Elijah Parker MD) ONCE PRN, Starting Tue05/02/19 at 1125, Until Tue05/02/19 at 1205, Cath (Intra-Procedure), Routine lidocaine (XYLOCAINE) 10 mg/mL (1 %) injection 3 mg 0953 ([facility] Hold - Provider: Admin Adt - Reason: Transfer to a Procedural area)1205 ([facility] Unhold - Provider: Admin Adt) 3 mg (0.3 mL), Subcutaneous, ONCE PRN, 1 dose, Starting Tue05/01/19 at 2222, Until Tue05/03/19 at 1345, for discomfort with PIV insertion, Routine lidocaine (XYLOCAINE) 10 mg/mL (1 %) injection 3 mg 3 mg (0.3 mL), Subcutaneous, ONCE PRN, 1 dose, Starting Tue05/02/19 at 1253, Until Tue05/03/19 at 1345, with discomfort with PIV insertion, Cath (Day of Procedure), Routine midazolam (PF) (VERSED) multi-dose injection (CANCELED) 1013 (Given - Provider: Luis Alberto Lee RN) ONCE PRN, Starting Tue05/02/19 at 1013, Until Tue05/02/19 at 1205, Cath (Intra-Procedure), Routine nitroGLYcerin (NITROSTAT) SL tablet 0.4 mg 0953 ([facility] Hold - Provider: Admin Adt - Reason: Transfer to a Procedural area)1205 ([facility]G Unhold - Provider: Admin Adt) 0.4 mg, Sublingual, EVERY 5 MIN PRN, Sta rting Tue05/01/19 at 2222, Until Tue05/03/19 at 1345, Chest pain, May repeat every 5 minutes for a total of three doses. Notify provider if chest pain not relie erica with nitroglycerin. Do not administe r nitroglycerin if the patient has received or taken phosphodiesterase (PDE-5) inhibitors such as sildenafil, tadalafil or vardenafil within the last 24 to 72 hours., Routine nitroGLYcerin 100 mcg/mL intracoronary dilution (CANCELED) 1057 (Given - Provider: Anil Shook MD) ONCE PRN, Starting Tue05/02/19 at 1057, Until Tue05/02/19 at 1205, Cath (Intra-Procedure), Routine sodium chloride 0.9 % (flush) flush 5-20 mL 0953 ([facility] Hold - Provider: Admin Adt - Reason: Transfer to a Procedural area)1205 ([facility] Unhold - Provider: Admin Adt) 5-20 mL, Intravenous, EVERY 1 MIN PRN, S tarting Tue05/01/19 at 2222, Until Aiyana 05/03/19 at 1345, flush, Flush pertains to all indwelling lines. Flush per protocol found in the job aid using the link provided on this medication record., Routine sodium chloride 0.9 % (flush) flush 5-20 mL 0953 ([facility] Hold - Provider: Admin Adt - Reason: Transfer to a Procedural area)1205 ([facility] Unhold - Provider: Admin Adt) 5-20 mL, Intravenous, EVERY 1 MIN PRN, S tarting Tue05/01/19 at 2222, Until Aiyana 05/03/19 at 1345, flush, Flush pertains to all indwelling lines. Flush per protocol found in the job aid using the link provided on this medication record., Routine sodium chloride 0.9 % (flush) flush 5-20 mL 5-20 mL, Intravenous, EVERY 1 MIN PRN, S tarting Tue05/02/19 at 1253, Until Aiyana 05/03/19 at 1345, flush, Flush pertains to all indwelling lines. Flush per protocol found in the job aid using the link pr ovided on this medication record., Cath (Day of Procedure), Rout ine verapamil (ISOPTIN) injection (CANCELED) 1056 (Given - Provider: Anil Shook MD) ONCE PRN, Starting Tue05/02/19 at 1056, Until Tue05/02/19 at 1205, Administer over 2 Minutes, Cath (Intra-Procedure) documented in this encounter Care Teams Senior Credit Officer Relationship Specialty Start Date End Date Janusz Reddy MD PCP - General General Internal Medicine [birth year] [address] [place] [address] documented as of this encounter
--- OUTSIDE RECORDS SUMMARY | 2021-12-27 18:58 | XMS_ITS | Encounter Summary ---
:1945 Author Organization [place] [address] Care Team Providers Name Role Phone Janusz Reddy MD Primary Care Provider [phone] Reason for Visit Auth/Cert Specialty Diagnoses / Procedures Referred By Contact Refer red To Contact Diagnoses Unstable angina Angina Procedures ER IPI Admit Referral ID Status Reason Start Date Expiration Date Visits Requ ested Visits Authorized [id number] 1 1 Encounter Details Date Type Department Care Team Description 05/02/2019 Surgery Straight Tooth Gear Generator Operator Tara Dustin Sangeeta Parker MD CARDIAC CATHETERIZATION [facility] DR [place] [address] [place] [address] [phone] (Wo rk) Social History Tobacco Use Types [...] place to sleep or slept in a half-way (including now)? Sex Assigned at Date Recorded Not on file documented as of this encounter Last Filed Vital Signs Vital Sign Reading Time Taken Comments Blood Pressure 125/79 05/02/2019 10:15 AM EST Pulse 69 05/02/2019 10:15 AM EST Temperature 36.7 ??C (98.1 ??F) 05/02/2019 8:00 AM EST Respiratory Rate 16 05/02/2019 10:15 AM EST Oxygen Saturation 90% 05/02/2019 10:15 AM EST Inhaled Oxygen Concentration - - Weight 92.1 kg (203 lb 0.7 oz) 05/02/2019 6:24 AM EST Height 177.8 cm (5' 10) 05/01/2019 9:24 PM EST Body Mass Index 29.01 05/01/2019 9:24 PM EST documented in this encounter Discharge Summaries Lynda Alejo APRN - 05/03/2019 9:16 AM EST Discharge Summary Patient Name: Laurent Alexandra Patient Age: 73 y.o. Language: Iranian Race: White Ethnicity: Not nor Admit date: [...] Inpatient Provider Contact Information: Dr. Bong Rae, SYSTEMS CHECKOUT MECHANICHenry Alejo, SYSTEMS CHECKOUT MECHANIC [phone] Discharge Diagnoses (Hospital Problems) and Secondary Diagnoses [...] year old stent in proximal OM1. TTE 05/02/ SUMMARY: ?? 1. The left ventricular chamber [...] 2001, HTN, and HLD who was [facility] due to abnormal stress test. ?? The [...] activity. ?? The patient was sent to [facility] for further testing. Per chart review, the PCP noted concerning findings and an EKG done in the outpatient setting which was not sent with the patient's chart. Patient then left AMA and presented to the [facility]. Troponin was noted to be negative x3. [...] monomorphic VT seen on stress echo at [place] Given the patient's risk factors and VT seen on stress test, it was decided to proceed with coronaryangiography. The patient went to the cardiac labor relations analyst for a diagnostic cath which showed non obstructive ASCVD with patent bare metal stent from 2001. Access site was via right radial artery and this was clean, dry and intact on day of discharge. Given monomorphic VT seen during stress test at [facility], the patient's beta leo [...] 12 05/03/2019 CREATININE 0.96 05/03/2019 Recent Labs 05/01/192244 TSH 1.99 Recent Labs 05/02/19 0410 HA1C 5.9* Recent Labs 05/01/192244 TROPONINT <0.01 Lab Results Component Value Date [...] appointments: During 8am-5pm Tuesday through Tuesday call [phone] to speak with a nurse in the cardiology clinic All other times call [phone] and ask to speak to the talent acquisition specialist continuous mining operator. Driving: No driving for 48 hours after catheterization. Follow up Appointments: PCP Janusz Reddy MD [phone] Please call tomorrow to make a follow up appointment with your PCP within 7-10 days of discharge. Cardiology You will be contacted by the [facility] cardiology clinic for follow up appointment details. Discharge References/Attachments None Lynda Alejo APRN Cardiovascular Medicine 05/03/2019 Associated attestation - Bong Mishra MD - 05/03/2019 12:13 PM EST Dear Colleagues, I was the attending at the time of discharge. Please call or email me if you have questions. Bong Mishra MD, DEQUAN Cardiovascular Medicine [email or web address] [phone], option 5 documented in this encounter Discharge Instructions Discharge InstructionsLynda Alejo APRN - 05/03/2019 9:15 AM EST Call your doctor if: Chest pain, shortness of breath, pain or swelling in legs occurs. If you have non-emergent questions between now and the time of your follow up appointments: During 8am-5pm Tuesday through Tuesday call [phone] to speak with a nurse in the cardiology clinic All other times call [phone] and ask to speak to the talent acquisition specialist continuous mining operator. Driving: No driving for 48 hours after catheterization. Follow up Appointments: PCP Janusz Reddy MD [phone] Please call tomorrow to make a follow up appointment with your PCP within 7-10 days of discharge. Cardiology You will be contacted by the [facility] cardiology clinic for follow [...] vehicle. All belongings sent with pt. Lynda Morfin APRN - 05/03/2019 9:00 AM EST Inpatient Cardiology Progress Note Patient Name: Laurent Alexandra Service: CYBER SYSTEMS OPERATIONS SPECIALIST / PA Responsible Attending: Bong Mishra MD Reason for continued hospitalization: Evaluation and management of positive stress test, VT seen on stress echo at [place] Medication adjustment Discharge home today Active Problems: [...] and vitals reviewed. Lab Comments: Recent Labs 05/03/1944405/01/192244 WBC 5.5 6.0 HGB 13.5* 13.3* HCT 41.6 40.7 PLATELET 142* 141* No results for input(s): INR in the last 168 hours. Recent Labs 05/03/1944405/01/192244 NA 140 138 K 4.4 4.1 CL 104 101 CO2 24 26 BUN 12 15 CREATININE 0.96 0.95 Recent Labs 05/01/192244 AST 19 ALT 20 ALKPHOS 58 BILITOT [...] hypertension, hyperlipidemia who was transferred from the [facility] after abnormal stress test with an episode [...] y.o. male whom I saw today with . I have personally interviewed and examined the [...] told me he has not seen a sprinkler truck driver since PCI in 2001). Bong Mishra MD, DEQUAN Cardiovascular Medicine Bong Mishra MD - 05/02/2019 9:46 AM EST Images from the original note were not included. Inpatient Cardiology Progress Note Patient Name: Laurent Alexandra Service: CYBER SYSTEMS OPERATIONS SPECIALIST / PA Responsible Attending: Bong Mishra MD Reason for continued hospitalization: Evaluation and management of positive stress test, VT seen on stress echo at [place] Awaiting cardiac catherization Active Problems: Active Hospital [...] in the last 168 hours. Recent Labs 05/01/195 NA 138 K 4.1 CL 101 CO2 26 BUN 15 CREATININE 0.95 Recent Labs 05/01/195 AST 19 ALT 20 ALKPHOS 58 BILITOT 0.4 BILIDIR 0.1 Recent Labs 05/01/195 CALCIUM 9.1 9.1 MAGNESIUM 0.90 PHOS 3.8 Recent Labs 05/01/195 TROPONINT <0.01 Pertinent Radiographic/Diagnostic Results: ECHO: 05/02/19 [...] hypertension, hyperlipidemia who was transferred from the [place] after abnormal stress test with an episode [...] ago Continue alcohol assessment scale Discussed with Bong Mishra MD Melinda Kyra, SYSTEMS CHECKOUT MECHANIC 05/02/2019 Cardiology Staff Addendum Laurent Alexandra is [...] told me he has not seen a sprinkler truck driver since PCI in 2001). Bong Mishra MD, [...] 2001, HTN, and HLD who was [facility] due to abnormal stress test. The patient [...] strenuous activity. The patient was sent to [facility] for further testing. Per chart review, the PCP noted concerning findings and an EKG done in the outpatient setting which was not sent with the patient's chart. Patient then left AMA and presented to the [facility]. Troponin was noted to be negative x3. [...] file Gets together: Not on file Attends zoroastrian service: Not on file Active member of [...] B/L, no calf tenderness, swelling, or erythema. Neuro/VARNISHER PLASTICOATER: AAO x 3, No gross motor deficits. No sensory loss. No gait ataxia. Skin/Integumentary: No rash Diagnostics: EKG: A&P: Laurent Alexandra is a 73 y.o. male w/ hx of OM CAD s/p stent in 2001, HTN[facility]. The [...] will monitor closely for alcohol withdrawal with [place] follow protocol in the event [facility] Full [...] EVALUATION NOTE: OUTCOME SUMMARY:Mr Fletcher To the labor relations analyst today with Finding of Clean coronaries PLAN [...] Procedure Note: Patient Name: Laurent Alexandra : [id number] MR#: [id number] Case Date: 05/02/2019 Press Operator Carbon Blocks: Surgeon(s) and Role: * Elijah Parker MD [...] (Child) would be surrogate decision maker per [place] surrogate decision making law. Any patient receiving care at [facility] must abide by [place] law. The hierarchy for surrogate decision making [...] (i) The agent with financial power of attorney law clerk or a conservator appointed in accordance with RSA 464-A. (j) The guardian of the patient???s estate. Current Coping/Education/Information Needs: awaiting cardiology testing Current Functional Ability: Independent Functional Status Prior to Admission: Independent; no DME Home Environment: Will stay with his S.O[place] - 1 level home and no [facility] Social & Family Supports/Community Resources: S.O[facility] and [facility] History: denies Substance Use/Abuse: denies Other Pertinent/Service Specific Information: none Health/Prescription Coverage: Primary Insurance: [employer] Secondary Insurance: Medicare A/B Pharmacy: uses [place] Primary Care Provider: Dr. Jose Moe [facility] Patient/Caregiver Goals of Treatment: Home without services Potential Needs for Transition of Care: Transportation: [facility] Anticipated Barriers to Discharge/Special Considerations: none Assessment/Plan: 73 y/o male; [place], Essential HTN, CAD - from [place] with abnormal stress test and NSVT on stress test; pending cath this morning; no home care services anticipated; Transport: [facility]. A member of the Care Management team will continue to monitor progress, follow for continuity of care and assist with transition of care planning. Rafaela Schumacher RN (Jonas) Pager [phone] Plan of Care - Robert Davis MD [...] 432 ms MUSE SYSTEM (Bezet) Calculated P Con[place] 33 degrees MUSE SYSTEM Calculated R Conover -37 degrees MUSE SYSTEM Calculated T [place] 27 degrees MUSE SYSTEM INTERPRETATION Normal sinus [...] 9 5:02 EST PM EST Melinda Rae APRN ECG ORDERABLES Performing Organization Address City/State/ZIP Code Phon e Number MUSE SYSTEM Differential, Automated (05/03/2019 4:45 AM EST) P athologist Signature Neutrophils % 56.9 % [facility] Neutr Abs (ANC) 3.11 1.70 - [facility] 6.10 [facility] x10(3)/[facility] LABORATORY Lymphocytes % 28.0 % [facility] Lymphocytes Abs 1.5 0.9 - 3.2 [facility] x10(3)/[facility] LABORATORY Monocytes % 10.4 % [facility] Monocyte Abs 0.6 0.3 - 0.9 [facility] x10(3)/[facility] LABORATORY Eosinophils % 3.8 % [facility] Eosinophils Abs 0.2 0.0 - 0.4 [facility] x10(3)/[facility] LABORATORY Basophils % 0.5 % [facility] Basophils Abs 0.0 0.0 - 0.1 [place] [id number](3)/[facility] LABORATORY Immature Gran % 0.40 % [facility] Comment: Immature granulocytes(IG's)percentage an d absolute count will include metamyelocytes, myelocytes, and promyelo cytes. Blood smears from CBCs yielding IG's will be scanned manually for concor dance. If this scan disagrees with the automated IG or if promyelocytes are not ed, a manual differential will be performed. [place] Gran Abs 0.02 0.00 - 0.04 x10(3)/[facility] MAR Y [facility]OR[facility] Specimen Anatomical Collection Method Collection Time Receive d Time (Source) Location / / Volume Laterality Blood specimen 05/03/2019 4:45 AM 019 4:49 (specimen) EST AM EST Resulting Agency Comment Spec In Lab Melinda Rae SYSTEMS CHECKOUT MECHANIC HEMATOLOGY ORDERABLES Performing Organization Address City/State/[place] [address] (ABNORMAL) Hemogram (05/03/2019 4:45 AM EST) Analysis Performed At Patho logist Time Signature WBC 5.5 4.0 - 9.5 [facility] x10(3)/[facility] LABORATORY RBC 4.37 (L) 4.58 - [facility] 5.54 [facility] x10(6)/[facility] LABORATORY Hemoglobin 13.5 (L) 13.7 - [place] 16.5 gm/dL [facility]OR[facility]ORY Hematocrit 41.6 40.5 - [place] 48.5 % [facility] MCV 95.2 (H) 82.9 - [place] 93.1 [facility] LABORATORY MCH 30.9 27.5 - [place] 32.1 pg [facility] MCHC 32.5 32.0 - [place] 35.7 gm/dL [facility] Platelets 142 (L) 145 - 357 [facility] x10(3)/[facility] LABORATORY RDWSD 45.4 (H) 36.0 - [place] 45.0 [facility] LABORATORY RDWCV 13.1 11.4 - [place] 13.8 % [facility] MPV 9.2 7.6 - 12.9 [place] [facility] LABORATORY nRBC % Auto 0.0 % [facility] nRBC Abs Auto 0.000 0.000 - [place] 0.000 [facility] x10(3)/[facility] LABORATORY Specimen Anatomical Collection Method Collection Time Receive d Time (Source) Location / / Volume Laterality Blood specimen 05/03/2019 4:45 AM 019 4:49 (specimen) EST AM EST Resulting Agency Comment Spec In Lab Melinda Rae APRN HEMATOLOGY ORDERABLES Performing Organization Address City/State/[place] [address] (ABNORMAL) BMP w/fasting Glucose (05/03/2019 4:45 AM EST) P athologist Signature Glucose 116 (H) 65 - 99 [facility] Fasting mg/dL [facility] Comment: ?Fasting* Glucose Interpretive C riteria Normal ?65-99 mg/dL Impaired Fasting glucose ?100-125 mg/dL Consistent with Diabetes Mellitus ? >or= 126 mg/dL *Fasting is defined as no caloric intake for at least 8 hours In the absence of unequivocal hypergly cemia a plasma glucose value of >or= 126 mg/dL should be repeated on a subseq u day. Diagnosis and Classification of Diabetes Mellitus, Position Statement from the [place] [employer]. ??Diabete s Care, Volume 33, Supplement 1, Jun 2009 BUN 12 10 - 20 mg/dL [facility] Creatinine 0.96 0.80 - 1.50 mg/dL [facility] Sodium 140 135 - 145 mmol/L [facility] Potassium 4.4 3.5 - 5.0 mmol/L [facility] Comment: Please note: ??Patients with WBC >100,00 0 may have falsely elevated Potassium levels. ??For accurate Potassium quantif ication in these patients send serum separator tube (gold top) for subsequent determinations. ??Contact the Clinical Chemistry Laboratory if there are any qu estions. Chloride 104 98 - 107 mmol/L [facility] CO2 24 22 - 31 mmol/L [facility] Anion Gap 12 5 - 15 mmol/L [facility] Calcium 8.9 8.5 - 10.5 mg/dL [facility] Estimated GFR 79 >=60 mL/min/1.73 m?? [facility] Comment: The eGFR was calculated using the CKD-EP I equation. As with all creatinine based estimates of kidney function, eGFR values calculated with the CKD-EPI equation are not accurate in patients wi th acute kidney failure, extremes of body mass or the acutely ill. [email or web address]/[facility] eGFR 91 >=60 mL/min/1.73 m?? [facility] Comment: The eGFR was calculated using the CKD-EP I equation. As with all creatinine based estimates of kidney function, eGFR values calculated with the CKD-EPI equation are not accurate in patients wi th acute kidney failure, extremes of body mass or the acutely ill. http://Onehub/[facility] Specimen Anatomical Collection Method Collection Time Receive d Time (Source) Location / / Volume Laterality Blood specimen 05/03/2019 4:45 AM 019 4:49 (specimen) EST AM EST Resulting Agency Comment Spec In Lab Melinda Ruffin Davidjessie SYSTEMS CHECKOUT MECHANIC CHEMISTRY ORDERABLES Performing Organization Address City/State/ZIP [place] [address] CARDIAC CATHETERIZATION (05/02/2019 11:24 AM EST) Specimen (Source) Anatomical Location Collection Method / Collectio n Time Received Time / Laterality Volume Narrative CARDIOMAC SYSTEM - 05/02/2019 11:[address] ?[facility] ? Cardiac Cathete rization/Intervention Report ? Patient Name: Laurent Alexandra ? Procedure Date: 05/02/2019 ? A #: [id number] ? Primary Physician: Elijah Parker ? Case #: [id number] ? File Name: [id number] ? Catheterization Order Number: [id number] ? [facility] ? Final Report [place], [place] ? Patient Name: ? Laurent Rich ult ?ID#: ?[id number] ? : ?1945 ? Procedure Date: ? November 27, 20 19 ?Case #: ? [id number] ? Room: ? 5 ? Case Physician: ? Elijah Parker M Coco. ? Start: ?10:46 ?Fellow: ? Eunadithyag Epi rodriguez M.D. ? Admission: ??05/01/2019 ? Referring Physician: [...] designated as ASA C lass III. The [facility] clinical frailty scale ?is 4: Vulnerable. ? [...] procedure was Urgent. The indication for ?the labor relations analyst visit is worsening angina. Chest pain symptom [...] these procedures. ?The attending physician was jonel t for the entire procedure. ?Dr. Elijah Parker M.D. was present during the moderate sedation ?intraservice time as documented by the sedation nurse. ??Case time = 00:34. ?Dr. Elijah Parker M.D. performed t he coronary angiography and left heart ?catheterization. ? Elijah Parker MGusD. ? Electronically Signed by: Elijah Parker M.D. ? Report Finalized: 05/02/2019 ??11:52 ? Report Last Ammended: 05/17/2019 ??10:43 ? Procedure Note Elijah Parker MD - 05/17/2019 [facility] Cardiac Catheterization/Intervention Re port Patient Name: Laurent Alexandra Procedure Date: 05/02/2019 A #: [id number] Primary Physician: Elijah Parker Case #: [id number] File Name: [id number] Catheterization Order Number: [id number] [facility] Straight Tooth Gear Generator Operator [facility] Final Report [place], [place] Patient Name: Laurent Alexandra ID#: [id number] : 1945 Procedure Date: May 02, 2019 [...] designated as ASA Class III . The [facility] clinical frailty scale is 4: Vulnerable. Diagnostic [...] e was Urgent. The indication for the labor relations analyst visit is worsening angina. Chest pain symptom [...] BRUCE ? (Age): 1945(73y) Med Rec#: ? [id number] ?Sex: ?M ? Site Loc: ? [facility] ?Ht / Wt: ??177(cm)/93(kg) Pt. Loc: ?Adult Floor ? BSA: ?2.1 Study Date: ?? 05/02/2019 ?Pt. Type: Inpatient Tape: ? Referring: ROBERT DAVIS Reading: Ramy Taylor ([id number]) Intake Nurse: Ilia Pickard RDCS Diagnosis: *Unstable angina (I20.0) BP: ? 115/71 [...] E-wave Vmax ?0.7 ?m/sec ? MV deceleration pddm997.1 ? msec ? MV A-wave Vmax ?0.9 [...] ? Mid-Inferior ?Normal ? Mid-Inferoseptal ?Normal ? Irvona-Septal ? Normal ? [place]-Anterior ? Normal ? [place]-Lateral ?Normal ? [place]-Inferior ? Normal ? Irv[place]-Tip ?Normal ? This report has been electronically sign ed by: _ Ramy Taylor MD ? 05/02/2019 08 :20:24 Images reviewed and interpretation lamif ied [facility] Cardiac Ultrasound Laboratory Procedure Note Ramy Taylor MD - 05/02/2019Formatt ing of this note might be different from the original. Procedure: Transthoracic Echocardiogram Patient: ROSEANNE FARR(Age): (73y) Med Rec#: [id number] Sex: M Site Loc: [facility] Ht / Wt: 177(cm)/93(kg) Pt. Loc: Adult Floor BSA: 2.1 Study Date: 05/02/2019 Pt. Type: Inpatie nt Tape: Referring: ROBERT DAVIS Reading: Ramy Taylor ([id number]) Intake Nurse: Ilia Pickard [facility] Diagnosis: *Unstable angina (I20.0) BP: 115/71 SUMMARY: [...] MV E-wave Vmax 0.7 m/sec MV deceleration ijrs981.1 msec MV A-wave Vmax 0.9 m/sec MV [...] Hypokinetic Mid-Posterolateral Hypokinetic Mid-Inferior Normal Mid-Inferoseptal Normal Irvona-Septal Normal [place]-Anterior Normal [place]-Lateral Normal [place]-Inferior Normal [place]-Tip Normal This report has been electronically sign ed by: _ Ramy Taylor MD 05/02/2019 08:20:24 Images reviewed and interpretation verif ied [facility] Cardiac Ultrasound Laboratory Robert Davis MD ECHO ORDERABLES Performing Organization Address City/State/ZIP Code Phon e Number HEARTLAB SYSTEM (ABNORMAL) Hemoglobin A1c (05/02/2019 4:10 AM EST) Analysis Performed At Patho logist Time Signature Hemoglobin A1C 5.9 (H) 4.3 - 5.6 [facility] Comment: Reference Range: 4.3 - [...] Mellitus, Diabetes Care 2013; 36: Suppl. 1, T07-75 Est Avg Gluc See note mg/dL [place] [facility] Comment: Estimated Average Glucose not appropriat [...] with hemoglobinopathies. Additional resources are available on [facility] ADA website. Pepito ABAD, Sami J, Babatunde R, et al. ??Tr anslating the A1C assay into estimated average glucose values. ??Diabetes Care 2008:31(8):9323-5502. Specimen Anatomical Collection Method Collection Time Receive d Time (Source) Location / / Volume Laterality Blood specimen 05/02/2019 4:10 AM 019 4:18 (specimen) EST AM EST Resulting Agency Comment Spec In Lab Robert Davis MD CHEMISTRY ORDERABLES Performing Organization Address City/State/[place] [address] Lipid Panel (Reflex Direct LDL) (05/02/2019 4:10 AM EST) athologist Signature Chol, Total 97 mg/dL [facility] Comment: Lower Risk: <200 mg/dL Average Risk: 200-239 mg/dL Higher Risk: >pg=422 mg/dL Triglycerides 121 mg/dL [facility] Comment: Average Risk/Lower Risk: <150 mg/dL Borderline High Risk: 150-199 mg/dL High Risk: 200-499 mg/dL Very High Risk: >zc=271 mg/dL HDL 41 mg/dL [facility] Comment: Males: ?? Higher Risk: <40 mg/dL Females: ?? HIgher Risk: <50 mg/dL LDL Cholesterol 32 mg/dL [facility] Comment: Lowest Risk: <100 mg/dL Lower Risk: 100-129 mg/dL Borderline High Risk: 130-159 mg/dL High Risk: 160-189 mg/dL Very High Risk: >bg=861 mg/dL Chol/HDL Ratio 2.[address] [facility] Lipid Interpretation See Note [facility] Comment: Lipid management should be guided by a p atient? s ASCVD risk, goals and preferences. ACC/AHA Guidelines recommend high intens ity statin if clinical ASCVD or LDL greater than or equal to 190 mg/dL. http://InnoCentive.Naymit/MJK-FRA-Lfwcctgrc Adults aged 40-75 with LDL 70-189 mg/dL should have their 10 year ASCVD risk estimated with the ACC/AHA ASCVD risk es timator http://tools.acc.org/OPRJZ-Lmzy-Ebnclvzz r/ Statin should be discussed if risk [...] Organization Address City/State/ZIP Code Phon e Number [place] [id number] [address]OS[address] LAB[address]ORY Drive Differential, Automated (05/01/2019 10:45 PM EST) athologist Signature Neutrophils % 54.0 % [facility] Neutr Abs (ANC) 3.26 1.70 - [facility] 6.10 [facility] x10(3)/[facility] LABORATORY Lymphocytes % 31.2 % [facility] Lymphocytes Abs 1.9 0.9 - 3.2 [facility] x10(3)/[facility] LABORATORY Monocytes % 11.3 % [facility] Monocyte Abs 0.7 0.3 - 0.9 [facility] x10(3)/[facility] [facility] [facility] Eosinophils % 2.5 % [facility] Eosinophils Abs 0.2 0.0 - 0.4 [facility] x10(3)/[facility] Basophils % 0.7 % [facility] Basophils Abs 0.0 0.0 - 0.1 [facility] x10(3)/[facility] Immature Gran % 0.30 % [facility] Comment: Immature granulocytes(IG's)percentage an d absolute count will include metamyelocytes, myelocytes, and promyelo cytes. Blood smears from CBCs yielding IG's will be scanned manually for concor dance. If this scan disagrees with the automated IG or if promyelocytes are not ed, a manual differential will be performed. [place] Gran Abs 0.02 0.00 - 0.04 x10(3)/[facility] Specimen Anatomical Collection Method Collection Time Receive d Time (Source) Location / / Volume Laterality Blood specimen 05/01/2019 10:45 9 (specimen) PM EST 10:52 PM EST Resulting Agency Comment Spec In Lab Robert Davis MD HEMATOLOGY ORDERABLES Performing Organization Address City/State/ZIP Code Phon e Number [place] [phone] (ABNORMAL) Hemogram (05/01/2019 10:45 PM EST) Analysis Performed At Patho logist Time Signature WBC 6.0 4.0 - 9.5 [place] x10(3)/[facility] RBC 4.28 (L) 4.58 - [place] 5.54 [facility] x10(6)/[facility]ATORY Hemoglobin 13.3 (L) 13.7 - [place] 16.5 gm/dL [facility] Hematocrit 40.7 40.5 - [place] 48.5 % [facility] MCV 95.1 (H) 82.9 - [facility] DUST[facility] 93.1 [facility] LABORATORY MCH 31.1 27.5 - [place] 32.1 pg [facility] MCHC 32.7 32.0 - [place] 35.7 gm/dL [facility] Platelets 141 (L) 145 - 357 [facility] x10(3)/[facility] RDWSD 45.5 (H) 36.0 - [place] 45.0 [facility] LABORATORY RDWCV 13.1 11.4 - [place] 13.8 % [facility] MPV 9.3 7.6 - 12.9 [place] [facility] LABORATORY nRBC % Auto 0.0 % [facility] nRBC Abs Auto 0.000 0.000 - [place] 0.000 [facility] x10(3)/[facility] LABORATORY Specimen Anatomical Collection Method Collection Time Receive d Time (Source) Location / / Volume Laterality Blood specimen 05/01/2019 10:45 9 (specimen) PM EST 10:52 PM EST Resulting Agency Comment Spec In Lab Robert Davis MD HEMATOLOGY ORDERABLES Performing Organization Address City/State/ZIP Code Phon e Number [address] Troponin (05/01/2019 10:45 PM EST) P athologist Signature Troponin-T <0.01 0.00 - 0.00 [place] ng/mL [facility] Comment: The 99th percentile for Troponin T is le ss than 0.01 ng/mL, any detectable cTnT concentration using this assay should be considered elevated. According to the third universal definit ion of myocardial infarction the following criteria with a clinical prese ntation consistent with acute myocardial ischemia meets the diagnosis for a myocardial infarction ([place]). Detection of a rise and/or fall of [...] additional sample may be indicated. Reference: Third [place] Definition of Myocardial Infarction. Journal of the [place] [employer] 2012;60:1581-98 Specimen Anatomical Collection Method Collection Time Receive d Time (Source) Location / / Volume Laterality Blood specimen 05/01/2019 10:45 9 (specimen) PM EST 10:52 PM EST Resulting Agency Comment Spec In Lab Robert Davis MD CHEMISTRY ORDERABLES Performing Organization Address City/State/[place] [address] Hepatic Function Panel (05/01/2019 10:45 PM EST) P athologist Signature Total Protein 6.4 6.1 - 8.0 [facility] [place] gm/dL [facility] Albumin 3.7 3.2 - 5.2 [place] gm/dL [facility] AST 19 0 - 39 [facility] [place] unit/L [facility] ALT 20 0 - 55 [facility] [place] unit/L [facility] Alk Phos 58 40 - 130 [facility] [place] unit/L [facility] Total 0.4 0.2 - 1.3 [facility] [place] Bilirubin mg/dL [facility] Bili, Direct 0.1 0.0 - 0.3 [place] mg/dL [facility] Specimen Anatomical Collection Method Collection Time Receive d Time (Source) Location / / Volume Laterality Blood specimen 05/01/2019 10:45 9 (specimen) PM EST 10:52 PM EST Resulting Agency Comment Spec In Lab Robert Davis MD CHEMISTRY ORDERABLES Performing Organization Address City/[facility]/ZIP Code Phon e Number [address] (ABNORMAL) pro-Brain Natriuretic Peptide (05/01/2019 10:45 PM EST) P athologist Signature ProBNP 189 (H) <=125 pg/mL [facility] Specimen Anatomical Collection Method Collection Time Receive d Time (Source) Location / / Volume Laterality Blood specimen 05/01/2019 10:45 9 (specimen) PM EST 10:52 PM EST Resulting Agency Comment Spec In Lab Robert Davis MD CHEMISTRY ORDERABLES Performing Organization Address City/[facility]/ZIP Code Phon e Number [address] TSH (05/01/2019 10:45 PM EST) P athologist Signature TSH 1.99 0.27 - 4.20 [place] mcIU/mL [facility] Specimen Anatomical Collection Method Collection Time Receive d Time (Source) Location / / Volume Laterality Blood specimen 05/01/2019 10:45 9 (specimen) PM EST 10:52 PM EST Resulting Agency Comment Spec In Lab Robert Davis MD CHEMISTRY ORDERABLES Performing Organization Address City/[facility]/[place] [address] Phosphorus (05/01/2019 10:45 PM EST) P athologist Signature Phosphorus 3.8 2.5 - 4.5 [place] mg/dL [facility] Specimen Anatomical Collection Method Collection Time Receive d Time (Source) Location / / Volume Laterality Blood specimen 05/01/2019 10:45 9 (specimen) PM EST 10:52 PM EST Resulting Agency Comment Spec In Lab Robert Davis MD CHEMISTRY ORDERABLES Performing Organization Address City/State/[place] [address] Magnesium (05/01/2019 10:45 PM EST) athologist Signature Magnesium 0.90 0.69 - 1.07 [facility] mmol/L [facility] Specimen Anatomical Collection Method Collection Time Receive d Time (Source) Location / / Volume Laterality Blood specimen 05/01/2019 10:45 9 (specimen) PM EST 10:52 PM EST Resulting Agency Comment Spec In Lab Robert Davis MD CHEMISTRY ORDERABLES Performing Organization Address City/[facility]/ZIP Code Phon e Number [address] Calcium (05/01/2019 10:45 PM EST) athologist Signature Calcium 9.1 8.5 - 10.5 [facility] Specimen Anatomical Collection Method Collection Time Receive d Time (Source) Location / / Volume Laterality Blood specimen 05/01/2019 10:45 9 (specimen) PM EST 10:52 PM EST Resulting Agency Comment Spec In Lab Robert Davis MD CHEMISTRY ORDERABLES Performing Organization Address City/[facility]/[place] [address] Basic Metabolic Panel (non-fasting) (05/01/2019 10:45 PM EST) athologist Signature Glucose Lvl 100 65 - 199 [facility] mg/dL [facility] Comment: Diabetes: >=200 mg/dL plus symp toms BUN 15 10 - 20 mg/dL [facility] Creatinine 0.95 0.80 - 1.50 mg/dL [facility] Sodium 138 135 - 145 mmol/L [facility] Potassium 4.1 3.5 - 5.0 mmol/L [facility] Comment: Please note: ??Patients with WBC >100,00 0 may have falsely elevated Potassium levels. ??For accurate Potassium quantif ication in these patients send serum separator tube (gold top) for subsequent determinations. ??Contact the Clinical Chemistry Laboratory if there are any qu estions. Chloride 101 98 - 107 mmol/L [facility] CO2 26 22 - 31 mmol/L [facility] Anion Gap 11 5 - 15 mmol/L [facility] Calcium 9.1 8.5 - 10.5 mg/dL [facility] Estimated GFR 80 >=60 mL/min/1.73 m?? [facility] Comment: The eGFR was calculated using the CKD-EP I equation. As with all creatinine based estimates of kidney function, eGFR values calculated with the CKD-EPI equation are not accurate in patients wi th acute kidney failure, extremes of body mass or the acutely ill. [email or web address] eGFR 92 >=60 mL/min/1.73 m?? [facility] Comment: The eGFR was calculated using the CKD-EP I equation. As with all creatinine based estimates of kidney function, eGFR values calculated with the CKD-EPI equation are not accurate in patients wi th acute kidney failure, extremes of body mass or the acutely ill. [email or web address] Specimen Anatomical Collection Method Collection Time Receive d Time (Source) Location / / Volume Laterality Blood specimen 05/01/2019 10:45 9 (specimen) PM EST 10:52 PM EST Resulting Agency Comment Spec In Lab Robert Davis MD CHEMISTRY ORDERABLES Performing Organization Address City/State/[place] [address] EKG 12 Lead (05/01/2019 10:31 PM EST) Component Value Ref Range Test Analysis Performed Pathologis t Method Time At Signature Ventricular rate 70 BPM MUSE SYSTEM Atrial Rate 70 BPM MUSE SYSTEM P-R Interval 212 ms MUSE SYSTEM QRS Duration 86 ms MUSE SYSTEM Q-T Interval 394 ms MUSE SYSTEM QTC Calculated 425 ms MUSE SYSTEM (Bezet) Calculated P Con[place] 45 degrees MUSE SYSTEM Calculated R [place] -26 degrees MUSE SYSTEM Calculated T [place] 60 degrees MUSE SYSTEM INTERPRETATION Sinus rhythm with 1st degree A-V block MUSE SYSTEM Otherwise normal ECG When compared with ECG of 19-DEC-2001 09:31, LA interval has increased Criteria for Inferior infarct [...] SYSTEM documented in this encounter Visit Diagnoses Not on filedocumented in this encounter Administered Medications Inactive Administered [...] on Tue05/02/19 at 1700, Until Discontinued, Routine fentaNYL 50 mcg/mL multi-dose injection Given 05/02/2019 10:13 AM EST 25 mcg ONCE PRN, Starting on Tue05/02/19 at 1013, Until Tue05/02/19 at 1205, Intra-Operative (Intra-Procedure), Routine heparin (porcine) injection Given 05/02/2019 10:58 AM EST 5,000 Units ONCE PRN, Starting on Tue05/02/19 at 1058, Until Tue05/02/19 at 1205, Cath (Intra-Procedure), Routine iohexol (OMNIPAQUE) 350 mg/mL solution Given 05/02/2019 11:25 AM EST 85 mLs ONCE PRN, Starting on Tue05/02/19 at 1125, Until Tue05/02/19 at 1205, Cath (Intra-Procedure), Routine lidocaine (XYLOCAINE) 10 mg/mL (1 %) inj [...] Given 05/02/2019 5:19 PM EST 50 mg midazolam (PF) (VERSED) multi-dose injec tion Given 05/02/2019 10:13 AM EST 1 mg ONCE PRN, Starting on Tue05/02/19 at 1013, Until Tue05/02/19 at 1205, Cath (Intra-Procedure), Routine nitroGLYcerin 100 mcg/mL intracoronary Given 05/02/2019 10:57 AM EST 150 mcg dilution ONCE PRN, Starting on Tue05/02/19 at 1057, Until Tue05/02/19 at 1205, [...] medication record., Cath (Day of Procedure), Routine verapamil (ISOPTIN) injection Given 05/02/2019 10:56 AM EST 2.5 mg ONCE PRN, Starting on Tue05/02/19 at 1056, Until Tue05/02/19 at 1205, Administer over 2 Minutes, Cath (Intra-Procedure) documented in this encounter Active and Recently Administered Medications Times are shown in EST. Scheduled Medication Order 05/01/2019 05/02/2019 05/03/2019 aspirin EC tablet 81 mg 0851 (Given - Pr ovider: Kassi Meyers RN)0953 (AUG Hold - Provider: Admin Adt - [...] Provider: Admin Adt)1719 (Given - Provider: Kassi Meyers RN) 40 mg, Oral, EVERY EVENING, First dose o n Tue05/02/19 at 1700, Until Discontinued, Routine heparin (Porcine) subcutaneous injection 5,000 Units ( CANCELED) 2318 (Given - Provider: Renae Diaz RN) 0644 (Given - Provider: Renae Diaz RN) 5,000 Units, Subcutaneous, EVERY 8 HOURS SCHEDULED, First dose on Tue05/01/19 at 2245, Until Discontinued, Routine lisinopril (PRINIVIL;ZESTRIL) tablet 5 mg 231 (Given - Provider: Renae Diaz RN) 0953 (AUG Hold - Provider: Admin Adt - R arvin: Transfer to a Procedural area)1205 (AUG Unhold - Provider: Admin Adt)2110 (Given - Provider: Tatyana Rocha, RN) 5 mg, Oral, DAILY, First dose on Tue at 2330, Until Discontinued, Routine melatonin tablet 3 mg 2316 (Given - Provider: Renae Diaz RN) 0953 (AUG Hold - Provider: Admin Adt - Reason: Transfer to a Procedural area)120 (AUG Unhold - Provider: Admin Adt)2110 (Given - Provider: Tatyana Rocha, RN) 3 mg, Oral, NIGHTLY, First dose on Tue07/01/18 at 2315, Until Discontinued, Routine metoprolol succinate (TOPROL-XL) XL tablet 50 mg 1718 (Given - Provider: Kassi Meyers, LOR) 08 (Given - Provider: Abby Schneider RN) 50 mg, Oral, 2 TIMES DAILY, First [...] Provider: Admin Adt)1246 (Given - Provider: Kassi Meyers, LOR) 25 mg, Oral, EVERY 6 HOURS SCHEDULED, Fi rst dose on Tue05/02/19 at 1200, Until Discontinued, Hold for SBP under 90 or HR under 50., Routine sodium chloride 0.9 % (flush) flush 5 mL 2244 (Given - Provider: Renae Diaz, RN) 0900 (Given - Provider: Kassi Meyers, RN )0953 (AUG Hold - Provider: Admin Adt - Reason: Transfer to a Procedural area)1205 (AUG Unhold - Provider: Admin Adt)2113 (Given - Provider: Tatyana Rocha, RN) 0900 (Not Given - Provider: Abby Schneider RN - Reason: See comment - Comment: PT ONLY HAS 1 iv) 5 mL, Intravenous, 2 TIMES DAILY, First dose on Tue05/01/19 at 2245, Until Discontinued, Routine sodium chloride 0.9 % (flush) flush 5 mL 2245 (Given - Provider: Renae Diaz RN) 0900 (Given - Provider: Kassi Meyers RN )0953 (AUG Hold - Provider: Admin Adt - Reason: Transfer to a Procedural area)1205 (AUG Unhold - Provider: Admin Adt)2100 (Not Given - Provider: Tatyana Rocha, RN - Reason: Contraindicated) 0806 (Given - Provider: Abby Schneider RN) 5 mL, Intravenous, 2 TIMES DAILY, First dose on Tue05/01/19 at 2245, Until Discontinued, Routine sodium chloride 0.9 % (flush) flush 5 mL 1315 (Not Given - Provider: Kassi Meyers RN - Reason: Transfer to a Procedural area) 0115 (Given - Provider: Tatyana Rocha, RN) 5 mL, Intravenous, EVERY 12 HOURS, First [...] 1 058 (Given - Provider: Luis Alberto Lee RN) ONCE PRN, Starting Tue05/02/19 at 1058, Until [...] 1 dose, Starting Tue05/02/19 at 1253, Until Aiyana 05/03/19 at 1345, with discomfort with PIV insertion, [...] PRN, Sta rting Tue05/01/19 at 2222, Until Aiyana 05/03/19 at 1345, Chest pain, May repeat every [...] 0.9 % (flush) flush 5-20 mL 0953 (AUG Hold - Provider: Admin Adt - Reason: Transfer to a Procedural area)1205 (AUG Unhold - Provider: Admin Adt) 5-20 mL, Intravenous, EVERY 1 MIN PRN, S tarting Tue05/01/19 at 2222, Until Tue05/03/19 at 1345, flush, Flush pertains to all indwelling lines. Flush per protocol found in the job aid using the link provided on this medication record., Routine sodium chloride 0.9 % (flush) flush 5-20 mL 0953 (AUG Hold - Provider: Admin Adt - Reason: Transfer to a Procedural area)1205 (AUG Unhold - Provider: Admin Adt) 5-20 mL, Intravenous, EVERY 1 MIN PRN, S tarting Tue05/01/19 at 2222, Until Tue05/03/19 at 1345, flush, Flush pertains to all [...] Procedure), Rout ine verapamil (ISOPTIN) injection (CANCELED) 105 (Given - Provider: Anil Shook MD) ONCE PRN, Starting Tue05/02/19 at 1056, Until Tue05/02/19 at 1205, Administer over 2 Minutes, Cath (Intra-Procedure) documented in this encounter Care Teams Dinkey Motor Operator Relationship Specialty Start Date End Date Janusz Reddy MD PCP - General General Internal Medicine 04/28/[address] [place] [address] documented as of this encounter
--- OUTSIDE RECORDS SUMMARY | 2021-12-27 18:58 | XMS_ITS | Encounter Summary ---
:1945 Author Organization [facility] [place] [address] Care Team Providers Name Role Phone Janusz Reddy MD Primary Care Provider [phone] Encounter Details Date Type Department Care Team Description 08/26/2021 Notes [facility] CARE [address] [place] [phone] Social History Tobacco Use Types Packs/Day Years [...] documented as of this encounter Progress Notes Beulah Santiago MSW - 08/26/2021 10:30 AM EDT Reason for Referral: Brief assessment of social and emotional needs. Met with pt after his sim todayto introduce myself and role of psychotherapist social worker to assess/address barriers to getting to and through treatments; address support needs and connect with community services and resources as needed. Family/Social Supports: Pt identified his daughter Daniel as a primary support. He also has son in the area. Living Situation/Daily Activities/Transportation: Pt manages his daily chores and activities. Pt lives local to this facility. He is unsure of the number of treatments he will be having. He does not expect any issues with transportation. 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 He indicated he is able to manage his financial obligations and living expenses. He has [facility] for insurance. Advance Directives: Pt indicated he has completed his advance directive. Requested a copy for his medical record. [place] Status: Pt is a . [facility]. Utilization of Community Resources: [facility] services Adjustment to Illness/Mental Health Concerns: Pt indicated he is coping as best he can. He has support from his children. Identified Needs: Pt did not identify any specific needs at this time. Referrals: None at this time. Social Work Interventions: Brief assessment Supportive Counseling Plan: Informed pt of REPAIR MECHANIC availability and contact information. Will follow to assess/address psychosocial needs. HUMA Whitfield, DIRECTOR UNIVERSITY, OSW-C Director Of Nuclear Medicine [facility] documented in this encounter Plan of Treatment Not on filedocumented as of this encounter Visit Diagnoses Not on filedocumented in this encounter Care Teams Pathology Laboratory Aides Teacher Relationship Specialty Start Date End Date Janusz Reddy MD PCP - General General Internal Medicine 04/28/[address] [place] [id number] documented as of this encounter
--- OUTSIDE RECORDS SUMMARY | 2021-12-27 18:58 | XMS_ITS | Encounter Summary ---
:1945 Author Organization [facility] [place] [address] Care Team Providers Name Role Phone Janusz Reddy MD Primary Care Provider [phone] Encounter Details Date Type Department Care Team Description 08/12/2021 Office Visit Radiation Oncology at [facility], [address] [phone] Social History Tobacco Use [...] place to sleep or slept in a longterm (including now)? Sex Assigned at Date Recorded Not on file documented as of this encounter Plan of Treatment Not on filedocumented as of this encounter Visit Diagnoses Not on filedocumented in this encounter Care Teams Calciner Operator Relationship Specialty Start Date End Date Janusz Reddy MD PCP - General General Internal Medicine 04/28/[address] [place] [id number] documented as of this encounter
--- OUTSIDE RECORDS SUMMARY | 2021-12-27 18:58 | XMS_ITS | Encounter Summary ---
:1945 Author Organization [facility] [place] [address] Care Team Providers Name Role Phone Janusz Reddy MD Primary Care Provider [phone] Encounter Details Date Type Department Care Team Description 09/07/2021 Orders Only Radiation Oncology [facility]azo, ETHEL [facility] D [facility] [place] [phone] RADIATION ONCOLOGY [phone] [place] [phone] (Wo rk) Social History Tobacco Use Types [...] place to sleep or slept in a fci (including now)? Sex Assigned at Date Recorded Not on file documented as of this encounter Plan of Treatment Not on filedocumented as of this encounter Visit Diagnoses Not on filedocumented in this encounter Care Teams Yard Jacker Relationship Specialty Start Date End Date Janusz Reddy MD PCP - General General Internal Medicine 04/28/[address] [place] [id number] documented as of this encounter
--- OUTSIDE RECORDS SUMMARY | 2021-12-27 18:58 | XMS_ITS | Encounter Summary ---
:1945 Author Organization [facility] [place] [address] Care Team Providers Name Role Phone Janusz Reddy MD Primary Care Provider [phone] Reason for Referral Diagnostic Test (Routine) - Closed Specialty Diagnoses / Procedures Referred By Contact Refer red To Contact Radiology Diagnoses Elevated PSA Bhargavi Figueroa PA [facility] Rad Mri Procedures MRI Pelvis wwo (Prostate) [address] [place] [address] Referral ID Status Reason Start Date Expiration Date Visits V isits Requested Authorized [id number] Closed Specialty 12/11/2020 02/09/2021 1 1 Service Requested Reason for Visit Diagnostic Test (Routine) - Closed Specialty Diagnoses / Procedures Referred By Contact Refer red To Contact Radiology Diagnoses Elevated PSA Bhargavi Figueroa PA [facility] Rad Mri Procedures MRI Pelvis wwo (Prostate) [address] [place] [address]773 Referral ID Status Reason Start Date Expiration Date Visits V isits Requested Authorized [id number] Closed Specialty 12/11/2020 02/09/2021 1 1 Service Requested Encounter Details Date Type Department Care Team Description 01/21/2021 Hospital Encounter MRI at [place] Bhargavi Figueroa Elevated PSA [facility] [place] [address] [address] [facility] [phone] [place], [place] [address] Social History Tobacco Use Types Packs/Day Years [...] on file documented as of this encounter Medications at Time of Discharge [...] mouth daily. documented as of this encounter Plan of Treatment Not on filedocumented as of this encounter Procedures Procedure Name Priority Date/Time Associated Diagnosis Comme nts MRI PELVIS WWO Routine 01/21/2021 12:48 PM Elevated PSA Result s for this (PROSTATE) EDT procedure are i n the results section. documented in this encounter Results MRI Pelvis wwo (Prostate) (01/21/2021 12:48 PM EDT) Anatomical Region Laterality Modality Pelvis Magnetic Resonance Specimen (Source) Anatomical Location Collection Method / Collectio n Time Received Time / Laterality Volume Impressions 01/21/2021 2:52 PM EDT Lesion 1 PZ: PI-RADS 4. Clinically signi ficant cancer is likely to be present. T2 location: axial series 7, image 21; s agittal ??series 2, image 11. Segmented in UroNav. PI-v2.1 Assessment Categories PI-RADS 1 -- Very low (clinically signif icant cancer is highly unlikely to be present) PI-RADS 2 -- Low (clinically significant cancer is unlikely to be present) PI-RADS 3 -- Intermediate (the presence of clinically significant cancer is equivocal) PI-RADS 4 -- High (clinically significan t cancer is likely to be present) PI-RADS 5 -- Very high (clinically signi ficant cancer is highly likely to be present) References: Anirudh S1, Sam JH1, Santos S1, Smi th C1, Noe J1, Czarniecki M1, Gold S1, Cruz G1, Rayjean claude K1, Bi MJ1, Lokesh BJ1, Urmila PA1, Jami PL1, Lianna B1. ??A Grading System for the Assessment of Ris k of Extraprostatic Extension of Prostate Cancer at Multiparametric MRI. Radiology. 2019 Aug;290(3):709-719. doi: 10.1148/radiol.5303678408. Epub 2018Jun 27. I have personally reviewed the image(s) and the resident's interpretation and agree with the findings, Topher sanches MD at 01/21/2021 2:52 PM Thank you for letting us participate in the care of this patient. ??If you are a health care provider and have any questi ons regarding this report, please contact the number below. ??For patients who have questions please contact the health child care centre director that requested your imaging first. ? Electronically signed by: Topher canales MD, [facility] ([phone]), at 01/21/2021 2:52 PM Narrative 01/21/2021 2:52 PM EDT EXAMINATION: MRI PELVIS WWO (PROSTATE) CLINICAL HISTORY: LAURA: Prostate: Tight a nus due to mild stricture 45 symmetric. Elevated PSA REASON FOR PROSTATE EXAM:Abnormal digita l rectal exam HAS PATIENT HAD PREVIOUS BIOPSY?:No MOST RECENT PSA LEVEL:12.32 TECHNIQUE: Multiparametric MRI of the pr ostate prior to and following IV administration of 18 cc of Dotarem contr ast. ?? QUALITY: Meets PI-RADS technical criteri a. COMPARISON: None FINDINGS: Prostate dimensions: 5.2 x 5.0 x 4.3cm. Estimated prostate volume: 58.1cc (X x Y x Z x 0.52) PSA density: 0.21 (PSA/prostate volume > 0.15 susp, 0.25 highly susp) Peripheral zone: Lesion 1. Posteromedial left mid gland. 1.2 cm in axial dimension. T2: Circumscribed, homogenous moderately hypointense mass PI-RADs: 4. DWI: ??Focal markedly hypointense on ADC and markedly hyperintense on high b-value DWI PI-RADs: 4. DCE-MRI: (+) focal early enhancement whi ch corresponds to the suspicious finding on T2WI and DWI. ? Combined PI-RADs: 4. Transition zone: No focal lesions T2: Typical encapsulated and homogenous circumscribed nodules with intervening areas of homogenous mildly hypointense s ignal. PI-RADs: 2. DWI: ??No abnormality on ADC and high b- value DWI. PI-RADs: 1. DCE-MRI: ??(-) No early arterial enhance ment. ? Combined PI-RADs: 1. Extraprostatic disease: Seminal vesicle involvement:No Lymphadenopathy:No Sphincter involvement:No Bladder involvement:No Osseous metastases: No MRI-derived Extraprostatic extension ris k: Grade 2: 38.2% (Curvilinear contact length and capsular bulge/irregularity) Other findings: Bilateral fat-containing inguinal hernias. Right greater than left scrotal hydroceles. Procedure Note Topher Gibson MD - 01/21/2021Format ting of this note might be different from the original. EXAMINATION: MRI PELVIS WWO (PROSTATE) CLINICAL HISTORY: LAURA: Prostate: Tight a nus due to mild stricture 45 symmetric. Elevated PSA REASON FOR PROSTATE EXAM:Abnormal digita l rectal exam HAS PATIENT HAD PREVIOUS BIOPSY?:No MOST RECENT PSA LEVEL:12.32 TECHNIQUE: Multiparametric MRI of the pr ostate prior to and following IV administration of 18 cc of Dotarem contr ast. QUALITY: Meets PI-RADS technical criteri a. COMPARISON: None FINDINGS: Prostate dimensions: 5.2 x 5.0 x 4.3cm. Estimated prostate volume: 58.1cc (X x Y x Z x 0.52) PSA density: 0.21 (PSA/prostate volume > 0.15 susp, 0.25 highly susp) Peripheral zone: Lesion 1. Posteromedial left mid gland. 1.2 cm in axial dimension. T2: Circumscribed, homogenous moderately hypointense mass PI-RADs: 4. DWI: Focal markedly hypointense on ADC a nd markedly hyperintense on high b-value DWI PI-RADs: 4. DCE-MRI: (+) focal early enhancement whi ch corresponds to the suspicious finding on T2WI and DWI. Combined PI-RADs: 4. Transition zone: No focal lesions T2: Typical encapsulated and homogenous circumscribed nodules with intervening areas of homogenous mildly hypointense s ignal. PI-RADs: 2. DWI: No abnormality on ADC and high b-va lue DWI. PI-RADs: 1. DCE-MRI: (-) No early arterial enhanceme nt. Combined PI-RADs: 1. Extraprostatic disease: Seminal vesicle involvement:No Lymphadenopathy:No Sphincter involvement:No Bladder involvement:No Osseous metastases: No MRI-derived Extraprostatic extension ris k: Grade 2: 38.2% (Curvilinear contact length and capsular bulge/irregularity) Other findings: Bilateral fat-containing inguinal hernias. Right greater than left scrotal hydroceles. IMPRESSION Lesion 1 PZ: PI-RADS 4. Clinically signi ficant cancer is likely to be present. T2 location: axial series 7, image 21; s agittal series 2, image 11. Segmented in UroNav. PI-v2.1 Assessment Categories PI-RADS 1 -- Very low (clinically signif icant cancer is highly unlikely to be present) PI-RADS 2 -- Low (clinically significant cancer is unlikely to be present) PI-RADS 3 -- Intermediate (the presence of clinically significant cancer is equivocal) PI-RADS 4 -- High (clinically significan t cancer is likely to be present) PI-RADS 5 -- Very high (clinically signi ficant cancer is highly likely to be present) References: Anirudh S1, Sam JH1, Santos S1, Smi th C1, Noe J1, Czarniecki M1, Gold S1, Cruz G1, Rayn K1, Bi MJ1, Wood BJ1, Kerans PA1, Jami PL1, Lianna B1. A Grading System for the Assessment of Ris k of Extraprostatic Extension of Prostate Cancer at Multiparametric MRI. Radiology. 2019 Aug;290(3):709-719. doi: 10.1148/radiol.8806896205. Epub 2018Jun 27. I have personally reviewed the image(s) and the resident's interpretation and agree with the findings, Topher sanches MD at 01/21/2021 2:52 PM Thank you for letting us participate in the care of this patient. If you are a health care provider and have any questi ons regarding this report, please contact the number below. For patients w ho have questions please contact the health child care centre director that requested your imaging first. Bhargavi CALDERÓN MRI ORDERABLES documented in this encounter Visit Diagnoses Diagnosis Elevated PSA Elevated prostate specific antigen (PSA) documented in this encounter Administered Medications Inactive Administered Medications - up to 3 most recent administrations Medication Order MAR Action Action Date Dose Rate Site gadoterate meglumine (Dotarem) Given 01/21/2021 12:34 PM EDT 18 mLs (0.5 mMol/mL) injection solution 0-100 mL 0-100 mL, Intravenous, ONCE PRN, 1 dose, Starting on Tue01/21/21 at 1234, Until Tue01/21/21 at 1234, Per Protocol, Radiology Contrast, Routine documented in this encounter Care Teams Underwriting Intern Relationship Specialty Start Date End Date Janusz Reddy MD PCP - General General Internal Medicine 04/28/[address] [place] [address] documented as of this encounter
--- OUTSIDE RECORDS SUMMARY | 2021-12-27 18:58 | XMS_ITS | Encounter Summary ---
:1945 Author Organization [facility] [place] [address] Care Team Providers Name Role Phone Janusz Reddy MD Primary Care Provider [phone] Reason for Referral Diagnostic Test (Routine) - Closed Specialty Diagnoses / Procedures Referred By Contact Refer red To Contact Radiology Diagnoses Malignant neoplasm of prostate Edgard Moses MD [facility] Rad Mri Procedures MRI Pelvis wo (Prostate) [address] [place] [address] [place] [address] [place], [place] [address] Referral ID Status Reason Start Date Expiration Date Visits V isits Requested Authorized [id number] Closed Specialty 04/10/2021 10/07/2021 1 1 Service Requested Reason for Visit Diagnostic Test (Routine) - Closed Specialty Diagnoses / Procedures Referred By Contact Refer red To Contact Radiology Diagnoses Malignant neoplasm of prostate Edgard Moses MD [facility] Rad Mri Procedures MRI Pelvis wo (Prostate) [address] [place] [address] [place] [address] [place], [place] [address] Referral ID Status Reason Start Date Expiration Date Visits V isits Requested Authorized [id number] Closed Specialty 04/10/2021 10/07/2021 1 1 Service Requested Encounter Details Date Type Department Care Team Description 08/25/2021 Hospital Encounter MRI at [facility] Edgard Moses, Malignant neoplasm [facility] of [address] [place] [address] [place], [place] RADIATION [address] ONCOLOGY [phone] [place] [address] Social History Tobacco Use Types Packs/Day Years [...] Sig Dispensed Refills Start Date End Date lisinopriL (Zestril) 10 mg 0.5 tablets 2 0 2021 Tablet times daily. hydrOXYzine (Atarax) 25 mg nightly as 0 2 Tablet needed. naltrexone (Depade) 50 mg daily as needed. 0 05/06 Tablet To help to abstain from alcohol metoprolol succinate Take 1 tablet by 14 tablet 0 9 (TOPROL-XL) 50 mg Tablet mouth 2 times Sustained Release 24 hr daily. carboxymethylcellulose Apply 1 drop to 0 (REFRESH PLUS) 0.5 % eye 4 times Dropperette daily as needed. atorvastatin (LIPITOR) 40 mg Take 40 mg by 0 Tablet mouth daily. LORazepam (Ativan) 1 mg Take 1 tablet by 2 tablet 0 202109/11/2021 TabletIndications: Malignant mouth See Admin neoplasm of prostate, Anxiety Instructions. Take 1 pill 60 minutes before procedure. Bring 2nd pill with you in case you need it. Do not drive after taking this medication. dexamethasone (DECADRON) 2 mg Take 1 tablet by 9 tablet 0 08/19/2021 09/11/2021 TabletIndications: Malignant mouth See Admin neoplasm of prostate Instructions. 1 tab twice a day for 3 days, then 1 tab daily for 3 days. Start the day OF the procedure. levoFLOXacin (LEVAQUIN) 500 Take 1 hour 1 tablet 0 022 09/11/2021 mg TabletIndications: prior to Malignant neoplasm of procedure prostate tamsulosin (Flomax) 0.4 mg 0.4 capsules 0 021 09/07/2021 Capsule every morning. bicalutamide (Casodex) 50 mg Take 1 tablet by 14 tablet 0 0 06/19/2021 09/11/2021 Tablet mouth daily. documented as of this encounter Plan of Treatment Not on filedocumented as of this encounter Procedures Procedure Name Priority Date/Time Associated Diagnosis Comme nts MRI PELVIS WO Routine 08/25/2021 10:00 AM Malignant neoplasm R esults for this (PROSTATE) EDT of prostate procedure are i n the results section. documented in this encounter Results MRI Pelvis wo (Prostate) [...] who have questions please contact the health manager progressive care that requested your imaging first. ? Narrative 08/25/2021 10:36 AM EDT EXAMINATION: MRI [...] ho have questions please contact the health manager progressive care that requested your imaging first. Edgard Moses MD IMG MRI ORDERABLES documented in this encounter Visit Diagnoses Diagnosis Malignant neoplasm of prostate documented in this encounter Care Teams Layer Up Relationship Specialty Start Date End Date Janusz Reddy MD PCP - General General Internal Medicine 04/28/[address] [place] [address] documented as of this encounter
--- OUTSIDE RECORDS SUMMARY | 2021-12-27 18:58 | XMS_ITS | Encounter Summary ---
:1945 Author Organization [facility] [place] [address] Care Team Providers Name Role Phone Janusz Reddy MD Primary Care Provider [phone] Encounter Details Date Type Department Care Team Description 08/25/2021 Travel Social History Tobacco Use Types Packs/Day Years [...] on filedocumented in this encounter Care Teams Ornamental Metal Worker Apprentice Relationship Specialty Start Date End Date Janusz Reddy MD PCP - General General Internal Medicine 04/28/[address] [place] [address] documented as of this encounter
--- OUTSIDE RECORDS SUMMARY | 2021-12-27 18:58 | XMS_ITS | Encounter Summary ---
:1945 Author Organization [facility] [place] [address] Care Team Providers Name Role Phone Janusz Reddy MD Primary Care Provider [phone] Reason for Visit Reason Comments Injections Lupron Treatment/Therapy Plan Authorization (Routine) - Closed Specialty Diagnoses / Procedures Referred By Contact Refer red To Contact Hematology and Oncology Diagnoses Malignant neoplasm of prostate Edgard Moses MD [facility] Hem Onc Infusion Procedures CHEMO [address] [place] [address] [facility] [place] [address] Referral ID Status Reason Start Date Expiration Date Visits Requ ested Visits Authorized [id number] Closed 04/10/2021 10/07/2021 99 99 Encounter Details Date Type Department Care Team Description 09/03/2021 [facility] prostate [address] [place] [phone] Social History Tobacco Use Types [...] place to sleep or slept in a assisted (including now)? Sex Assigned at Date Recorded Not on file documented as of this encounter Last Filed Vital Signs Vital Sign Reading Time Taken Comments Blood Pressure 142/76 09/03/2021 1:01 PM EDT Pulse 71 09/03/2021 1:01 PM EDT Temperature 36.9 ??C (98.4 ??F) 09/03/2021 1:01 PM EDT Respiratory Rate 18 09/03/2021 1:01 PM EDT Oxygen Saturation 98% 09/03/2021 1:01 PM EDT Inhaled Oxygen Concentration - - Weight - - Height - - Body Mass Index - - documented in this encounter Progress Notes Katja Park RN - 09/03/2021 1:00 PM EDT Infusion Note Diagnosis: Prostate Cancer Treatment: Lupron Injection Lupron 7.5 mg injected IM in right buttocks. Patient instructed on side effects of Lupron. Patient states understanding of teaching and patient aware to call clinic with any questions or concerns. Plan: Return to clinic as scheduled. documented in this encounter Plan of Treatment Not on filedocumented as of this encounter Visit Diagnoses Diagnosis Malignant neoplasm of prostate documented in this encounter Administered Medications Inactive Administered Medications - up to 3 most recent administrations Medication Order MAR Action Action Date Dose Rate Site leuprolide (Lupron Depot) Given 09/03/2021 1:06 PM EDT 7.5 mg Right Gluteal injection 7.5 mg 7.5 mg, Intramuscular, ONCE, 1 dose, On Aiyana 09/03/21 at 1315, Routine documented in this encounter Care Teams Rn Clinician Relationship Specialty Start Date End Date Janusz Reddy MD PCP - General General Internal Medicine 04/28/[address] [place] [phone] documented as of this encounter
--- OUTSIDE RECORDS SUMMARY | 2021-12-27 18:58 | XMS_ITS | Encounter Summary ---
:1945 Author Organization [place] [address] Care Team Providers Name Role Phone Janusz Reddy MD Primary Care Provider [phone] Encounter Details Date Type Department Care Team Description 08/17/2021 Refill Radiation Oncology at [facility], Katarina Laly , Malignant neoplasm of prostate; Mike HOROWITZ [address] [phone] Social History Tobacco Use Types Packs/Day Years [...] Telephone Encounter - Katarina Schneider RN - 08/17/2021 1:50 PM EDT Patient reports that he has received levofloxacin but not dexamethasone or lorazepam. If needed he would like these unfilled prescriptions to be sent to [facility] in [facility]. Telephone call to [facility] to follow up regarding prescription status. Pharmacist advised thatthey filled/sent only the levofloxacin and that the other two would be filled by mail order pharmacy, [facility]. Telephone call to [facility]. Pharmacist advised that they did not receive prescriptions for either dexamethasone nor lorazepam thus have not filled. I let her know that due to time constraint prior to his procedure, patient has requested that they be filled locally and thanked her for her infor mation. Plan: Will need to send prescriptions for dexamethasone and lorazepam to [facility] in [facility] so patient will have in time for scheduled procedure 08/19/21. Prescriptions pended to Dr. Moses. Telephone Encounter - Katarina Schneider RN - 08/17/2021 1:50 PM EDT ----- Message from Krysta Benton RN sent at 08/17/2021 8:26 AM EDT ----- Regarding: gold coil meds Check with pt if [facility], will need to reorder through local pharmacy. ----- Message ----- From: Krysta Benton RN Sent: 08/17/2021 12:00 AM EDT To: Krysta Benton RN Check with pt if [facility] ----- Message ----- From: Edgard Moses MD Sent: 08/12/2021 4:27 PM EST To: Krysta Benton RN All set Thank you Krysta ----- Message ----- From: Krysta Benton RN Sent: 08/12/2021 4:26 PM EST To: Krysta Benton RN, MD Dr Aurelia Martinez The lorazepam, dex & levaquin orders have been pended in this encounter for your signature, please. Isra, Krysta documented in this encounter Plan of Treatment Not on filedocumented as of this encounter Visit Diagnoses Diagnosis Malignant neoplasm of prostate Anxiety Anxiety state, unspecified documented in this encounter Care Teams Energy Efficiency Finance Manager Relationship Specialty Start Date End Date Janusz Reddy MD PCP - General General Internal Medicine 04/28/[address] [place] [phone] documented as of this encounter
--- OUTSIDE RECORDS SUMMARY | 2021-12-27 18:58 | XMS_ITS | Encounter Summary ---
:1945 Author Organization [facility] [place] [address] Care Team Providers Name Role Phone Janusz Reddy MD Primary Care Provider Reason for Visit Reason Comments Injections Lupron Treatment/Therapy Plan Authorization (Routine) - Closed Specialty Diagnoses / Procedures Referred By Contact Refer red To Contact Hematology and Oncology Diagnoses Malignant neoplasm of prostate Edgard Moses MD [facility] Hem Onc Infusion Procedures CHEMO [address] [place] [address] [facility] [place] [phone] Referral ID Status Reason Start Date Expiration Date Visits Requ ested Visits Authorized [id number] Closed 04/10/2021 10/07/2021 99 99 Encounter Details Date Type Department Care Team Description 08/06/2021 [facility] prostate [address] [place] [phone] Social History Tobacco Use Types [...] place to sleep or slept in a retirement (including now)? Sex Assigned at Date Recorded Not on file documented as of this encounter Last Filed Vital Signs Vital Sign Reading Time Taken Comments Blood Pressure 144/79 08/06/2021 12:08 PM EST Pulse 72 08/06/2021 12:08 PM EST Temperature 36.1 ??C (96.9 ??F) 08/06/2021 12:08 PM EST Respiratory Rate 20 08/06/2021 12:08 PM EST Oxygen Saturation 100% 08/06/2021 12:08 PM EST Inhaled Oxygen Concentration - - Weight 90.7 kg (200 lb) 08/06/2021 12:08 PM EST Height 179.1 cm (5' 10.5) 08/06/2021 12:08 PM EST Body Mass Index 28.29 08/06/2021 12:08 PM EST documented in this encounter Progress Notes Clemencia Esquivel RN - 08/06/2021 12:00 PM EST Infusion Note Diagnosis:Prostate Cancer Treatment: Lupron Injection States he tolerated previous injection well with no notable side effects. Lupron 7.5 mg injected IM in left buttocks. Patient instructed on side effects of [...] Dose Rate Site leuprolide (Lupron Depot) Given 08/06/2021 12:29 PM 7.5 mg Left Gluteal injection 7.5 mg EST 7.5 mg, Intramuscular, ONCE, 1 dose, On Aiyana 08/06/21 at 1230, Routine documented in this encounter Care Teams Agriculture Research Director Relationship Specialty Start Date End Date Janusz Reddy MD PCP - General General Internal Medicine 04/28/[address] [place] [phone] documented as of this encounter
--- OUTSIDE RECORDS SUMMARY | 2021-12-27 18:58 | XMS_ITS | Encounter Summary ---
:1945 Author Organization [facility] [place] [address] Care Team Providers Name Role Phone Janusz Reddy MD Primary Care Provider [phone] Encounter Details Date Type Department Care Team Description 08/12/2021 Notes Only Radiation Oncology at [facility] Edgard MD [address] [facility] RADIATION ONCOLOGY [place], [place] [phone] [place], [place] [id number] (Wo rk) Social History Tobacco Use Types [...] encounter Progress Notes Krysta Benton RN - 08/12/2021 4:06 PM EST Radiation Oncology Nurse Note [place], [place] Patient information for gold coil prostate placement Individual involved with teaching: [ ] via phone [x ] in person Patient [ x ] spouse [ ] Other [ x ] Daniel, his daughter Procedure Date: 08/19/21 Arrival Time:0800 Time of Procedure: 08:45 Location: [facility] Why gold coils? You and your doctor have discussed treatment options and have decided that Gold coils would be helpful in your external beam radiation treatment. The coil is a small 24 karat gold coil that will sit within the prostate and help to locate it on the planning CT scan. Usually 4 coils are used...2 on each side of the gland. WHY DO I NEED A SPACEOAR IMPLANT? ?? The SpaceOAR will help avoid rectal injury during radiation treatment. ?? The space between the prostate and the rectum can be increased by an absorbable gel spacer. ?? The SpaceOAR System is a soft gel-like material that temporarily moves the rectum 1/2 away from the high dose radiation area protecting the rectum. It will stay in your body for three months while you are receiving your radiation treatment, and is then naturally absorbed by your body and cleared in your urine in approximately six months. THE WEEK BEFORE THE PROCEDURE: STOP TAKING BLOOD THINNERS Stop taking medications that might thin your blood(anticoagulants) 1 week before your cold coil is scheduled to be placed i.e.;aspirin, ibuprofen, gingko biloba, Coumadin, Lovenox, etc. Please ask if you are not sure about any of your medications. Prescriptions to get filled:at [place] pharmacy Prescription for Antibiotic: to prevent infection [ x ]Levofloxacin 500 mg 1 hour before the procedure. [x ]2 fleet enemas-provided by clinic. No prescription needed. Prescription to help you relax ( optional, if needed) [ x ] Lorazepam 1 mg po 1 hour prior to procedure. Bring 2nd pill with you to procedure in case you need a repeat dose. You must have someone drive you home if you take this medication due to its sedative properties. Prescription for steroid: to prevent swelling at implant site. [x ]dexamethasone : starting the day of the procedure: 2 mg twice a day for 3 days then 2 mg once a day for 3 days > Start day of procedure once you getback home. THE DAY BEFORE THE PROCEDURE: ?? Eat a normal dinner (evening meal) ?? Administer one fleets enema before bedtime THE MORNING AND DAY OF THE PROCEDURE: ?? Administer the second fleets enema (2-3 hours prior to scheduled time of procedure) ?? Eat a normal meal and take your usual daily medications (except anticoagulants) ?? Take antibiotic levofloxacin 1 hour prior to procedure. ?? If ordered: take Lorazepam 1 mg , po 1 hour prior to procedure. Plan to arrive in the Radiation/Oncology Department 30 minutes before scheduled procedure. See above arrival time. You will be asked to change in to a hospital gown (remove everything from your waist down.) How is procedure done? You will be brought into a procedure room and asked to lie on your back with your legs placed in legsupports.. After application of lidocaine lubricant, an ultrasound probe will be inserted into your rectum in order to visualize your prostate gland. After you are given a local anesthetic, the 2 needles containing the coils will be gently inserted through the skin into your prostate gland. AFTER THE GOLD COIL PROCEDURE: ?? You may resume normal activity ( no bike riding, horse back riding, snowmobiling, or ATV riding for a couple days to avoid discomfort) ?? You may take extra-strength or regular Tylenol for any discomfort. ?? Start dexamethasone as directed. 1 pill twice a day for 3 days, then 1 pill once a day for 3 days. Always take this medication with food. Avoid taking too late in the evening as it may causes insomnia. It may cause temporary elevation of blood sugar for diabetic patients. ?? You abel resume any NSAIDs 48 hours after the procedure. Call us if you notice any unusual swelling ,difficulty with urination, pain or if you have any otherconcerns. Future Appointments: ?? MRI : You will receive separate instructions specifically from the hospital concerning your exactarrival time and what you need to do to prepare for this. Date: 08/25 ?? Your planning session (simulation) will be done at : [ ] [facility] at the Radiation Oncology Department section 2K [ x ] [facility] [place], [place] [Date: 08/26 ] [Time:arrive at 0930 ] For proper visualization of prostate, it is required that you have a moderately full bladder. This will require you to arrive 30 minutes before scheduled appointment and drink 2 glasses of water upon arrival. There are no restrictions with eating. Patient was provided a printed copy of these instructions. He and his daughter state their questionshave been answered and they verbalized understanding of these instructions. 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
--- OUTSIDE RECORDS SUMMARY | 2021-12-27 18:59 | XMS_ITS | Encounter Summary ---
:1945 Author Organization [facility] Address [address] [place] [address] Care Team Providers Name Role Phone Unavailable Primary Care Provider Unavailable Encounter Details Date Type Department Care Team Description 09/19/2006 Results Only [facility] - Javi Calle MD [employer] [address] [place] [address] [place], [place] [id number] [phone] Social History Tobacco Use Types Packs/Day Years Used Date Never Assessed Sex Assigned at Date Recorded Not on file documented as of this encounter Plan of Treatment Not on filedocumented as of this encounter Procedures Procedure Name Priority Date/Time Associated Diagnosis Comme [facility] SURGICAL PATHOLOGY Routine 09/19/2006 0:00 EDT Re sults for this procedure are i n the results section. documented in this encounter Results SURGICAL PATHOLOGY (09/19/2006 0:00 EDT) Pathology Report: SURGICAL PATHOLOGY REPORT [facility] Reports generated via electronic interface contain nati ginal data; LAB however they are lacking the format of the original re port. Caution should be taken when reading/interpreting unfo rmatted reports. Name: ? TAPAN CRONIN PH ? Accession #: ? [id number] ? : ? 1945 (Age: 61) ??M ? Collect Date: ? 09/19/2006 ? Location: ? [facility] ? Receive Date: ? 007 ? Provider: JAVI CALLE MD Copy to: ELIJAH ALARCON MD ? Final Pathologic Diagnosis: A. ?Colon, descending, 35 cm, polyp, biop sy: 1. ?Tubular adenoma. B. ?Colon, descending, 25 cm, polyp, poly p, biopsy: 1. ?Tubular adenoma. Document reviewed and electronically signed by: Anita Gates MD Report ??Date: 09/21/2006 17:09 By the signature above, the attending physician certif ies that he/she has personally conducted a gross and/or microscopic examin ation of the described specimens and rendered or confirmed the above diagnosi s. Specimen(s) Received: A. ?Polyp descending colon 35 cm B. ? Polyp descending colon 25 cm Clinical History: ? Screening Gross Description: ? Received in Hollande' s fixative labelled Gaboriault and polyp descending 35 cm is a 0.6 x 0.4 x 0.3 cm polypoid fragment of soft tissue. ??Bisected and submitted as (A). Received in Hollande's fixative labelled Gaboriault and polyp descending 25 cm is a 1.2 x 0.8 x 0.5 cm polypoid soft tissue fragm ent. ??Bisected and submitted as (B). (Dr. Horn)/mpl End of Report Specimen Performing Organization Address City/State/ZIP Code Phon e Number [facility] [address] [place] [address] [facility] [address] [place] [address] documented in this encounter Visit Diagnoses Not on filedocumented in this encounter
--- OUTSIDE RECORDS SUMMARY | 2021-12-27 18:59 | XMS_ITS | Clinical Summary ---
:1945 Author Organization [facility] Address [address] [place] [address] Care Team Providers Name Role Phone Krunal Hilario MD Primary Care Provider Social History Tobacco Use Types Packs/Day Years Used Date Never Assessed Sex Assigned at Date Recorded Not on file Plan of Treatment Health Maintenance Due Date Last Done Comments Fall Risk Screening 2011 Care Teams Cover Marker Relationship Specialty Start Date End Date Krunal Hilario MD PCP - General 02/25/[address] [place] [phone]
[2021-12-27 19:10] VITALS: BP 103/47; PULSE 73; RESP 16; TEMP 36.3
--- NOTE | 2021-12-27 19:50 | ED.GENADUL_ITS ---
Discharge Plan Disposition Patient Disposition: HOME Condition: Stable Discharge Details Chief Complaint: Abd Prob Clinical Impression: Scrotal swelling Primary Care Provider: Jose Alfredo Garcia ED Provider: Santana Millan Home Meds and New Rx's Prescriptions: No Action atenolol 25 MG tablet 1 tab PO DAILY aspirin [Aspir-81] 81 MG tablet,delayed release (DR/EC) 1 tab PO DAILY simvastatin 40 MG tablet 1 tab PO DAILY Discharge Instructions Instructions: Hydrocele (ED), Inguinal Hernia (ED) Additional Instructions: Please return tomorrow morning for official scrotal ultrasound. Please follow- up in the emergency department for your results and then follow-up with your urologist and surgical team at the [facility]. Please return if you develop worsening pain abdominal distention nausea vomiting constipation or other abnormal symptoms. Medical Decision Making 76-year-old male history of right inguinal hernia repair several years ago primarily follows at the [facility], presents with right swollen hemiscrotum for the past several weeks to months, nontender afebrile no urinary symptoms, no nausea vomiting no abdominal distention, normal bowel movements. Normal left hemiscrotum and normal penis, enlarged right hemiscrotum soft to the touch no palpable masses, no induration or erythema, bedside ultrasound able to identify testicle just external to inguinal canal with visible arterial blood flow, large hypoechoic fluid-filled structure within the right hemiscrotum likely hydrocele versus less likely bowel content. Patient will benefit from official ultrasound to better characterize right hemiscrotum structures. Patient be given follow-up with radiology tomorrow. Instructed to follow-up with results in the emergency department and to take these results to his urologist at next month's appointment. I would also like to give patient primary surgical follow-up in case this turns out to be an inguinal hernia however patient however patient prefers to follow with male provider at [facility]. Given strict return precautions for severe pain nausea vomiting distention constipation or other abnormal symptoms. HPI General Date/Time Provider Initiated Documentation: 12/27/21 19:06 . HPI Narrative: 76-year-old male history of right inguinal hernia repair several years ago presents with right testicular swelling over the past several weeks to months. Denies testicular discomfort or scrotal discomfort however feels a fullness and swelling in his scrotum. No nausea or vomiting, patient endorses normal bowel movements. No urinary symptoms. Follows primarily at the [facility] has a scheduled appointment with urology at the beginning of next month Related Data Home Medications Medication Instructions Recorded Confirmed aspirin 81 mg tablet,delayed 1 tab PO DAILY 12/20/14 04/30/19 release (Aspir-) atenolol 25 mg tablet 1 tab PO DAILY 12/20/14 12/27/21 simvastatin 40 mg tablet 1 tab PO DAILY 12/20/14 12/27/21 Allergies Allergy/AdvReac Type Severity Reaction Status Date / Time No Known Allergies Allergy Unverified 12/27/21 19:15 General Stated Complaint: Abd Prob MILAN: 4 Review of Systems Narrative: Review of Systems Constitutional: negative Eyes: negative ENT: negative Cardiovascular: negative Respiratory: negative Gastrointestinal: negative : Scrotal swelling Musculoskeletal: negative Skin: negative Neurologic: negative Psych: negative PFSH All Active Problems (Updated 12/27/21 @ 19:59 by Santana Millan MD) Scrotal swelling (Acute) Medical History (Updated 12/27/21 @ 19:59 by Santana Millan MD) High blood pressure High cholesterol Social History Smoking/Tobacco Use Status: Former Tobacco Use Smoking risk assessment performed?: Yes Alcohol Intake: current Alcohol Intake frequency: 3 or more drinks per day Alcohol type: beer Drug use: Never Substance use type: does not use Do you feel safe at home: Yes Do you feel safe in your relationship?: Yes Exam Narrative Exam Narrative: Physical Examination General: alert, awake, cooperative, resting comfortably, no acute distress HEENT: normocephalic, atraumatic; PERRL, EOM intact, conjunctiva normal; no nasa l discharge; moist mucous membranes, oral and pharyngeal mucosa normal, tolerating secretions Neck: supple, trachea midline; full ROM Chest: normal to inspection Respiratory: normal respiratory effort, speaking in full sentences, clear to auscultation, no wheezing, rales or rhonchi Cardiac: regular rate, regular rhythm, S1S2 intact, no murmurs rubs or gallops GI: abdomen soft, non-tender, non-distended; no palpable mass or hepatosplenomegaly : Normal uncircumcised penis no visible discharge, normal left hemiscrotum with palpable testicle, enlarged right hemiscrotum without erythema or induration nontender to the touch, palpable saclike structure within scrotum soft Skin: no lesions, rashes or trauma appreciated Neuro: AAOx3, normal speech, moving all extremities Extremities: Psych: Appropriate mood and affect Course Vital Signs Vital signs: Vital Signs Temperature 36.3 C L 12/27/21 19:10 Pulse 73 12/27/21 19:10 Respiratory Rate 16 12/27/21 19:10 Blood Pressure 103/47 L 12/27/21 19:10 Temperature 36.3 C L 12/27/21 19:10 Pulse 73 12/27/21 19:10 Respiratory Rate 16 12/27/21 19:10 Respiratory Effort Non-Labored 12/27/21 19:19 Blood Pressure 103/47 L 12/27/21 19:10 Pain Level 5 12/27/21 19:10 PAWSS Have you Been Recently Intoxicated or Drunk Within the Last 30 days?: Yes Have you Ever Experienced Previous Episodes of Alcohol Withdrawal?: No Have you ever Experienced Withdrawal Seizures?: No Have you ever Experienced Delirium Tremens(DT)s?: No Have you ever undergone Alcohol Rehabilitation Treatment (i.e, inpt ot outpatient treatment programs)?: No Have you ever Experienced Blackouts?: No Have you ever Combined Alcohol with other Downers within the last 90 days?: No Have you ever Combined Alcohol with any other Substance of Abuse during the last 90 days?: No Positive Blood Alcohol level on Presentation? [PCS.BAL]: No Evidence of Increased Autonomic Activity (i.e. HR>120, tremor, sweating, agitation, nausea)?: No Result: 1
== END 2021-12-27 20:12 | disposition home or self-care (01) ==
PROVIDERS: Emergency Provider Emergency Medicine; PCP Internal Medicine
DX: N50.89 Other specified disorders of the male genital organs (principal); I10 Essential (primary) hypertension; Z87.891 Personal history of nicotine dependence
CPT/HCPCS: 99281; 99282

== ENCOUNTER → 2021-12-29 02:43 | Outpatient (CLI) | payer OTHER, MEDICARE, SELFPAY ==
--- NOTE | 2021-12-29 10:45 | DI.US_ITS ---
Exam(s) US SCROTUM EXAM: US SCROTUM CLINICAL HISTORY: RT HEMISCROTUM SWELLING, ? HYDROCELE VS HERNIA. TECHNIQUE: Scrotal ultrasound performed using grayscale, color-flow and spectral Doppler analysis. COMPARISON: No exams were available for comparison FINDINGS: Right testicle: 3.1 x 1.7 x 3.3 cm Echogenicity: Normal. Contour: Smooth. Mass: None seen. Microlithiasis: None. Hydrocele: There is a large right hydrocele measuring 6.5 x 3.8 x 8.1 cm. Variocele: None. Hernia: No peristalsing bowel loop identified. Epididymis: Normal. Left testicle: 3.5 x 1.8 x 2.2 cm Echogenicity: Normal. Contour: Smooth. Mass: None seen. Microlithiasis: None. Hydrocele: There is a small hydrocele measuring 5 x 2.1 x 3.0 cm. Variocele: None. Hernia: No peristalsing bowel loop identified. Note is made of a 5 mm scrotal pleural. Epididymis: Normal. DOPPLER: Color: Symmetric and uniform, no hyperemia. Duplex: Bilateral testicular arterial waveforms visualized. IMPRESSION: 1. Normal appearing bilateral testicles. 2. Large right and small left hydroceles. DATA REPOSITORY:
== END ==
PROVIDERS: Visit Provider Emergency Medicine
DX: N43.3 Hydrocele, unspecified (principal)
CPT/HCPCS: 76870

== ENCOUNTER 2022-03-26 19:10 | Outpatient (CLI) | payer MEDICARE, SELFPAY ==
[2022-03-26 14:21] LABS: Abs Immature Grans 0.02 10^3/uL (0.0-0.06); Absolute Basophil Count 0.02 10^3/uL (0.0-0.2); Absolute Eosinophil Count 0.17 10^3/uL (0.0-0.7); Absolute Lymphocyte Count 0.98 10^3/uL (1.2-3.4); Absolute Monocyte Count 0.43 10^3/uL (0.1-0.8); Absolute Neutrophil Count 2.81 10^3/uL (1.2-6.7); Basophils % 0.5; Eosinophils % 3.8; HCT 36.5 % (40.0-50.0); Immature Grans % 0.5; Lymphocytes % 22.1; MCH 30.6 pg (27.0-33.0); MCHC 32.9 % (32.0-36.0); MCV 93 fL (80-95); MPV 8.3 fL (8.0-11.0); Monocytes % 9.7; Neutrophils % 63.4; Platelet Count 137 10^3/uL (130-400); RBC 3.92 10^6/uL (4.36-5.78); RDW 12.6 % (11.8-14.1); RDW-SD 42.6 fL; WBC 4.43 10^3/uL (4.4-10.8)
[2022-03-26 15:15] LABS: ALT 17 U/L (16-63); AST 14 U/L (15-37); Albumin 3.3 g/dL (3.4-5.0); Alkaline Phosphatase 70 U/L (46-116); Anion Gap 8.1 mmol/L (3-11); BUN 13 mg/dL (7-18); Bilirubin, Total 0.2 mg/dL (0.2-1.0); CO2 28.9 mmol/L (21.0-32.0); CREATININE 0.9 mg/dL (0.70-1.30); Calcium 8.9 mg/dL (8.5-10.1); Chloride 104 mmol/L (98-107); Estimated GFR 89.07 (mL/min/1.73m2); Glucose 170 mg/dL (74-106); Sodium 141 mmol/L (136-145); Total Protein 6.5 g/dL (6.4-8.2)
== END 2022-03-26 19:11 | disposition home or self-care (01) ==
LOC: LBO 19:12
PROVIDERS: Visit Provider Nurse Practitioner Family
DX: C61 Malignant neoplasm of prostate (principal)
CPT/HCPCS: 36415; 80053; 84403; 85025

== ENCOUNTER 2022-06-23 03:04 | Outpatient (CLI) | payer OTHER, SELFPAY ==
[2022-06-23 09:08] LABS: Abs Immature Grans 0.05 10^3/uL (0.0-0.06); Absolute Basophil Count 0.03 10^3/uL (0.0-0.2); Absolute Eosinophil Count 0.19 10^3/uL (0.0-0.7); Absolute Lymphocyte Count 1.12 10^3/uL (1.2-3.4); Absolute Monocyte Count 0.48 10^3/uL (0.1-0.8); Absolute Neutrophil Count 3.47 10^3/uL (1.2-6.7); Basophils % 0.6; Eosinophils % 3.6; HCT 39.7 % (40.0-50.0); HGB 12.7 g/dL (13.5-17.5); Immature Grans % 0.9; MCH 30.5 pg (27.0-33.0); MCV 95 fL (80-95); MPV 8.7 fL (8.0-11.0); Neutrophils % 64.9; Platelet Count 162 10^3/uL (130-400); RBC 4.17 10^6/uL (4.36-5.78); RDW-SD 48.5 fL; WBC 5.34 10^3/uL (4.4-10.8)
[2022-06-23 09:48] LABS: ALT 22 U/L (16-63); AST 14 U/L (15-37); Albumin 3.6 g/dL (3.4-5.0); Alkaline Phosphatase 74 U/L (46-116); Anion Gap 5.2 mmol/L (3-11); BUN 10 mg/dL (7-18); Bilirubin, Total 0.4 mg/dL (0.2-1.0); CO2 30.8 mmol/L (21.0-32.0); CREATININE 0.9 mg/dL (0.70-1.30); Chloride 103 mmol/L (98-107); Estimated GFR 89.07 (mL/min/1.73m2); Glucose 136 mg/dL (74-106); Potassium 4.4 mmol/L (3.5-5.1); Sodium 139 mmol/L (136-145); Total Protein 7.1 g/dL (6.4-8.2)
[2022-06-24 17:12] LABS: PSA, Ultrasensitive <0.01 ng/mL (<= 6.5)
[2022-06-28 19:44] LABS: Testosterone, Total 8.9 ng/dL (240-950)
== END 2022-06-23 03:05 | disposition home or self-care (01) ==
LOC: LBO 03:04
PROVIDERS: Visit Provider Nurse Practitioner Family
DX: C61 Malignant neoplasm of prostate (principal)
CPT/HCPCS: 36415; 80053; 84153; 84403; 85025

== ENCOUNTER 2022-09-20 02:29 | Outpatient (CLI) | payer OTHER, SELFPAY ==
[2022-09-20 08:28] LABS: Abs Immature Grans 0.02 10^3/uL (0.0-0.06); Absolute Basophil Count 0.03 10^3/uL (0.0-0.2); Absolute Eosinophil Count 0.13 10^3/uL (0.0-0.7); Absolute Lymphocyte Count 1.04 10^3/uL (1.2-3.4); Absolute Monocyte Count 0.44 10^3/uL (0.1-0.8); Absolute Neutrophil Count 3.06 10^3/uL (1.2-6.7); Basophils % 0.6; Eosinophils % 2.8; HCT 37.5 % (40.0-50.0); HGB 12.5 g/dL (13.5-17.5); Immature Grans % 0.4; MCH 30.9 pg (27.0-33.0); MCHC 33.3 % (32.0-36.0); MCV 93 fL (80-95); MPV 9.2 fL (8.0-11.0); Monocytes % 9.3; Neutrophils % 64.9; Platelet Count 117 10^3/uL (130-400); RBC 4.05 10^6/uL (4.36-5.78); RDW 13.1 % (11.8-14.1); RDW-SD 43.8 fL; WBC 4.72 10^3/uL (4.4-10.8)
[2022-09-20 08:47] LABS: ALT 51 U/L (16-63); AST 39 U/L (15-37); Albumin 3.2 g/dL (3.4-5.0); Alkaline Phosphatase 72 U/L (46-116); Anion Gap 9.8 mmol/L (3-11); BUN 12 mg/dL (7-18); Bilirubin, Total 0.5 mg/dL (0.2-1.0); CO2 25.2 mmol/L (21.0-32.0); CREATININE 0.9 mg/dL (0.70-1.30); Calcium 8.6 mg/dL (8.5-10.1); Chloride 106 mmol/L (98-107); Estimated GFR 88.51 (mL/min/1.73m2); Glucose 160 mg/dL (74-106); Sodium 141 mmol/L (136-145); Total Protein 6.6 g/dL (6.4-8.2)
[2022-09-23 16:21] LABS: Testosterone, Total 10 ng/dL (240-950)
== END 2022-09-20 02:30 | disposition home or self-care (01) ==
LOC: LBO 02:29
PROVIDERS: Visit Provider Nurse Practitioner Family
DX: C61 Malignant neoplasm of prostate (principal)
CPT/HCPCS: 36415; 80053; 84153; 84403; 85025

== ENCOUNTER 2024-05-18 01:03 | Outpatient (CLI) | payer OTHER, SELFPAY ==
--- NOTE | 2024-05-18 09:18 | DI.RAD_ITS ---
Exam(s) XR SHOULDER RT COMPLETE 2+V EXAM: XR SHOULDER RT COMPLETE 2+V CLINICAL HISTORY: RT SHOULDER PAIN, H/O TRAUMA,M25.511,[id number]. TECHNIQUE: 2D digital imaging was performed. COMPARISON: No exams were available for comparison FINDINGS: Five views No evidence of fracture or dislocation nor abnormal soft tissue calcifications. There are degenerati ve changes in the glenohumeral joint with mild joint space narrowing and there is osteophyte on the i nferior articular surface of the humeral head. There is also an element of upward subluxation of the humeral head in the osseous glenoid and diminution of the subacromial space. There are moderate deg enerative changes in the AC joint noted. Bone density normal. No osseous lesions. 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 Probably associa yelena with rotator cuff pathology. DATA REPOSITORY: RADIATION DOSE DELIVERED:
== END 2024-05-18 01:23 ==
PROVIDERS: Visit Provider Internal Medicine
DX: M19.011 Primary osteoarthritis, right shoulder (principal)
CPT/HCPCS: 73030